=== PATIENT | male | born 1960 | race Caucasian/White ===

== ENCOUNTER → 2018-01-03 12:19 | Outpatient (REF) | payer MEDICARE, MEDICAID, SELFPAY ==
[2018-01-03 21:54] LABS: Anion Gap 8.2 mmol/L (3-11); BUN 24 mg/dL (7-18); CO2 28.8 mmol/L (21.0-32.0); CREATININE 1.12 mg/dL (0.70-1.30); Calcium 9.1 mg/dL (8.5-10.1); Chloride 102 mmol/L (98-107); Glucose 128 mg/dL (70-100); Magnesium 2.1 mg/dL (1.8-2.4); Potassium 3.4 mmol/L (3.5-5.1); Sodium 139 mmol/L (136-145)
[2018-01-04 10:22] LABS: Vitamin B12 619 pg/mL (193-986)
[2018-01-04 10:39] LABS: FREE T4 1.02 ng/dL (0.76-1.46)
== END ==
LOC: NCHCN 12:19
PROVIDERS: PCP Family Medicine; Visit Provider Family Medicine
DX: E11.9 Type 2 diabetes mellitus without complications (principal); I50.9 Heart failure, unspecified; I34.0 Nonrheumatic mitral (valve) insufficiency
CPT/HCPCS: 80048; 82607; 83735; 84439; 84443

== ENCOUNTER → 2018-01-07 13:00 | Outpatient (CLI) | payer MEDICARE, MEDICAID, SELFPAY | PROVIDERS: PCP Family Medicine; Visit Provider Internal Medicine Interventional Cardiology | DX: I25.10 Atherosclerotic heart disease of native coronary artery without angina pectoris (principal); I42.9 Cardiomyopathy, unspecified; Z95.810 Presence of automatic (implantable) cardiac defibrillator; I51.89 Other ill-defined heart diseases; I27.0 Primary pulmonary hypertension; G47.30 Sleep apnea, unspecified; I34.0 Nonrheumatic mitral (valve) insufficiency; F11.90 Opioid use, unspecified, uncomplicated | CPT/HCPCS: 99213 ==

== ENCOUNTER → 2018-01-07 14:01 | Outpatient (CLI) | payer MEDICARE, MEDICAID, SELFPAY | PROVIDERS: PCP Family Medicine; Visit Provider Internal Medicine Interventional Cardiology | DX: R94.31 Abnormal electrocardiogram [ECG] [EKG] (principal) | CPT/HCPCS: 93005; 93010; 99213 ==

== ENCOUNTER 2018-01-08 15:18 | Emergency (ER) | payer OTHER, SELFPAY ==
[2018-01-08 15:25] VITALS: BP 126/80; PULSE 83; RESP 16; TEMP 36.6; O2SAT 96
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
[2018-01-08] MEDS: Ketorolac 30 MG/ML VIAL IM (16:42)
[2018-01-08] MEDS: Lidocaine 5% Patch 2 PATCH TP (17:00)
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
== END 2018-01-08 17:40 | disposition home or self-care (01) ==
PROVIDERS: Emergency Provider Emergency Medicine; PCP Family Medicine
DX: S16.1XXA Strain of muscle, fascia and tendon at neck level, initial encounter (principal); V43.62XA Car passenger injured in collision with other type car in traffic accident, initial encounter; R51 Headache; Z04.3 Encounter for examination and observation following other accident
CPT/HCPCS: 96372; 99285; 70450; 72125; 99284; J1885

== ENCOUNTER → 2018-02-08 00:45 | Outpatient (CLI) | payer MEDICARE, SELFPAY ==
--- NOTE | 2018-02-08 13:57 | MERGE_ITS ---
*[facility]* *[facility]* [address] [place] [address] Date of study: 02/08/2018 Transthoracic Echocardiography M-mode, complete 2D, complete spectral Doppler, and color Doppler *STUDY CONCLUSIONS* Summary: 1. Left ventricle: The cavity size was dilated. Wall thickness was normal. Systolic function was severely reduced. The estimated ejection fraction was 25-30%. Severe diffuse hypokinesis with regional variations. Akinesis of the anteroseptal, anterior, and apical myocardium. 2. Right ventricle: The cavity size was normal. Systolic function was low normal. 3. Left atrium: The atrium was moderately dilated. 4. Mitral valve: There was moderate regurgitation. 5. Inferior vena cava: The vessel was normal in size. The respirophasic diameter changes were in the normal range (greater than or equal to 50%), consistent with normal central venous pressure. *PATIENT PRESENTATION* Height: 188cm ((74in) ) S/D Pressure: 109 / 69 Weight: 104.3kg ((229.5lb) ) BSA: 2.35m^2 Test start time: 01:45 PM. Test stop time: 02:45 PM. ORDERING Tyrone Owens MD REFERRING Tyrone Owens MD PERFORMING Unknown PERFORMING [facility] RESET [facility] [place] *PROCEDURE DATA* Procedure information: This study was interpreted by [facility]. Pertinent images and digital data are archived for permanent storage and are available for subsequent review. Comparison was made to the study of 09/05/2017. Study status: Routine. Transthoracic echocardiography. M-mode, complete 2D, complete spectral Doppler, and color Doppler. A Transthoracic Echocardiogram was performed. Scanning was performed from the parasternal, apical, subcostal, and suprasternal notch acoustic windows. Images were obtained using an [employer] 2000 cardiac ultrasound machine. Image quality was adequate. Study completion: The patient tolerated the procedure well. There were no complications. History: PMH: CAD, Cardiomyopathy. *CARDIAC ANATOMY* Left ventricle: The cavity size was dilated. Wall thickness was normal. Systolic function was severely reduced. The estimated ejection fraction was 25-30%. Severe diffuse hypokinesis with regional variations. Regional wall motion abnormalities: Akinesis of the anteroseptal, anterior, and apical myocardium. Aortic valve: Trileaflet; mildly thickened leaflets. Mobility was not restricted. Doppler: Transvalvular velocity was within the normal range. There was no stenosis. There was no significant regurgitation. VTI ratio of LVOT to aortic valve: 1.13. Valve area (VTI): 4.1cm^2. Indexed valve area (VTI): 1.7cm^2/m^2. Peak velocity ratio of LVOT to aortic valve: 1.92. Valve area (Vmax): 7cm^2. Indexed valve area (Vmax): 3cm^2/m^2. Mean velocity ratio of LVOT to aortic valve: 0.75. Valve area (Vmean): 2.7cm^2. Indexed valve area (Vmean): 1.2cm^2/m^2. Mean gradient (S): 3.4mm Hg. Peak gradient (S): 1.1mm Hg. Aorta: Aortic root: The aortic root was normal in size. Ascending aorta: The ascending aorta was normal in size. Mitral valve: Mildly thickened leaflets. Mobility was not restricted. Doppler: Transvalvular velocity was within the normal range. There was no evidence for stenosis. There was moderate regurgitation. Valve area by pressure half-time: 5.5cm^2. Indexed valve area by pressure half-time: 2.3cm^2/m^2. Peak gradient (D): 2.6mm Hg. Left atrium: The atrium was moderately dilated. Right ventricle: The cavity size was normal. Systolic function was low normal. Pulmonic valve: Poorly visualized. Doppler: Transvalvular velocity was within the normal range. There was no evidence for stenosis. There was no significant regurgitation. Tricuspid valve: Structurally normal valve. Doppler: Transvalvular velocity was within the normal range. There was no evidence for stenosis. There was mild regurgitation. Pulmonary artery: Poorly visualized. Systolic pressure could not be accurately estimated. Right atrium: The atrium was normal in size. Pericardium: There was no pericardial effusion. Systemic veins: Inferior vena cava: The vessel was normal in size. The respirophasic diameter changes were in the normal range (greater than or equal to 50%), consistent with normal central venous pressure. Measurements Left ventricle Value 09/05/2017 Reference LV ID, ED, PLAX (H) 6.8 cm 8.0 3.5 - 6.0 LV ID, ES, PLAX (H) 5.8 cm 6.7 2.1 - 4.0 LV PW thickness, ED, PLAX 1.0 cm 0.6 LV end-diastolic volume, 157 ml 245 1-p A2C LV ejection fraction, 1-p 34 % 35 A2C LV end-diastolic volume, 198 ml 207 1-p A4C LV e', medial 0.072 m/sec 0.042 LV E/e', medial 11 23 Ventricular septum Value 09/05/2017 Reference IVS thickness, ED, PLAX 1.0 cm 0.6 LVOT Value 09/05/2017 Reference LVOT ID, A-P 2.2 cm 2.2 LVOT area 3.6 cm^2 3.7 LVOT peak velocity, S 1.02 m/sec 1.05 LVOT mean velocity, S 0.68 m/sec 0.79 LVOT VTI, S 22.0 cm 22.2 LVOT peak gradient, S 4.1 mm Hg 4.4 LVOT mean gradient, S 2.2 mm Hg 2.7 Stroke volume (SV), LVOT 80 ml 81 DP Stroke index (SV/bsa), 34 ml/m^2 35 LVOT DP Aortic valve Value 09/05/2017 Reference Aortic valve peak 0.5 m/sec 1.3 velocity, S Aortic valve mean 0.91 m/sec 0.92 velocity, S Aortic valve VTI, S 19.5 cm 29.1 Aortic mean gradient, S 3.4 mm Hg 3.7 Aortic peak gradient, S 1.1 mm Hg VTI ratio, LVOT/AV 1.13 0.76 Aortic valve area, VTI 4.1 cm^2 2.8 Velocity ratio, peak, 1.92 0.84 LVOT/AV Aortic valve area, peak 7 cm^2 3.1 velocity Velocity ratio, mean, 0.75 0.86 LVOT/AV Aortic valve area, mean 2.7 cm^2 3.2 velocity Aortic valve area/bsa, 1.2 cm^2/m^2 1.4 mean velocity Aorta Value 09/05/2017 Reference Aortic root ID, ED 3.4 cm 3.4 Ascending aorta ID, A-P, S 3.5 cm 3.5 Left atrium Value 09/05/2017 Reference LA ID, A-P, ES 4.6 cm 4.8 LA ID/bsa, A-P 1.9 cm/m^2 2.1 <=2.2 LA area, ES, A4C (H) 25 cm^2 28.5 8.8 - 23.4 LA area, ES, A2C 27 cm^2 24 LA volume/bsa, S 43 ml/m^2 LA volume, ES, 2-p 92 ml 87 LA volume/bsa, ES, 2-p 39 ml/m^2 37 LA/aortic root ratio 1.34 1.42 Mitral valve Value 09/05/2017 Reference Mitral E-wave peak 0.81 m/sec 0.97 velocity Mitral A-wave peak 0.48 m/sec 0.64 velocity Mitral deceleration time (L) 138 ms 129 150 - 230 Mitral pressure half-time 40 ms 38 Mitral peak gradient, D 2.6 mm Hg 3.8 Mitral E/A ratio, peak 1.7 1.53 Mitral valve area, PHT, DP 5.5 cm^2 5.9 Tricuspid valve Value 09/05/2017 Reference Tricuspid regurg peak 2.5 m/sec 3.2 velocity Tricuspid peak RV-RA 25.1 mm Hg 40 gradient Right atrium Value 09/05/2017 Reference RA area, ES, A4C 16.6 cm^2 22.5 8.3 - 19.5 Legend: (L) and (H) rosemary values outside specified reference range. I have personally reviewed the images and have reviewed and edited the reported findings. Electronically signed by Irvin Martinez 02/08/2018 15:05
== END ==
PROVIDERS: PCP Family Medicine; Visit Provider Internal Medicine Interventional Cardiology
DX: I25.10 Atherosclerotic heart disease of native coronary artery without angina pectoris (principal); I42.9 Cardiomyopathy, unspecified; I50.1 Left ventricular failure, unspecified; I05.1 Rheumatic mitral insufficiency
CPT/HCPCS: 93306

== ENCOUNTER 2018-06-10 12:58 | Emergency (ER) | payer MEDICARE, MEDICAID, SELFPAY ==
[2018-06-10] VITALS (55 sets, daily range): BP systolic 93–134; BP diastolic 17–85; PULSE 49–82; RESP 8–22; TEMP 36.3–36.7; O2SAT 91–198
--- NOTE | 2018-06-10 13:10 | W.ED.GENAD ---
Discharge Plan Disposition Patient Disposition: AGAINST MEDICAL ADVICE Condition: Serious Discharge Details Chief Complaint: Palpitatns Clinical Impression: Implantable cardioverter-defibrillator (ICD) discharge Reason For Visit: ICD firing more than usual Primary Care Provider: Farida Hall V ED Provider: Margareth Contreras Home Meds and New Rx's Prescriptions: No Action clonazepam 1 MG tablet,disintegrating 0.5 tab PO BID RF: 0 methadone [Dolophine] 10 MG tablet 60 mg PO TID RF: 0 aspirin [Aspir-81] 81 MG tablet,delayed release (DR/EC) 81 mg PO DAILY AM RF: 0 nitroglycerin [Nitrostat] 0.4 MG tablet, sublingual 0.4 mg Sublingual DIRECTED PRNRF: 0 oxycodone 20 MG tablet 1 - 2 tab PO Q4H PRN PRNRF: 0 dronabinol 5 MG capsule 5 mg PO BID PRNRF: 0 Narcan 4 MG spray,non-aerosol 4 mg Intranasal PRN PRNRF: 0 Sildenafil Citrate [Sildenafil] 20 MG Tablet 20 mg PO TID RF: 0 gabapentin 300 MG capsule 300 mg PO TID RF: 0 gabapentin 600 MG tablet 1,200 mg PO TID RF: 0 metoprolol succinate 50 MG tablet extended release 24 hr 50 mg PO DAILY RF: 0 Incruse Ellipta 7 CAP/INH blister with device 62.5 mcg Inhalation DAILY PRN PRNRF: 0 torsemide [Demadex] 20 MG tablet 20 mg PO DAILY Qty: 30 RF: 0 atorvastatin 40 MG tablet 40 mg PO HS Qty: 5 RF: 0 lisinopril 5 MG tablet 5 mg PO DAILY Qty: 5 RF: 0 prasugrel [Effient] 10 MG tablet 10 mg PO DAILY Qty: 5 RF: 0 Discharge Instructions Additional Instructions: You are leaving against medical advise. You may return any time for further care. You are at risk for permanent disability or secondary to this issue. Referrals: Farida Hall MD [Primary Care Provider] - Discharge Data Discharge Date/Time-TO BE ENTERED AT DEPARTURE: 06/10/18 18:30 Medical Decision Making <Denia Cummins MD - Last Filed: 06/12/18 11:57> Kareem Zuluaga is a 57-year-old man with history of coronary artery disease with MIs in the past, cardiac arrest in the past, status post [employer] ICD placed 06/21 presenting to the emergency department with several episodes of ICD firing preceded by lightheadedness. On exam patient is well and nontoxic appearing. His benign cardiopulmonary exam. Concern for arrhythmia causing device firing versus device malfunction, metabolic/light derangement, ACS. Exam/history not consistent with sepsis, PE, acute aortic pathology. Plan for EKG, chest x-ray, screening labs, telemetry. Cardiology consult to [facility]. Received call back from [facility], patient has used home device to self report ICD firing, report sent back to [facility] shows episodes of V. tach. They request transfer to [facility]. They also request patient be started on amiodarone bolus of 150 mg, followed by 1 mg/min of amiodarone over [address] Etienne. Pt adamantly refusing transfer to [facility], reports that he had a terrible patient experience when he was admitted in the past. Attempted to transfer to [facility], discussed with Dr. Spencer of cardiology. Dr. Spencer accepted Pt, but no beds available at [facility] until tomorrow or the next day. Relayed information to patient, who continues to refuse transfer to [facility] and states that he would rather then go to [facility]. Attempting to form a reasonable secondary plan for patient, as given his current situation I am concerned that he is at very high risk for sudden , which I have relayed to patient and which she has verbalized understanding of. 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 Discussed patient with Dr. Owens, as patient is reporting that he will leave the hospital AGAINST MEDICAL ADVICE rather than be transferred to [facility]. Dr. Owens recommends no outpatient p.o. amnio, as further amiodarone in setting of methadone use in unmonitored setting could cause deadly arrhythmia. Will attempt to transfer patient to [facility] until he can be definitively transferred to [facility]. Patient accepted for transfer to [facility] by Dr. Larios. Patient now states to me that he refused to be transferred to any facility tonight, and wishes to go home for the night. He states that he will return either here or to [facility] tomorrow at some point, but states that he has things to do. I have had multiple, lengthy discussions with this patient regarding the risk that he could or be permanently disabled should he choose to leave the emergency department AGAINST MEDICAL ADVICE tonight. Patient verbalizes understanding of this risk multiple times, and continues to state that he wishes to leave. He understands that he will not be able to be discharged on antidysrhythmic medication given the risk. He understands that methadone may increase his risk of dysrhythmia in the setting of receiving amiodarone tonight. Patient to [facility] with amiodarone infusion completion pending, repeat EKG shows QTC 476 after approximately 1 hour of amiodarone infusion. Plan for repeat EKG every hour, with plan to stop infusion if QTC exceeds 520. Patient understands that he may change his mind and be transferred to [facility] at any time. Medical Records Medical records reviewed: Yes I reviewed the patient's medical records. Imaging Data Radiologic Study: Attestation: I personally reviewed and interpreted this imaging study as follows: Radiologist's impression: CHEST X-RAY, PA AND LATERAL: Comparison is 05/17/[address] scan comparison is 05/04/17. The heart size is within normal limits, as is the pulmonary vasculature. There is a battery pack seen along the left chest wall. Calcification in the left mid lung appears stable. There is also stable blunting of the right costophrenic angle. No new infiltrates, effusions or pneumothoraces are identified. Degenerative changes are seen in the spine. Stable compression deformities are seen in the mid thoracic spine. IMPRESSION: Overall, no significant change in appearance of the chest. No acute abnormality. Lab Data Lab results reviewed: Yes I reviewed the patient's lab results. Laboratory Tests Range/Units 06/10/18 06/10/18 14:03 14:03 WBC (4.4-10.8) k/cumm 5.17 RBC (4.50-6.00) m/cumm 4.30 L Hgb (13.5-17.5) g/dL 12.9 L Hct (40.0-50.0) % 39.5 L MCV (80-95) fL 91.9 MCH (27.0-33.0) pg 30.0 MCHC (32.0-36.0) g/dL 32.7 RDW (11.8-14.1) % 13.3 Plt Count (130-400) x1000/uL 251 MPV (8.0-11.0) fL 9.7 Immature Gran % 0.2 Neutrophils % 54.2 Lymphocytes % 28.6 Monocytes % 11.0 Eosinophils % 5.2 Basophils % 0.8 Absolute Neutrophils (1.2-6.7) k/cumm 2.80 Absolute Lymphocytes (1.2-3.4) k/cumm 1.48 Absolute Monocytes (0.11-0.7) k/cumm 0.57 Absolute Eosinophils (0.0-0.7) k/cumm 0.27 Absolute Basophils (0.0-0.2) k/cumm 0.04 Sodium (136-145) mmol/L 141 Potassium (3.5-5.1) mmol/L 3.7 Chloride (98-107) mmol/L 102 Carbon Dioxide (21.0-32.0) mmol/L 32.5 H Anion Gap (3-11) mmol/L 6.5 BUN (7-18) mg/dL 12 Creatinine (0.70-1.30) mg/dL 1.00 Estimated GFR/1.73 m2 (mL/min/1.73m2) >= 60.00 Glucose (70-100) mg/dL 90 Calcium (8.5-10.1) mg/dL 8.7 Magnesium (1.8-2.4) mg/dL 1.9 Total Bilirubin (0.2-1.0) mg/dL 0.4 AST (15-37) U/L 26 ALT (12-78) U/L 21 Alkaline Phosphatase (46-116) U/L 93 Troponin I (0.00-0.06) ng/mL 0.03 Total Protein (6.4-8.2) g/dL 7.5 Albumin (3.4-5.0) g/dL 3.1 L ECG Data Attestation: I personally reviewed and interpreted this ECG (s) as follows: Interpretation: EKG shows normal sinus rhythm at 65 with normal axis, negative anterolateral T waves similar to prior 09/19, not seen 01/19. No STEMI. Nondiagnostic EKG EKG #2 shows normal sinus rhythm at 66 with normal axis, QTC 476, negative anterolateral T waves as on prior <JOSE M Vasquez - Last Filed: 06/11/18 00:27> Care was transitioned to myself by Dr. Cummins. currently receiving IV Amiodarone. He is scheduled for Q1hour EKG to continue monitoring of his QTc. Shortly after care was transitioned to myself, patient requesting to leave without finishing his drip. He is well aware of the risks associated with leaving AMA, I reiterated these at length. Advised his is at risk for permanent disability or with leaving AMA without further evaluation. He is aware that plan was for patient to go to [facility] with further plan to go to [facility] for further care. He reports that he has things to take care of. He reports that he will not use Methadone tonight. Is aware of this medication and the concern with taking this with the Amiodarone. Patient has an appointment with primary care tomorrow. He plans to seek further care tomorrow. He is able to return with worsening symptoms. Again, patient is aware that he is at high risk leaving AMA with his recurrent ICD firing which was reported to be Vtach. HPI <Denia Cummins MD - Last Filed: 06/12/18 11:57> General Mode of arrival: ambulatory. Date/Time Provider Initiated Documentation: 06/10/18 13:10. Limitations to Documentation: no limitations. Information obtained by: patient, family, RN notes reviewed and old records reviewed. HPI Narrative: Kareem Zuluaga is a 57 y/o man with history of coronary artery disease, high cholesterol, cardiac arrest in the past, status post [employer] ICD presenting to the emergency department with ICD firing. Patient had ICD placed last June. He reports that in the past 6 weeks he has had 6 or 7 episodes of ICD firing, with 2 episodes in the last 48 hours. All of these episodes have occurred while patient was at rest, and most recent episode was at 4 AM this morning and woke patient from sleep. He reports that prior to these episodes he does have a sensation of lightheadedness. Currently he is asymptomatic. He has been having no pain, shortness of breath, nausea/vomiting/diarrhea, cough, fevers, numbness/weakness/tingling. Currently feels in his usual state of health. No recent travel. Has been eating and drinking normally. Related Data Home Medications Medication Instructions Recorded Confirmed aspirin [Aspir-81] 81 mg PO DAILY AM 10/16/12 06/10/18 methadone [Dolophine] 60 mg PO TID 10/16/12 06/10/18 nitroglycerin [Nitrostat] 0.4 mg SUBLINGUAL DIRECTED PRN 10/16/12 06/10/18 clonazepam 0.5 tab PO BID tab-cap 04/10/16 06/10/18 dronabinol 5 mg PO BID PRN 06/02/16 06/10/18 oxycodone 1 - 2 tab PO Q4H PRN PRN 06/02/16 06/10/18 atorvastatin 40 mg PO HS #5 tab-cap 05/19/17 06/10/18 lisinopril 5 mg PO DAILY #5 tab-cap 05/19/17 06/10/18 prasugrel [Effient] 10 mg PO DAILY #5 tablet 05/19/17 06/10/18 torsemide [Demadex] 20 mg PO DAILY #30 tab 05/19/17 06/10/18 Narcan 4 mg INTRANASAL PRN PRN 07/01/17 06/10/18 Sildenafil Citrate [Sildenafil] 20 mg PO TID 07/01/17 01/08/18 gabapentin 300 mg PO TID 07/01/17 06/10/18 Incruse Ellipta 62.5 mcg INHALATION DAILY PRN PRN 01/08/18 06/10/18 gabapentin 1,200 mg PO TID 01/08/18 06/10/18 metoprolol succinate 50 mg PO DAILY 01/08/18 06/10/18 Previous Rx's Medication Instructions Recorded atorvastatin 40 mg PO HS #5 tab-cap 05/19/17 lisinopril 5 mg PO DAILY #5 tab-cap 05/19/17 prasugrel [Effient] 10 mg PO DAILY #5 tablet 05/19/17 torsemide [Demadex] 20 mg PO DAILY #30 tab 05/19/17 Allergies Allergy/AdvReac Type Severity Reaction Status Date / Time fluoxetine HCl [From Prozac] Allergy Intermediate FELT AWFUL Unverified 06/10/18 13:39 duloxetine Allergy Mild DOESN'T Unverified 06/10/18 13:39 FEEL WELL ticagrelor [From Brilinta] AdvReac Severe Unverified 06/10/18 13:39 Review of Systems <Denia Cummins MD - Last Filed: 06/12/18 11:57> Review of Systems Constitutional: denies fevers Eyes: denies eye pain ENT: denies facial pain, dental pain, sore throat Cardiovascular: denies chest pain, edema Respiratory: denies SOB, cough GI: denies abdominal pain, vomiting, diarrhea : denies flank pain MSK: denies back pain, neck pain, arthralgias, myalgias Skin: denies rash Neuro: denies headaches, weakness, reports lightheadedness PFSH <Denia Cummins MD - Last Filed: 06/12/18 11:57> Social History Smoking/Tobacco Use Status: Current-Occasional Exam <Denia Cummins MD - Last Filed: 06/12/18 11:57> Narrative Exam Narrative: Constitutional: well and [id number], pleasant, conversing normally HENT: head atraumatic, normocephalic normal inspection, mucous membranes moist Eyes: conjunctiva normal, sclera normal, pupils 3mm b/l Neck: no stridor, normal ROM, trachea midline Chest: normal inspection Resp: normal work of breathing, LCTAB Cardio: normal rate, normal rhythm GI: abdomen soft, non-tender, non-distended Back: normal inspection, no rash Skin: warm, dry, normal color, no rash Neuro: alert, not altered, grossly non-focal, normal tone Ext: no edema, no posterior calf tenderness Psych: normal mood, normal affect, normal behavior Sign Out <Denia Cummins MD - Last Filed: 06/12/18 11:57> Sign Out Data: Sign Out Comment: Patient signed out to Marg[facility] Contreras with amiodarone infusion pending. Patient to have EKGs every hour during infusion, with plan to stop infusion should QTC increased to 520 or beyond. I have had extensive conversation with the patient regarding his disposition and his risk of if he chooses to leave AGAINST MEDICAL ADVICE. He continues to wish to leave AGAINST MEDICAL ADVICE. He currently has a bed open at [facility] for transfer tonight with ultimate plan for transfer to [facility] when a bed opens up there. Patient is aware of this, and has continued to refuse despite understanding the risks of /permanent disability. At this time given my multiple lengthy discussions with the patient regarding his disposition tonight, I anticipate that patient will leave AGAINST MEDICAL ADVICE, however he understands that he may change his mind any time and may choose to be transferred to [facility]. Last updated by Denia Cummins MD at 06/10/18 17:25
--- NOTE | 2018-06-10 13:49 | DI.RAD_ITS ---
SYMPTOMS/DIAGNOSIS: IMPLANTABLE CARDIOVERTER-DEFIBRILLATOR FIRING FREQUENTLY, MORE THAN USUAL CHEST X-RAY, PA AND LATERAL: Comparison is 05/17/[address] scan comparison is 05/04/17. The heart size is within normal limits, as is the pulmonary vasculature. There is a battery pack seen along the left chest wall. Calcification in the left mid lung appears stable. There is also stable blunting of the right costophrenic angle. No new infiltrates, effusions or pneumothoraces are identified. Degenerative changes are seen in the spine. Stable compression deformities are seen in the mid thoracic spine. IMPRESSION: Overall, no significant change in appearance of the chest. No acute abnormality.
[2018-06-10 14:18] LABS: Abs Immature Grans 0.01 k/cumm (0.0-0.09); Absolute Basophil Count 0.04 k/cumm (0.0-0.2); Absolute Eosinophil Count 0.27 k/cumm (0.0-0.7); Absolute Lymphocyte Count 1.48 k/cumm (1.2-3.4); Absolute Monocyte Count 0.57 k/cumm (0.11-0.7); Basophils % 0.8; Eosinophils % 5.2; HCT 39.5 % (40.0-50.0); HGB 12.9 g/dL (13.5-17.5); Immature Grans % 0.2; Lymphocytes % 28.6; Mean Corp. HGB Concentration 32.7 g/dL (32.0-36.0); Mean Corpuscular Volume 91.9 fL (80-95); Mean Platelet Volume 9.7 fL (8.0-11.0); Neutrophils % 54.2; Platelet Count 251 x1000/uL (130-400); RBC Distribution Width 13.3 % (11.8-14.1); White Blood Cell Count 5.17 k/cumm (4.4-10.8)
[2018-06-10 14:25] LABS: ALT 21 U/L (12-78); AST 26 U/L (15-37); Albumin 3.1 g/dL (3.4-5.0); Alkaline Phosphatase 93 U/L (46-116); Anion Gap 6.5 mmol/L (3-11); BUN 12 mg/dL (7-18); Bilirubin, Total 0.4 mg/dL (0.2-1.0); CO2 32.5 mmol/L (21.0-32.0); Calcium 8.7 mg/dL (8.5-10.1); Chloride 102 mmol/L (98-107); Glucose 90 mg/dL (70-100); Magnesium 1.9 mg/dL (1.8-2.4); Potassium 3.7 mmol/L (3.5-5.1); Sodium 141 mmol/L (136-145); Total Protein 7.5 g/dL (6.4-8.2); Troponin I 0.03 ng/mL (0.00-0.06)
[2018-06-10] MEDS: Amiodarone 150 MG/3 ML VIAL IVP (15:33)
== END 2018-06-10 18:30 | disposition left against medical advice (07) ==
PROVIDERS: Student in an Organized Health Care Education/Training Program; Emergency Provider Physician Assistant; PCP Family Medicine
DX: R00.2 Palpitations (principal); Z95.810 Presence of automatic (implantable) cardiac defibrillator; I25.3 Aneurysm of heart; I25.10 Atherosclerotic heart disease of native coronary artery without angina pectoris; F11.20 Opioid dependence, uncomplicated; Z53.29 Procedure and treatment not carried out because of patient's decision for other reasons
CPT/HCPCS: 36415; 80053; 93005; 96365; 96366; 96375; 99285; 71046; 83735; 84484; 85025; 93010; 99284; J3490

== ENCOUNTER → 2018-08-06 10:54 | Outpatient (BNVA) | payer MEDICARE, MEDICAID, SELFPAY | PROVIDERS: PCP Family Medicine; Referring Provider Family Medicine; Visit Provider Orthopaedic Surgery | DX: M65.331 Trigger finger, right middle finger (principal) | CPT/HCPCS: 99213; 99214 ==

== ENCOUNTER 2018-08-07 13:06 | Day surgery (SDC) | payer MEDICARE, MEDICAID, SELFPAY ==
[2018-08-07 13:28] VITALS: BP 107/72; PULSE 87; RESP 18; TEMP 35.1; O2SAT 97
[2018-08-07] MEDS: Lidocaine 2% Pres-Free 5 ML VIAL (15:07)
--- NOTE | 2018-08-07 15:31 | W.PM.DSUDISC ---
Discharge Plan Disposition Patient Disposition: HOME Condition: Good Discharge Details Reason For Visit: trigger finger, RMF Attending Provider: Manan Pettit Primary Care Provider: Farida Hall V Home Meds and New Rx's Prescriptions: New ibuprofen 800 mg tablet 800 mg PO QID PRN (Reason: pain) Qty: 20 RF: 0 Continued clonazepam 1 MG tablet,disintegrating 0.5 tab PO BID RF: 0 gabapentin 600 mg tablet 1,200 mg PO BID RF: 0 spironolactone 25 mg tablet 12.5 mg PO DAILY RF: 0 methadone [Dolophine] 10 mg tablet 10 mg PO DIRECTED RF: 0 tadalafil [Cialis] 10 mg tablet 5 mg PO DAILY PRNRF: 0 metoprolol succinate [Toprol XL] 100 mg tablet extended release 24 hr 100 mg PO DAILY RF: 0 aspirin [Aspir-81] 81 MG tablet,delayed release (DR/EC) 81 mg PO DAILY AM RF: 0 nitroglycerin [Nitrostat] 0.4 MG tablet, sublingual 0.4 mg Sublingual DIRECTED PRNRF: 0 oxycodone 20 MG tablet 1 - 2 tab PO Q4H PRN PRNRF: 0 dronabinol 5 MG capsule 5 mg PO BID PRNRF: 0 Narcan 4 MG spray,non-aerosol 4 mg Intranasal PRN PRNRF: 0 Sildenafil Citrate [Sildenafil] 20 MG Tablet 20 mg PO TID RF: 0 metoprolol succinate 50 MG tablet extended release 24 hr 50 mg PO DAILY RF: 0 Incruse Ellipta 7 CAP/INH blister with device 62.5 mcg Inhalation DAILY PRN PRNRF: 0 torsemide [Demadex] 20 MG tablet 20 mg PO DAILY Qty: 30 RF: 0 atorvastatin 40 MG tablet 40 mg PO HS Qty: 5 RF: 0 lisinopril 5 MG tablet 5 mg PO DAILY Qty: 5 RF: 0 prasugrel [Effient] 10 MG tablet 10 mg PO DAILY Qty: 5 RF: 0 Discharge Instructions Additional Instructions: Bend and straighten fingers R hand 10 times/hour when awake to prevent swelling and stiffness. Remove dressings, shower or bathe and get incision wet after 48 hours. Leave incision uncovered when it is dry and sealed. Follow up in 's office in 10-14 days. Referrals: Manan Pettit MD [ [facility] STAFF PHYSICIAN] - (f/u in 10-14 days.) Activity:: Activity as Tolerated Remove Dressings/Wound Care:: 48 hours Shower/Bathe:: 48 hours Diet:: As Tolerated Discharge Orders Discharge Orders: Discharge Order (Routine); Ordered 08/07/18 Ordered By: Manan Pettit DS: Diagnosis Discharge Diagnosis (1) Trigger finger, right middle finger: Status: Acute
--- NOTE | 2018-08-08 18:25 | ROE_ITS ---
DATE OF PROCEDURE: August 07, 2018 PREOPERATIVE DIAGNOSIS: Trigger right middle finger. POSTOPERATIVE DIAGNOSIS: Trigger right middle finger. PROCEDURE: Tendon sheath incision for trigger right middle finger release. SURGEON: Manan Pettit M.D. ANESTHESIA: Local infiltration of 1% xylocaine solution and 0.5% Marcaine with epinephrine solution. INDICATIONS: This is a 58-year-old white male with painful locking of his right middle finger of sev eral weeks' duration. This happens with great frequency. It is so painful that he is reluctant to s traighten his middle finger and is starting to develop a flexion contracture of the PIP joint. Loup er finger release was recommended to alleviate his pain, reverse the flexion contracture, and allow b zoe use of his right hand. The risks and complications of the procedure were explained to the johnie ent in detail preoperatively. PROCEDURE: The patient was taken to the Operating Room on 08/07/18. He was placed supine on the opera ting table. The right hand was prepped and draped free in the usual sterile fashion. I infiltrated the skin over the flexor sheath of the right middle finger with 1% xylocaine solution. I then made a n incision parallel to the distal palmar flexion crease and about 5 mm distal to it, centered over th e flexor sheath of the middle finger. The incision was about 2.5 cm in length. The incision was mad e through the skin and subcu. Blunt-tipped Littler scissors were then used to mobilize the soft tiss ues away from the flexor sheath. The flexor sheath, specifically the proximal mishel, was quite thic kened and scarred. I incised the proximal mishel of the flexor sheath in the midline under direct vi eric. When the mishel was fully released, I had the patient flex and extend his right middle finger. He was now able to flex his finger fully without triggering and was able to extend his PIP joint fu lly. The wound was irrigated with saline solution. The wound margins were infiltrated with 0.5% Marcaine with epinephrine solution and the skin edges were approximated with interrupted #4-0 nylon sutures. Sterile dressings were applied and a light pressure dressing was applied to the right palm. The johnie ent tolerated the procedure well and was discharged to the Day Surgery Unit in good condition. The patient was discharged home from the Day Surgery Unit with instructions to move the fingers of hi s right hand 10 times an hour while awake to prevent stiffness and swelling. He may remove his dress ings, shower and get his incision wet after 48 hours. He can leave the incision uncovered when it is dry and sealed. He may use his right hand as much as discomfort allows. He is given a prescription of ibuprofen 800 mg p.o. q.6h. p.r.n. for pain. He will follow up in Dr. Pettit's office in 10 to 1 4 days.
== END 2018-08-07 15:53 | disposition home or self-care (01) ==
PROVIDERS: PCP Family Medicine; Visit Provider Orthopaedic Surgery
PROC: (CPT 26055; principal; 2018-08-07 15:15)
DX: M65.331 Trigger finger, right middle finger (principal)
CPT/HCPCS: 26055

== ENCOUNTER 2018-08-24 14:05 | Emergency (ER) | payer MEDICARE, MEDICAID, SELFPAY ==
[2018-08-24] VITALS (39 sets, daily range): BP systolic 88–156; BP diastolic 50–124; PULSE 48–98; RESP 10–21; TEMP 36.5; O2SAT 92–100
--- NOTE | 2018-08-24 14:22 | DI.RAD_ITS ---
SYMPTOM/DIAGNOSIS: DEFIB SHOCKS PORTABLE AP CHEST: Comparison is made with 06/10/18. The lungs are not well inflated. There is stable minimal blunting of the right costophrenic angle. A lead is again noted superimposed over the spine. IMPRESSION: No acute abnormality.
--- NOTE | 2018-08-24 14:26 | W.ED.GENAD ---
Discharge Plan Disposition Patient Disposition: WIL MEJÍA ([facility]) Condition: Serious Discharge Details Chief Complaint: Chest Pain Clinical Impression: Recurrent ventricular tachycardia, Defibrillator discharge Primary Care Provider: Farida Hall V ED Provider: Korey Rosado Home Meds and New Rx's Prescriptions: No Action clonazepam 1 MG tablet,disintegrating 0.5 tab PO BID RF: 0 gabapentin 600 mg tablet 1,200 mg PO BID RF: 0 methadone [Dolophine] 10 mg tablet 10 mg PO DIRECTED RF: 0 metoprolol succinate [Toprol XL] 100 mg tablet extended release 24 hr 100 mg PO DAILY RF: 0 aspirin [Aspir-81] 81 MG tablet,delayed release (DR/EC) 81 mg PO DAILY AM RF: 0 nitroglycerin [Nitrostat] 0.4 MG tablet, sublingual 0.4 mg Sublingual DIRECTED PRNRF: 0 oxycodone 20 MG tablet 1 - 2 tab PO Q4H PRN PRNRF: 0 dronabinol 5 MG capsule 5 mg PO BID PRNRF: 0 Narcan 4 MG spray,non-aerosol 4 mg Intranasal PRN PRNRF: 0 Sildenafil Citrate [Sildenafil] 20 MG Tablet 20 mg PO TID RF: 0 metoprolol succinate 50 MG tablet extended release 24 hr 50 mg PO DAILY RF: 0 torsemide [Demadex] 20 MG tablet 20 mg PO DAILY Qty: 30 RF: 0 atorvastatin 40 MG tablet 40 mg PO HS Qty: 5 RF: 0 lisinopril 5 MG tablet 5 mg PO DAILY Qty: 5 RF: 0 prasugrel [Effient] 10 MG tablet 10 mg PO DAILY Qty: 5 RF: 0 ibuprofen 800 mg tablet 800 mg PO QID PRN (Reason: pain) Qty: 20 RF: 0 Discharge Data Discharge Date/Time-TO BE ENTERED AT DEPARTURE: 08/24/18 18:04 Medical Decision Making Pertinent [employer] defibrillator information: Phone number for contact: Device ID: [id number] Implanted date 07/09/17 This is a pleasant 58-year-old male with a past medical history of previous IV drug use, cardiac dysrhythmias with a defibrillator/[employer] defibrillator, who had a recent stenting ablation in June of this year, was on 20 mg of metoprolol twice daily, as well as Effient for his stent, and sees Dr. Owens of cardiology. He presents today for 4 episodes of shocks over the last 12 hours. He feels palpitations prior to this and then subsequent shock. His last shock he had a brief episode of unresponsiveness for 5 seconds, and then came to without difficulty. He came immediately to the ER for further evaluation. Currently physical exam is benign. Patient denies any new medications, significant medication changes, IV or illicit drug use, change in his methadone use, or other problems. He denies any symptoms of fever, chills, antibiotics or other complaints. At this time the patient's most recent interrogation was from 08/20/18 which did show V. tach which was shocked, however he does not have any interrogation since then for the last 4 days. We have contacted the [facility] for interrogation of the defibrillator, will perform laboratory workup. Of note the patient's last visit it was made explicitly clear that he does not want to go to department secondary to multiple prior very poor experiences. He is very willing to go to the [facility] or [facility]. We will get amiodarone and lidocaine drawn up in preparation if he does have an episode of V. tach or V. fib again. 5:10 PM The patient's interrogation report has returned and it appears that the patient's episodes were recurrent ventricular tachycardia. Confirming her initial suspicions. We did contact the [facility], and I spoke with Dr. agustin. I discussed the patient's EKG findings, laboratory workup, and current clinical disposition. At this time he recommends amiodarone bolus and infusion, followed by emergent transfer to [facility] for further management. Medication will be started, and the patient will be transferred by a [employer] and publishing systems analyst. I have extensively reviewed the treatment plan with the patient. I have addressed all patient concerns at this time. I have also discussed the plan with the admitting physician and they agree with the current assessment and plan and have agreed to assume responsibility for the patient. All parties demonstrate verbal understanding and agreement with our assessment and plan at this time. FINDINGS: Cardiac pacing or defibrillator device unchanged in position. Left midlung field calcifications unchanged. Mild interstitial lung disease. No focal consolidation. IMPRESSION: No definite evidence of acute cardiopulmonary disease or significant change from the prior exam. Dictated and Authenticated by: Juan Andino MD. EKG 14: 12 Rate 80, PA 173, QTC 468, QRS 107, sinus rhythm, less than 1 mm of elevation in V1 and V2, no ST depressions, no significant Q waves, no evidence of STEMI. Previous EKG from 06/10/[address] findings in V1 and V2. No other significant changes. EKG 17: 50 Rate 64, PA 184, QTc 475, QRS 114, sinus rhythm, no significant ST elevations or depressions compared to prior EKG. No other acute changes. HPI General Date/Time Provider Initiated Documentation: 08/24/18 14:06. HPI Narrative: This is a 58-year-old male with a past medical history of coronary artery disease, mild congestive heart failure, [employer] cardiac defibrillator secondary to history of VT, Effient use for his stent, metoprolol 20 mg twice daily, who got an ablation and stent this past June of this year. Patient states for evaluation of multiple shocks in the last 12 hours. He states that since his initial ablation and stent he had had no significant problems over the last 12 hours he has had 3-4 shocks, which seem to always be ceased preceded by palpitations. He did have a slightly prolonged episode of roughly 3-4 seconds of unresponsiveness during the most recent shock prior to arrival. Currently the patient denies any chest pain, but obviously the shocks are extremely painful. He denies any other numbness tingling weakness headache vision change or other complaints. Patient does have a chronic wound on his right lower martinez which she is getting managed by [facility], as well as a trigger point postop surgical site on his right hand, which has led to it being locked since the surgery, and is having follow-up scheduled with the orthopedic surgeon. Regards to this he is not on any antibiotics, he denies any significant redness, purulent drainage or pain. He is very clear that he does not want any focus on this for his chronic wound infection at this time. Of note his [employer] cardiac defibrillator also since automated reports every Sunday, and reviewing the automatic interrogation from 08/20/18 there is demonstration of a shock episode on 08/17 which showed evidence of polymorphic ventricular arrhythmia for 2 seconds followed by a single shock which was successful. Related Data Home Medications Medication Instructions Recorded Confirmed aspirin [Aspir-81] 81 mg PO DAILY AM 10/16/12 08/24/18 nitroglycerin [Nitrostat] 0.4 mg SUBLINGUAL DIRECTED PRN 10/16/12 08/24/18 clonazepam 0.5 tab PO BID tab-cap 04/10/16 08/24/18 dronabinol 5 mg PO BID PRN 06/02/16 08/24/18 oxycodone 1 - 2 tab PO Q4H PRN PRN 06/02/16 08/24/18 atorvastatin 40 mg PO HS #5 tab-cap 05/19/17 08/24/18 lisinopril 5 mg PO DAILY #5 tab-cap 05/19/17 08/24/18 prasugrel [Effient] 10 mg PO DAILY #5 tablet 05/19/17 08/24/18 torsemide [Demadex] 20 mg PO DAILY #30 tab 05/19/17 08/24/18 Narcan 4 mg INTRANASAL PRN PRN 07/01/17 08/24/18 Sildenafil Citrate [Sildenafil] 20 mg PO TID 07/01/17 08/24/18 metoprolol succinate 50 mg PO DAILY 01/08/18 06/10/18 gabapentin 600 mg tablet 1,200 mg PO BID tab 07/10/18 08/24/18 methadone 10 mg tablet 10 mg PO DIRECTED tab 07/10/18 08/07/18 metoprolol succinate ER 100 mg 100 mg PO DAILY 07/10/18 08/07/18 tablet,extended release 24 hr ibuprofen 800 mg PO QID PRN #20 tab 08/07/18 08/24/18 Previous Rx's Medication Instructions Recorded atorvastatin 40 mg PO HS #5 tab-cap 05/19/17 lisinopril 5 mg PO DAILY #5 tab-cap 05/19/17 prasugrel [Effient] 10 mg PO DAILY #5 tablet 05/19/17 torsemide [Demadex] 20 mg PO DAILY #30 tab 05/19/17 ibuprofen 800 mg PO QID PRN #20 tab 08/07/18 Allergies Allergy/AdvReac Type Severity Reaction Status Date / Time ticagrelor [From Brilinta] AdvReac Severe Unverified 08/06/18 11:01 fluoxetine HCl [From Prozac] AdvReac Intermediate FELT AWFUL Unverified 08/07/18 13:13 duloxetine AdvReac Mild DOESN'T Unverified 08/07/18 13:13 FEEL WELL General Stated Complaint: Chest Pain YANI: 2 Review of Systems Review of Systems All systems reviewed & are unremarkable except as noted in HPI and below PFSH Social History Smoking/Tobacco Use Status: Current-Occasional Alcohol Intake: never Drug use: Current Sobriety Substance use type: does not use Do you feel safe at home: Yes Do you feel safe in your relationship?: Yes Exam Narrative Exam Narrative: 1.Const: Well-nourished, Well-developed, appearing stated age 2.Eyes: PERRL, no conjunctival injection, and symmetrical lids. 3.ENT: Atraumatic external nose and ears. Moist MM. Neck: Symmetric, trachea midline, No thyromegaly. 4.CVS: +S1/S2, No murmurs or gallops. Peripheral pulses 2+ and equal in all extremities. Brisk capillary refill in all extremities. Defibrillator is present in the left lateral chest wall 5.RESP: Unlabored respiratory effort. Clear to auscultation bilaterally. No wheezes rales or rhonchi 6.GI: Soft, Nontender/Nondistended, No hepatosplenomegaly. No guarding or rebound. 7.MSK: Normocephalic/Atraumatic, Extremities w/o deformity or ttp No cyanosis or clubbing, Normal movement of all extremities. There is a chronic wound noted on the patient's right anterior lower martinez. No evidence of cellulitis or infection. The postop surgical incision site on the patient's right hand also demonstrates evidence of mild redness however there is no signs of purulent discharge, warmth, no fusiform swelling of his finger, no clinical evidence of flexor or extensor tenosynovitis at this time. No evidence of significant infection. 8.Skin: Warm, Dry. No rashes or lesions. 9.Neuro: cpc coder II-XII grossly intact. Sensation grossly intact, no focal neurologic deficits. 10.Psych: (AAO) x3. Appropriate mood and affect Course Vital Signs Pulse 81 08/24/18 14:03 Respiratory Rate 17 08/24/18 14:03 Blood Pressure 124/80 08/24/18 14:03 Pulse Oximetry 97 08/24/18 14:03 Temperature 36.5 C 08/24/18 14:10 Temperature Source Temporal Artery Scan 08/24/18 14:10 Pulse 72 08/24/18 14:15 Pulse 77 08/24/18 14:15 Respiratory Rate 15 08/24/18 14:15 Blood Pressure 121/69 08/24/18 14:15 Blood Pressure Mean 80 08/24/18 14:15 Pulse Oximetry 95 08/24/18 14:15 Oxygen Delivery Method Room Air 08/24/18 14:10 Oxygen Flow Rate 0 08/24/18 14:10 Pain Level 7 08/24/18 14:10
--- NOTE | 2018-08-24 14:31 | ED.GENADUL_ITS ---
Discharge Plan Disposition Patient Disposition: WIL MEJÍA ([facility]) Condition: Serious Discharge Details Chief Complaint: Chest Pain Clinical Impression: Recurrent ventricular tachycardia, Defibrillator discharge Primary Care Provider: Farida Hall V ED Provider: Korey Rosado Home Meds and New Rx's Prescriptions: No Action clonazepam 1 MG tablet,disintegrating 0.5 tab PO BID RF: 0 gabapentin 600 mg tablet 1,200 mg PO BID RF: 0 methadone [Dolophine] 10 mg tablet 10 mg PO DIRECTED RF: 0 metoprolol succinate [Toprol XL] 100 mg tablet extended release 24 hr 100 mg PO DAILY RF: 0 aspirin [Aspir-81] 81 MG tablet,delayed release (DR/EC) 81 mg PO DAILY AM RF: 0 nitroglycerin [Nitrostat] 0.4 MG tablet, sublingual 0.4 mg Sublingual DIRECTED PRNRF: 0 oxycodone 20 MG tablet 1 - 2 tab PO Q4H PRN PRNRF: 0 dronabinol 5 MG capsule 5 mg PO BID PRNRF: 0 Narcan 4 MG spray,non-aerosol 4 mg Intranasal PRN PRNRF: 0 Sildenafil Citrate [Sildenafil] 20 MG Tablet 20 mg PO TID RF: 0 metoprolol succinate 50 MG tablet extended release 24 hr 50 mg PO DAILY RF: 0 torsemide [Demadex] 20 MG tablet 20 mg PO DAILY Qty: 30 RF: 0 atorvastatin 40 MG tablet 40 mg PO HS Qty: 5 RF: 0 lisinopril 5 MG tablet 5 mg PO DAILY Qty: 5 RF: 0 prasugrel [Effient] 10 MG tablet 10 mg PO DAILY Qty: 5 RF: 0 ibuprofen 800 mg tablet 800 mg PO QID PRN (Reason: pain) Qty: 20 RF: 0 Discharge Data Discharge Date/Time-TO BE ENTERED AT DEPARTURE: 08/24/18 18:04 Medical Decision Making Pertinent [employer] defibrillator information: Phone number for contact: Device ID: [id number] Implanted date 07/09/17 This is a pleasant 58-year-old male with a past medical history of previous IV drug use, cardiac dysrhythmias with a defibrillator/[employer] defibrillator, who had a recent stenting ablation in June of this year, was on 20 mg of metoprolol twice daily, as well as Effient for his stent, and sees Dr. Owens of cardiology. He presents today for 4 episodes of shocks over the last 12 hours. He feels palpitations prior to this and then subsequent shock. His last shock he had a brief episode of unresponsiveness for 5 seconds, and then came to without difficulty. He came immediately to the ER for further evaluation. Currently physical exam is benign. Patient denies any new medications, significant medication changes, IV or illicit drug use, change in his methadone use, or other problems. He denies any symptoms of fever, chills, antibiotics or other complaints. At this time the patient's most recent interrogation was from 08/20/18 which did show V. tach which was shocked, however he does not have any interrogation since then for the last 4 days. We have contacted the [facility] for interrogation of the defibrillator, will perform laboratory workup. Of note the patient's last visit it was made explicitly clear that he does not want to go to department secondary to multiple prior very poor experiences. He is very willing to go to the [facility] or [facility]. We will get amiodarone and lidocaine drawn up in preparation if he does have an episode of V. tach or V. fib again. 5:10 PM The patient's interrogation report has returned and it appears that the patient's episodes were recurrent ventricular tachycardia. Confirming her initial suspicions. We did contact the [facility], and I spoke with Dr. agustin. I discussed the patient's EKG findings, laboratory workup, and current clinical disposition. At this time he recommends amiodarone bolus and infusion, followed by emergent transfer to [facility] for further management. Medication will be started, and the patient will be transferred by a [employer] and seating captain. I have extensively reviewed the treatment plan with the patient. I have addressed all patient concerns at this time. I have also discussed the plan with the admitting physician and they agree with the current assessment and plan and have agreed to assume responsibility for the patient. All parties demonstrate verbal understanding and agreement with our assessment and plan at this time. FINDINGS: Cardiac pacing or defibrillator device unchanged in position. Left midlung field calcifications unchanged. Mild interstitial lung disease. No focal consolidation. IMPRESSION: No definite evidence of acute cardiopulmonary disease or significant change from the prior exam. Dictated and Authenticated by: Juan Andino MD. EKG 14: 12 Rate 80, IN 173, QTC 468, QRS 107, sinus rhythm, less than 1 mm of elevation in V1 and V2, no ST depressions, no significant Q waves, no evidence of STEMI. Previous EKG from 06/10/[address] findings in V1 and V2. No other significant changes. EKG 17: 50 Rate 64, IN 184, QTc 475, QRS 114, sinus rhythm, no significant ST elevations or depressions compared to prior EKG. No other acute changes. HPI General Date/Time Provider Initiated Documentation: 08/24/18 14:06 . HPI Narrative: This is a 58-year-old male with a past medical history of coronary artery disease, mild congestive heart failure, [employer] cardiac defibrillator secondary to history of VT, Effient use for his stent, metoprolol 20 mg twice daily, who got an ablation and stent this past June of this year. Patient states for evaluation of multiple shocks in the last 12 hours. He states that since his initial ablation and stent he had had no significant problems over the last 12 hours he has had 3-4 shocks, which seem to always be ceased preceded by palpitations. He did have a slightly prolonged episode of roughly 3-4 seconds of unresponsiveness during the most recent shock prior to arrival. Currently the patient denies any chest pain, but obviously the shocks are extremely painful. He denies any other numbness tingling weakness headache vision change or other complaints. Patient does have a chronic wound on his right lower martinez which she is getting managed by [facility], as well as a trigger point postop surgical site on his right hand, which has led to it being locked since the surgery, and is having follow-up scheduled with the orthopedic surgeon. Regards to this he is not on any antibiotics, he denies any significant redness, purulent drainage or pain. He is very clear that he does not want any focus on this for his chronic wound infection at this time. Of note his [employer] cardiac defibrillator also since automated reports every Sunday, and reviewing the automatic interrogation from 08/20/18 there is demonstration of a shock episode on 08/17 which showed evidence of polymorphic ventricular arrhythmia for 2 seconds followed by a single shock which was successful. Related Data Home Medications Medication Instructions Recorded Confirmed aspirin [Aspir-81] 81 mg PO DAILY AM 10/16/12 08/24/18 nitroglycerin [Nitrostat] 0.4 mg SUBLINGUAL DIRECTED PRN 10/16/12 08/24/18 clonazepam 0.5 tab PO BID tab-cap 04/10/16 08/24/18 dronabinol 5 mg PO BID PRN 06/02/16 08/24/18 oxycodone 1 - 2 tab PO Q4H PRN PRN 06/02/16 08/24/18 atorvastatin 40 mg PO HS #5 tab-cap 05/19/17 08/24/18 lisinopril 5 mg PO DAILY #5 tab-cap 05/19/17 08/24/18 prasugrel [Effient] 10 mg PO DAILY #5 tablet 05/19/17 08/24/18 torsemide [Demadex] 20 mg PO DAILY #30 tab 05/19/17 08/24/18 Narcan 4 mg INTRANASAL PRN PRN 07/01/17 08/24/18 Sildenafil Citrate [Sildenafil] 20 mg PO TID 07/01/17 08/24/18 metoprolol succinate 50 mg PO DAILY 01/08/18 06/10/18 gabapentin 600 mg tablet 1,200 mg PO BID tab 07/10/18 08/24/18 methadone 10 mg tablet 10 mg PO DIRECTED tab 07/10/18 08/07/18 metoprolol succinate ER 100 mg 100 mg PO DAILY 07/10/18 08/07/18 tablet,extended release 24 hr ibuprofen 800 mg PO QID PRN #20 tab 08/07/18 08/24/18 Previous Rx's Medication Instructions Recorded atorvastatin 40 mg PO HS #5 tab-cap 05/19/17 lisinopril 5 mg PO DAILY #5 tab-cap 05/19/17 prasugrel [Effient] 10 mg PO DAILY #5 tablet 05/19/17 torsemide [Demadex] 20 mg PO DAILY #30 tab 05/19/17 ibuprofen 800 mg PO QID PRN #20 tab 08/07/18 Allergies Allergy/AdvReac Type Severity Reaction Status Date / Time ticagrelor [From Brilinta] AdvReac Severe Unverified 08/06/18 11:01 fluoxetine HCl [From Prozac] AdvReac Intermediate FELT AWFUL Unverified 08/07/18 13:13 duloxetine AdvReac Mild DOESN'T Unverified 08/07/18 13:13 FEEL WELL General Stated Complaint: Chest Pain YANI: 2 Review of Systems Review of Systems All systems reviewed & are unremarkable except as noted in HPI and below PFSH Social History Smoking/Tobacco Use Status: Current-Occasional Alcohol Intake: never Drug use: Current Sobriety Substance use type: does not use Do you feel safe at home: Yes Do you feel safe in your relationship?: Yes Exam Narrative Exam Narrative: 1.Const: Well-nourished, Well-developed, appearing stated age 2.Eyes: PERRL, no conjunctival injection, and symmetrical lids. 3.ENT: Atraumatic external nose and ears. Moist MM. Neck: Symmetric, trachea midline, No thyromegaly. 4.CVS: +S1/S2, No murmurs or gallops. Peripheral pulses 2+ and equal in all extremities. Brisk capillary refill in all extremities. Defibrillator is present in the left lateral chest wall 5.RESP: Unlabored respiratory effort. Clear to auscultation bilaterally. No wheezes rales or rhonchi 6.GI: Soft, Nontender/Nondistended, No hepatosplenomegaly. No guarding or rebound. 7.MSK: Normocephalic/Atraumatic, Extremities w/o deformity or ttp No cyanosis or clubbing, Normal movement of all extremities. There is a chronic wound noted on the patient's right anterior lower martinez. No evidence of cellulitis or infection. The postop surgical incision site on the patient's right hand also demonstrates evidence of mild redness however there is no signs of purulent discharge, warmth, no fusiform swelling of his finger, no clinical evidence of flexor or extensor tenosynovitis at this time. No evidence of significant infection. 8.Skin: Warm, Dry. No rashes or lesions. 9.Neuro: brim rounder II-XII grossly intact. Sensation grossly intact, no focal neurologic deficits. 10.Psych: (AAO) x3. Appropriate mood and affect Course Vital Signs Pulse 81 08/24/18 14:03 Respiratory Rate 17 08/24/18 14:03 Blood Pressure 124/80 08/24/18 14:03 Pulse Oximetry 97 08/24/18 14:03 Temperature 36.5 C 08/24/18 14:10 Temperature Source Temporal Artery Scan 08/24/18 14:10 Pulse 72 08/24/18 14:15 Pulse 77 08/24/18 14:15 Respiratory Rate 15 08/24/18 14:15 Blood Pressure 121/69 08/24/18 14:15 Blood Pressure Mean 80 08/24/18 14:15 Pulse Oximetry 95 08/24/18 14:15 Oxygen Delivery Method Room Air 08/24/18 14:10 Oxygen Flow Rate 0 08/24/18 14:10 Pain Level 7 08/24/18 14:10
--- NOTE | 2018-08-24 14:38 | NUR.NOTE ---
Nursing Note: [employer] #[id number] Implanted 07-09-2017 Lucy Soler.
[2018-08-24 15:08] LABS: Abs Immature Grans 0.01 k/cumm (0.0-0.09); Absolute Basophil Count 0.04 k/cumm (0.0-0.2); Absolute Eosinophil Count 0.21 k/cumm (0.0-0.7); Absolute Lymphocyte Count 1.26 k/cumm (1.2-3.4); Absolute Monocyte Count 0.55 k/cumm (0.11-0.7); Absolute Neutrophil Count 3.13 k/cumm (1.2-6.7); Basophils % 0.8; HCT 40.6 % (40.0-50.0); HGB 13.1 g/dL (13.5-17.5); Immature Grans % 0.2; Lymphocytes % 24.2; Mean Corp. HGB Concentration 32.3 g/dL (32.0-36.0); Mean Corpuscular Hemoglobin 29.2 pg (27.0-33.0); Mean Corpuscular Volume 90.6 fL (80-95); Mean Platelet Volume 9.9 fL (8.0-11.0); Monocytes % 10.6; Neutrophils % 60.2; Platelet Count 275 x1000/uL (130-400); RBC 4.48 m/cumm (4.50-6.00); RBC Distribution Width 13.9 % (11.8-14.1)
[2018-08-24 15:21] LABS: PTT Activated 19.3 sec (21.0-31.4); Prothrombin Time 10.4 sec (9.3-11.0)
--- NOTE | 2018-08-24 15:44 | DI.VRAD_ITS ---
EXAM: XR Chest, 1 View EXAM DATE/TIME: 08/24/2018 2:24 PM CLINICAL HISTORY: 58 years old, male; Signs and symptoms; Other: Defib shocks TECHNIQUE: Imaging protocol: XR of the chest, 1 view. COMPARISON: CR XR CHEST 2V PA LATERAL 06/10/2018 2:59 PM FINDINGS: Cardiac pacing or defibrillator device unchanged in position. Left midlung field calcifications unchanged. Mild interstitial lung disease. No focal consolidation. IMPRESSION: No definite evidence of acute cardiopulmonary disease or significant change from the prior exam. Dictated and Authenticated by: Juan Andino MD. Ordering:JEYSON Nair MD
[2018-08-24] MEDS: clonazePAM 0.5 MG TAB PO (15:45)
[2018-08-24 16:04] LABS: ALT 28 U/L (12-78); AST 29 U/L (15-37); Albumin 3.4 g/dL (3.4-5.0); Alkaline Phosphatase 108 U/L (46-116); Anion Gap 2.4 mmol/L (3-11); BUN 18 mg/dL (7-18); Bilirubin, Total 0.6 mg/dL (0.2-1.0); CO2 34.6 mmol/L (21.0-32.0); CREATININE 1.01 mg/dL (0.70-1.30); Calcium 8.7 mg/dL (8.5-10.1); Chloride 103 mmol/L (98-107); Glucose 102 mg/dL (70-100); NT-proBNP 1470 pg/mL; PHOSPHORUS 2.7 mg/dL (2.6-4.7); Potassium 3.4 mmol/L (3.5-5.1); Sodium 140 mmol/L (136-145); TSH (W/Ref FT4) 3.77 uIU/mL (0.358-3.74); Total Protein 7.9 g/dL (6.4-8.2)
[2018-08-24 16:05] LABS: Troponin I < 0.02 ng/mL (0.00-0.06)
[2018-08-24 16:24] LABS: FREE T4 0.86 ng/dL (0.76-1.46)
[2018-08-24] MEDS: Potassium Chloride 20 MEQ TABCR 40 MEQ PO (16:24)
[2018-08-24] MEDS: Amiodarone 150 MG/3 ML VIAL IVP (17:28)
--- NOTE | 2018-08-24 17:30 | NUR.NOTE ---
Nursing Note: tech came in to interpret defib results. Amiodarone boulus and infusing given. no episodes of defibillation while patient has been in ER this far. plan for repeat EKG and transfer to [facility]
--- NOTE | 2018-08-24 18:13 | NUR.NOTE ---
Nursing Note: Pt to be transferred to [facility] Asad Hardy RN report to Heidi NEGRON. Pt stable at time of transfer, amioderone drip running. no acute distress.
== END 2018-08-24 18:04 | disposition short-term general hospital (02) ==
PROVIDERS: Emergency Provider Student in an Organized Health Care Education/Training Program; PCP Family Medicine
DX: I47.2 Ventricular tachycardia (principal); I25.10 Atherosclerotic heart disease of native coronary artery without angina pectoris; I50.9 Heart failure, unspecified; Z95.810 Presence of automatic (implantable) cardiac defibrillator; F17.210 Nicotine dependence, cigarettes, uncomplicated
CPT/HCPCS: 36415; 80053; 93005; 96365; 96376; 99285; 71045; 83735; 83880; 84100; 84439; 84443; 84484; 85025; 85610; 85730; 93010; J0282

== ENCOUNTER → 2018-09-11 11:05 | Outpatient (BNVA) | payer MEDICARE, MEDICAID, SELFPAY | PROVIDERS: PCP Family Medicine; Referring Provider Family Medicine; Visit Provider Orthopaedic Surgery | DX: Z47.89 Encounter for other orthopedic aftercare (principal); M65.331 Trigger finger, right middle finger; Z95.810 Presence of automatic (implantable) cardiac defibrillator ==

== ENCOUNTER → 2018-10-22 12:32 | Outpatient (BNVA) | payer MEDICARE, MEDICAID, SELFPAY | PROVIDERS: PCP Family Medicine; Visit Provider Nurse Practitioner Adult Health | DX: F07.81 Postconcussional syndrome (principal); G62.9 Polyneuropathy, unspecified; R46.0 Very low level of personal hygiene; X58.XXXS Exposure to other specified factors, sequela | CPT/HCPCS: 99204; 99215 ==

== ENCOUNTER 2018-11-11 08:40 | Outpatient (CLI) | payer MEDICARE, MEDICAID, SELFPAY | END 2018-11-11 09:00 | PROVIDERS: PCP Family Medicine; Visit Provider Internal Medicine Interventional Cardiology | DX: I25.10 Atherosclerotic heart disease of native coronary artery without angina pectoris (principal); I47.2 Ventricular tachycardia; Z95.810 Presence of automatic (implantable) cardiac defibrillator; I42.9 Cardiomyopathy, unspecified; I34.0 Nonrheumatic mitral (valve) insufficiency; I27.20 Pulmonary hypertension, unspecified; I11.0 Hypertensive heart disease with heart failure; I50.9 Heart failure, unspecified; J44.9 Chronic obstructive pulmonary disease, unspecified; E11.9 Type 2 diabetes mellitus without complications | CPT/HCPCS: 99214; 93005; 93010 ==

== ENCOUNTER 2019-01-30 21:07 | Outpatient (REF) | payer MEDICARE, MEDICAID, SELFPAY ==
[2019-01-30 21:36] LABS: HCT 37.7 % (40.0-50.0); HGB 11.6 g/dL (13.5-17.5); Mean Corp. HGB Concentration 30.8 g/dL (32.0-36.0); Mean Corpuscular Hemoglobin 24.8 pg (27.0-33.0); Mean Corpuscular Volume 80.7 fL (80-95); Mean Platelet Volume 10.7 fL (8.0-11.0); Platelet Count 417 x1000/uL (130-400); RBC 4.67 m/cumm (4.50-6.00); RBC Distribution Width 16.7 % (11.8-14.1); White Blood Cell Count 6.24 k/cumm (4.4-10.8)
[2019-01-30 21:57] LABS: ALT 26 U/L (16-63); AST 34 U/L (15-37); Albumin 3.3 g/dL (3.4-5.0); Alkaline Phosphatase 115 U/L (46-116); Anion Gap 7.6 mmol/L (3-11); BUN 14 mg/dL (7-18); Bilirubin, Total 0.4 mg/dL (0.2-1.0); CO2 32.4 mmol/L (21.0-32.0); CREATININE 1.25 mg/dL (0.70-1.30); Calcium 8.8 mg/dL (8.5-10.1); Chloride 101 mmol/L (98-107); Estimated GFR 59.53 (mL/min/1.73m2); Glucose 127 mg/dL (70-100); Potassium 4.1 mmol/L (3.5-5.1); Sodium 141 mmol/L (136-145); TSH (W/Ref FT4) 6.12 uIU/mL (0.36-3.74); Total Protein 8.1 g/dL (6.4-8.2)
[2019-01-30 22:02] LABS: Hemoglobin A1C 6.1 % (4.5-6.2)
[2019-01-30 22:36] LABS: FREE T4 1.13 ng/dL (0.76-1.46)
== END 2019-01-30 21:27 ==
LOC: NCHCN 21:07
PROVIDERS: PCP Family Medicine; Visit Provider Family Medicine
DX: D64.9 Anemia, unspecified (principal); I50.9 Heart failure, unspecified; M54.89 Other dorsalgia; Z79.01 Long term (current) use of anticoagulants; R73.09 Other abnormal glucose; Z79.899 Other long term (current) drug therapy
CPT/HCPCS: 80053; 85027; 83036; 84439; 84443

== ENCOUNTER 2019-02-18 09:09 | Inpatient (IN) | payer MEDICARE, MEDICAID, SELFPAY ==
[2019-02-18] VITALS (43 sets, daily range): BP systolic 98–142; BP diastolic 54–101; PULSE 61–102; RESP 8–26; TEMP 36.2–37.1; O2SAT 89–100
--- NOTE | 2019-02-18 09:28 | W.ED.GENAD ---
Discharge Plan Disposition Patient Disposition: HOME Condition: Stable Discharge Details Chief Complaint: SOB Clinical Impression: Congestive heart failure (CHF) Primary Care Provider: Farida Hall V ED Provider: Manan Payton Home Meds and New Rx's Prescriptions: No Action mexiletine 200 mg capsule 200 mg PO Q8H RF: 0 clonazepam 1 MG tablet,disintegrating 0.5 tab PO BID RF: 0 gabapentin 600 mg tablet 1,200 mg PO BID RF: 0 methadone [Dolophine] 10 mg tablet 10 mg PO DIRECTED RF: 0 metoprolol succinate [Toprol XL] 100 mg tablet extended release 24 hr 25 mg PO DAILY RF: 0 aspirin [Aspir-81] 81 MG tablet,delayed release (DR/EC) 81 mg PO DAILY AM RF: 0 nitroglycerin [Nitrostat] 0.4 MG tablet, sublingual 0.4 mg Sublingual DIRECTED PRNRF: 0 oxycodone 20 MG tablet 1 - 2 tab PO Q4H PRN PRNRF: 0 dronabinol 5 MG capsule 5 mg PO BID PRNRF: 0 Narcan 4 MG spray,non-aerosol 4 mg Intranasal PRN PRNRF: 0 Sildenafil Citrate [Sildenafil] 20 MG tablet 20 mg PO TID PRNRF: 0 torsemide [Demadex] 20 MG tablet 20 mg PO DAILY Qty: 30 RF: 0 atorvastatin 40 MG tablet 40 mg PO HS Qty: 5 RF: 0 lisinopril 5 MG tablet 5 mg PO DAILY Qty: 5 RF: 0 prasugrel [Effient] 10 MG tablet 10 mg PO DAILY Qty: 5 RF: 0 ibuprofen 800 mg tablet 800 mg PO QID PRN (Reason: pain) Qty: 20 RF: 0 Medical Decision Making 58-year-old male known to me from previous cardiac arrest. He has a complicated past mental history including ischemic cardiomyopathy, diabetes, COPD. He notes 7 to 10 days of progressive worsening shortness of breath that brought on primarily with exertion and by lying flat. States he missed at least 2 doses of diuretic. He has a 5 kg weight gain versus that obtained in cardiology clinic November. He arrives afebrile, conversant and interactive, pulse in the 90s, blood pressure 130s over 80s, 94% sat on room air at rest. Concern for fluid overload/acute on chronic CHF, must exclude underlying new ischemic event, pneumonia. IV placed, labs obtained, patient referred for chest x-ray and EKG. Chest x-ray with bilateral pulmonary interstitial edema. His BNP has risen from 1400 to >10,000. RR and effort improved with supllemental oxygen. Case discussed with Dr. Collazo physical education department chair for the patients pyroglazer Dr. Owens. Given the patient's 10 pound weight gain, relatively complicated cardiac history, and increasing symptoms over days time he will benefit from inpatient admission for IV diuresis, with tentative plan per cardiology to increase torsemide from 20 to 30 mg daily. Medical Records Medical records reviewed: Yes I reviewed the patient's medical records. Lab Data Lab results reviewed: Yes I reviewed the patient's lab results. Labs: Laboratory Results - last 24 hr 02/18/19 02/18/19 02/18/19 09:30 09:30 09:30 WBC 9.59 RBC 4.14 L Hgb 10.1 L Hct 33.7 L MCV 81.4 MCH 24.4 L MCHC 30.0 L RDW 17.0 H Plt Count 342 MPV 10.5 Immature Gran % 0.3 Neutrophils % 81.6 Lymphocytes % 7.5 Monocytes % 10.1 Eosinophils % 0.3 Basophils % 0.2 Absolute Neutrophils 7.82 H Absolute Lymphocytes 0.72 L Absolute Monocytes 0.97 H Absolute Eosinophils 0.03 Absolute Basophils 0.02 PT 12.0 H INR 1.2 H Sodium 138 Potassium 3.9 Chloride 102 Carbon Dioxide 27.0 Anion Gap 9.0 BUN 14 Creatinine 1.11 Estimated GFR/1.73 m2 >= 60.00 Glucose 167 H Calcium 8.3 L Magnesium 1.9 Total Bilirubin 1.3 H AST 28 ALT 23 Alkaline Phosphatase 108 Troponin I 0.05 NT-Pro-B Natriuret Pep 24769 H Total Protein 8.2 Albumin 3.0 L Urine Color Urine Clarity Urine pH Ur Specific [place] Urine Protein Urine Ketones Urine Blood Urine Nitrite Urine Bilirubin Urine Urobilinogen Ur Leukocyte Esterase Urine Glucose 02/18/19 09:39 WBC RBC Hgb Hct MCV MCH MCHC RDW Plt Count MPV Immature Gran % Neutrophils % Lymphocytes % Monocytes % Eosinophils % Basophils % Absolute Neutrophils Absolute Lymphocytes Absolute Monocytes Absolute Eosinophils Absolute Basophils PT INR Sodium Potassium Chloride Carbon Dioxide Anion Gap BUN Creatinine Estimated GFR/1.73 m2 Glucose Calcium Magnesium Total Bilirubin AST ALT Alkaline Phosphatase Troponin I NT-Pro-B Natriuret Pep Total Protein Albumin Urine Color Yellow Urine Clarity Clear Urine pH 6.0 Ur Specific [place] 1.010 Urine Protein Negative Urine Ketones Negative Urine Blood Negative Urine Nitrite Negative Urine Bilirubin Negative Urine Urobilinogen 0.2 Ur Leukocyte Esterase Negative Urine Glucose Negative ECG Data Attestation: I personally reviewed and interpreted this ECG (s) as follows: Prior ECG tracings: available for review Interpretation: Sinus rhythm with intraventricular conduction delay, nonspecific inferolateral T wave changes that are not slightly changed from November 11, 2018. EKG #2 obtained at 1221 reveals normal sinus rhythm with a rate of 64, intraventricular conduction delay and nonspecific ST segment flattening. HPI General Mode of arrival: ambulatory. Date/Time Provider Initiated Documentation: 02/18/19 09:12. Limitations to Documentation: no limitations. Information obtained by: patient. History of Present Illness 58 year old M presents to the emergency department with the chief complaint of 58-year-old male presents from home with family with worsening SOB, described as moderate, Quality is described as dull, and is localized to the chest. Patient reports no radiation. Patient started experiencing this day(s) and it has been constant. Rest improves symptom(s), Other factors that worsen symptoms (lying flat, exertion) . Patient notes shortness of breath; denies cough, fever/chills and syncope. Patient did receive the following treatments prior to arrival, other (Missed 2 doses of diuretic) Related Data Home Medications Medication Instructions Recorded Confirmed aspirin [Aspir-81] 81 mg PO DAILY AM 10/16/12 02/18/19 nitroglycerin [Nitrostat] 0.4 mg SUBLINGUAL DIRECTED PRN 10/16/12 02/18/19 clonazepam 0.5 tab PO BID tab-cap 04/10/16 02/18/19 dronabinol 5 mg PO BID PRN 06/02/16 02/18/19 oxycodone 1 - 2 tab PO Q4H PRN PRN 06/02/16 02/18/19 atorvastatin 40 mg PO HS #5 tab-cap 05/19/17 02/18/19 lisinopril 5 mg PO DAILY #5 tab-cap 05/19/17 02/18/19 prasugrel [Effient] 10 mg PO DAILY #5 tab 05/19/17 02/18/19 torsemide [Demadex] 20 mg PO DAILY #30 tab 05/19/17 02/18/19 Narcan 4 mg INTRANASAL PRN PRN 07/01/17 02/18/19 Sildenafil Citrate [Sildenafil] 20 mg PO TID PRN 07/01/17 02/18/19 gabapentin 600 mg tablet 1,200 mg PO BID tab 07/10/18 02/18/19 methadone 10 mg tablet 10 mg PO DIRECTED tab 07/10/18 02/18/19 metoprolol succinate 100 mg 25 mg PO DAILY 07/10/18 02/18/19 tablet,extended release 24 hr ibuprofen 800 mg PO QID PRN #20 tab 08/07/18 02/18/19 mexiletine 200 mg capsule 200 mg PO Q8H 09/11/18 02/18/19 Previous Rx's Medication Instructions Recorded atorvastatin 40 mg PO HS #5 tab-cap 05/19/17 lisinopril 5 mg PO DAILY #5 tab-cap 05/19/17 prasugrel [Effient] 10 mg PO DAILY #5 tab 05/19/17 torsemide [Demadex] 20 mg PO DAILY #30 tab 05/19/17 ibuprofen 800 mg PO QID PRN #20 tab 08/07/18 Allergies Allergy/AdvReac Type Severity Reaction Status Date / Time ticagrelor [From Brilinta] AdvReac Severe Unverified 10/22/18 12:45 fluoxetine HCl [From Prozac] AdvReac Intermediate FELT AWFUL Unverified 10/22/18 12:45 duloxetine AdvReac Mild DOESN'T Unverified 10/22/18 12:45 FEEL WELL General Stated Complaint: SOB YANI: 2 Review of Systems Review of Systems Narrative: Missed 2 doses of diuretic. States he is otherwise been compliant with medications. 6 systems reviewed and otherwise negative [facility] Medical History Cardiac defibrillator in place (Acute) Cardiomyopathy (Chronic) Chronic anticoagulation (Chronic) Chronic back pain (Chronic) Chronic neck pain (Chronic) Chronic ulcer of right leg (Chronic) Cleft palate and cleft lip (Chronic) Congestive heart failure (Chronic) COPD (chronic obstructive pulmonary disease) (Chronic) Diabetes (Chronic) History of osteomyelitis (Inactive) Hx of myocardial infarction (Inactive) Hx pulmonary embolism (Inactive) Insomnia (Chronic) Mitral regurgitation (Chronic) Peripheral neuropathy (Chronic) PTSD (post-traumatic stress disorder) (Chronic) Sleep apnea (Chronic) Social History Smoking/Tobacco Use Status: Current-Occasional Tobacco Type: e-cigarettes Tobacco: How many years used: 20 Alcohol Intake: never Drug use: Current Sobriety Substance use type: does not use Do you feel safe at home: Yes Do you feel safe in your relationship?: Yes Exam Narrative Exam Narrative: GEN: awake, alert, oriented 3. Pleasant, well groomed, interactive. HEAD: Normocephalic, atraumatic ENT: Mucous membranes moist, oropharynx unremarkable, External ear exam unremarkable EYES: PERRL, EOMI NECK: Full ROM, no MUSTAPHA, no menigismus CHEST/RESP: Nontender, clear to auscultation bilateral, diminished at the bases CARDIOVASCULAR: Distant, RRR, no murmur, rub lo. 2+ Rad pulse bilateral ABDOMEN: Soft, nontender, no mass. +Bowel sounds EXT: Full ROM, right pretibial ulceration without surrounding erythema, trace pretibial edema bilaterally. 1+ DP is palpable bilaterally Neuro: Grossly normal neurologic exam, conversant, interactive. Psych: Speech fluent, thoughts congruent, affect normal Course Vital Signs Vital signs: Vital Signs Temperature 36.5 C 02/18/19 09:15 Pulse 92 H 02/18/19 09:15 Respiratory Rate 25 H 02/18/19 09:15 Blood Pressure 142/101 H 02/18/19 09:15 Pulse Oximetry 95 02/18/19 09:15 Temperature 36.5 C 02/18/19 09:15 Temperature Source Skin 02/18/19 09:15 Pulse 92 H 02/18/19 09:15 Respiratory Rate 25 H 02/18/19 09:15 Respiratory Effort Non-Labored 02/18/19 09:19 Blood Pressure 142/101 H 02/18/19 09:15 Blood Pressure Position Supine 02/18/19 09:15 Pulse Oximetry 95 02/18/19 09:15 Oxygen Delivery Method Room Air 02/18/19 09:15 Oxygen Flow Rate 0 02/18/19 09:15
[2019-02-18 09:41] LABS: Abs Immature Grans 0.03 k/cumm (0.0-0.09); Absolute Basophil Count 0.02 k/cumm (0.0-0.2); Absolute Eosinophil Count 0.03 k/cumm (0.0-0.7); Absolute Lymphocyte Count 0.72 k/cumm (1.2-3.4); Absolute Monocyte Count 0.97 k/cumm (0.11-0.7); Absolute Neutrophil Count 7.82 k/cumm (1.2-6.7); Basophils % 0.2; Eosinophils % 0.3; HCT 33.7 % (40.0-50.0); HGB 10.1 g/dL (13.5-17.5); Immature Grans % 0.3; Lymphocytes % 7.5; Mean Corpuscular Hemoglobin 24.4 pg (27.0-33.0); Mean Corpuscular Volume 81.4 fL (80-95); Mean Platelet Volume 10.5 fL (8.0-11.0); Monocytes % 10.1; Neutrophils % 81.6; Platelet Count 342 x1000/uL (130-400); RBC 4.14 m/cumm (4.50-6.00); White Blood Cell Count 9.59 k/cumm (4.4-10.8)
[2019-02-18 09:50] LABS: INR 1.2 (0.9-1.1)
[2019-02-18 09:52] LABS: Bilirubin Negative (Negative); Blood Negative (Negative); Clarity Clear (Clear); Glucose Negative (Negative); Ketones Negative (Negative); Leukocyte Esterase Negative (Negative); Nitrite Negative (Negative); Urobilinogen 0.2 EU/dL (Up TO 0.2)
--- NOTE | 2019-02-18 10:05 | DI.RAD_ITS ---
EXAM: XR CHEST 2V PA LATERAL CLINICAL HISTORY: Short of breath, history of ischemic cardiomyopathy. TECHNIQUE: 2D digital imaging was performed. COMPARISON: Comparison is made with 06/10/18. FINDINGS: There is interval development of areas of increased density in both lungs. There is a small right ple ural effusion. Heart is not enlarged. There is stable calcified granuloma in the left lung. IMPRESSION: The findings are consistent with congestive failure. The possibility of a superimposed pneumonitis co uld not be excluded.
[2019-02-18 10:06] LABS: ALT 23 U/L (16-63); AST 28 U/L (15-37); Alkaline Phosphatase 108 U/L (46-116); BUN 14 mg/dL (7-18); Bilirubin, Total 1.3 mg/dL (0.2-1.0); CREATININE 1.11 mg/dL (0.70-1.30); Calcium 8.3 mg/dL (8.5-10.1); Chloride 102 mmol/L (98-107); Glucose 167 mg/dL (70-100); Magnesium 1.9 mg/dL (1.8-2.4); NT-proBNP 10654 pg/mL; Potassium 3.9 mmol/L (3.5-5.1); Sodium 138 mmol/L (136-145); Total Protein 8.2 g/dL (6.4-8.2); Troponin I 0.05 ng/mL (0.00-0.06)
[2019-02-18] MEDS: Furosemide 100 MG/10 ML VIAL 80 MG IVP (11:17)
[2019-02-18] MEDS: Aspirin 325 MG TAB PO (11:17)
--- NOTE | 2019-02-18 12:15 | MERGE_ITS ---
*[facility]* *[facility]* [address] [place] [address] Date of study: 02/18/2019 Transthoracic Echocardiography M-mode, complete 2D, complete spectral Doppler, and color Doppler *STUDY CONCLUSIONS* Summary: 1. Left ventricle: The cavity size was severely dilated. Wall thickness was normal. Systolic function was severely reduced. The estimated ejection fraction was 25-30%. Diffuse hypokinesis with regional variations. Akinesis of the apical myocardium and adjacent apical winston. Dyskinesis of the septal myocardium. Cannot exclude apical thrombus. 2. Mitral valve: There was moderate to severe regurgitation. 3. Right ventricle: The cavity size was dilated. Wall thickness was normal. Systolic function was normal. 4. Pulmonary arteries: Pulmonary systolic pressure was increased, in the range of 45mm Hg to 55mm Hg. *PATIENT PRESENTATION* Height: 188cm (74in ) S/D Pressure: 111 / 54 Weight: 105.7kg (232.5lb ) BSA: 2.37m^2 Test start time: 12:30 PM. Test stop time: 01:25 PM. PERFORMING Unknown CONSULTING Timbo Murphy ORDERING Timbo Murphy REFERRING Timbo Murphy PERFORMING [facility] FREELANCE DIRECTOR RT Olivia Chavis)(RITCHIE)RIYA *PROCEDURE DATA* Procedure information: The patient was identified by two identifiers. This study was interpreted by [facility]. Pertinent images and digital data are archived for permanent storage and are available for subsequent review. Comparison was made to the study of 02/08/2018. Study status: Routine. Transthoracic echocardiography. M-mode, complete 2D, complete spectral Doppler, and color Doppler. A Transthoracic Echocardiogram was performed. Scanning was performed from the parasternal, apical, subcostal, and suprasternal notch acoustic windows. Images were obtained using an [id number] cardiac ultrasound machine. Image quality was adequate. Study completion: The patient tolerated the procedure well. There were no complications. History: PMH: CHF. *CARDIAC ANATOMY* Left ventricle: The cavity size was severely dilated. Wall thickness was normal. Systolic function was severely reduced. The estimated ejection fraction was 25-30%. Diffuse hypokinesis with regional variations. Cannot exclude apical thrombus. Regional wall motion abnormalities: Akinesis of the apical myocardium and adjacent apical winston. Dyskinesis of the septal myocardium. Aortic valve: Trileaflet; normal thickness leaflets. Mobility was not restricted. Doppler: Transvalvular velocity was within the normal range. There was no stenosis. There was no significant regurgitation. VTI ratio of LVOT to aortic valve: 0.81. Valve area (VTI): 3.1cm^2. Indexed valve area (VTI): 1.3cm^2/m^2. Peak velocity ratio of LVOT to aortic valve: 0.89. Valve area (Vmax): 3.4cm^2. Indexed valve area (Vmax): 1.4cm^2/m^2. Mean velocity ratio of LVOT to aortic valve: 0.82. Valve area (Vmean): 3.1cm^2. Indexed valve area (Vmean): 1.3cm^2/m^2. Mean gradient (S): 2.6mm Hg. Peak gradient (S): 4.2mm Hg. Aorta: Aortic root: The aortic root was normal in size. Ascending aorta: The ascending aorta was normal in size. Mitral valve: Mildly thickened leaflets. Mobility was not restricted. Doppler: Transvalvular velocity was within the normal range. There was no evidence for stenosis. There was moderate to severe regurgitation. Valve area by pressure half-time: 5.7cm^2. Indexed valve area by pressure half-time: 2.4cm^2/m^2. Peak gradient (D): 2.4mm Hg. Left atrium: The atrium was normal in size. Right ventricle: The cavity size was dilated. Wall thickness was normal. Systolic function was normal. Pulmonic valve: Structurally normal valve. Doppler: Transvalvular velocity was within the normal range. There was no evidence for stenosis. There was no significant regurgitation. Tricuspid valve: Structurally normal valve. Doppler: Transvalvular velocity was within the normal range. There was no evidence for stenosis. There was trivial regurgitation. Pulmonary artery: Pulmonary systolic pressure was increased, in the range of 45mm Hg to 55mm Hg. Right atrium: The atrium was normal in size. Pericardium: There was no pericardial effusion. Systemic veins: Inferior vena cava: Well visualized. The vessel was patent and normal in size. The respirophasic diameter changes were in the normal range (greater than or equal to 50%). Measurements Left ventricle Value 02/08/2018 Reference LV ID, ED, PLAX (H) 7.5 cm 6.8 3.5 - 6.0 LV ID, ES, PLAX (H) 6.4 cm 5.8 2.1 - 4.0 LV PW thickness, ED, PLAX 0.9 cm 1.0 LV end-diastolic volume, 226 ml 157 1-p A2C LV ejection fraction, 1-p 24 % 34 A2C LV end-diastolic volume, 256 ml 198 1-p A4C LV ejection fraction, 1-p 35 % A4C LV e', lateral 0.134 m/sec LV E/e', lateral 6 LV e', medial 0.045 m/sec 0.072 LV E/e', medial 17 11 LV e', average 0.09 m/sec LV E/e', average 9 Ventricular septum Value 02/08/2018 Reference IVS thickness, ED, PLAX 0.8 cm 1.0 LVOT Value 02/08/2018 Reference LVOT ID, A-P 2.2 cm 2.2 LVOT area 3.8 cm^2 3.6 LVOT peak velocity, S 0.92 m/sec 1.02 LVOT mean velocity, S 0.64 m/sec 0.68 LVOT VTI, S 16.1 cm 22.0 LVOT peak gradient, S 3.4 mm Hg 4.1 LVOT mean gradient, S 1.8 mm Hg 2.2 Stroke volume (SV), LVOT 61 ml 80 DP Stroke index (SV/bsa), 26 ml/m^2 34 LVOT DP Aortic valve Value 02/08/2018 Reference Aortic valve peak 1 m/sec 0.5 velocity, S Aortic valve mean 0.8 m/sec 0.9 velocity, S Aortic valve VTI, S 20.0 cm 19.5 Aortic mean gradient, S 2.6 mm Hg 3.4 Aortic peak gradient, S 4.2 mm Hg 1.1 VTI ratio, LVOT/AV 0.81 1.13 Aortic valve area, VTI 3.1 cm^2 4.1 Velocity ratio, peak, 0.89 1.92 LVOT/AV Aortic valve area, peak 3.4 cm^2 7 velocity Velocity ratio, mean, 0.82 0.75 LVOT/AV Aortic valve area, mean 3.1 cm^2 2.7 velocity Aortic valve area/bsa, 1.3 cm^2/m^2 1.2 mean velocity Aorta Value 02/08/2018 Reference Aortic root ID, ED 3.2 cm 3.4 Ascending aorta ID, A-P, S 3.1 cm 3.5 Left atrium Value 02/08/2018 Reference LA ID, A-P, ES 5.7 cm 4.6 LA ID/bsa, A-P (H) 2.4 cm/m^2 1.9 <=2.2 LA volume/bsa, ES, 1-p A4C 67 ml/m^2 LA volume, ES, 2-p 121 ml 92 LA volume/bsa, ES, 2-p 51 ml/m^2 39 LA/aortic root ratio 1.79 1.34 Mitral valve Value 02/08/2018 Reference Mitral E-wave peak 0.77 m/sec 0.81 velocity Mitral A-wave peak 0.64 m/sec 0.48 velocity Mitral deceleration time (L) 132 ms 138 150 - 230 Mitral pressure half-time 38 ms 40 Mitral peak gradient, D 2.4 mm Hg 2.6 Mitral E/A ratio, peak 1.2 1.7 Mitral valve area, PHT, DP 5.7 cm^2 5.5 Mitral peak LV-LA 101.4 mm Hg gradient, S Mitral maximal regurg 5.04 m/sec velocity, PISA Mitral regurg VTI, PISA 155.9 cm Tricuspid valve Value 02/08/2018 Reference Tricuspid regurg peak 3.4 m/sec 2.5 velocity Tricuspid peak RV-RA 47.5 mm Hg 25.1 gradient Right atrium Value 02/08/2018 Reference RA area, ES, A4C (H) 22.4 cm^2 16.6 8.3 - 19.5 Legend: (L) and (H) rosemary values outside specified reference range. I have personally reviewed the images and have reviewed and edited the reported findings. Electronically signed by Frederic Collazo 02/18/2019 14:08
[2019-02-18 12:44] LABS: Troponin I < 0.05 ng/mL (0.00-0.06)
[2019-02-18] MEDS: Enoxaparin 40 MG/0.4 ML SYR SC (14:21)
[2019-02-18] MEDS: Methadone 10 MG TAB PO (14:21)
[2019-02-18 16:01] LABS: Troponin I < 0.05 ng/mL (0.00-0.06)
--- NOTE | 2019-02-18 16:31 | NUR.NOTE ---
02/18/19 1329 Nursing Note: Pt admitted to room 229 via stretcher. Pt alert and oriented x 3. lascta. no SOB noted/ reported. Pt states has resolving diffuse chest pressure which he has had x approx 3 days, no new acute chest pain. No cough noted. positive bs x 4. dressing in place rle cdi, pt states had applied at [facility] which he has been going to for about 3 years. Pt signed release of information to obtain wound orders. Pt has scaring over his forearms. AICD implanted on l lateral/ posterior rib cage. positive pp ble. urine clear yellow
--- NOTE | 2019-02-18 16:46 | NUR.NOTE ---
Nursing Note: 02/18/19 4351 Spooke with Farida Navarrete at [facility] and requested wound orders. She agreed to fax thenm over for lle.
[2019-02-18] MEDS: Normal Saline Flush 10 ML SYR IVP ×2 (16:56→18:50)
[2019-02-18] MEDS: Furosemide 40 MG/4 ML VIAL 60 MG IVP (16:56)
--- NOTE | 2019-02-18 16:56 | W.PM.HP.N ---
Date of service: 02/18/19 Time of Service: 16:57 Assessment and Plan Assessment and plan (1) Acute CHF: Status: Acute Assessment and plan: Acute exacerbation of underlying chronic CHF, likely on the basis of medication non-compliance, which the patient has a history of. - Has already responded well to diuretic therapy. Continue IV Lasix this evening. - Monitor daily weight, strict I/O's, and maintain on a low sodium diet. - Consider increase in home Torsemide dose to 30mg at discharge, per ED Discussion with cardiology attending. - Continue DAVID-I, BB, ASA, and statin therapy. Also on Effient, and anti-arrhythmic therapy with Mexiletine. Please note that current ECHO with noted 2-3+ MR, which is not a new finding. Also with note of inability to exclude an apical thrombus by ECHO - please note that at time of patient's initial cardiac event, anticoagulation was considered secondary to a dense apical wall motion abnormality and potential for an apical clot, but he was deemed a poor candidate due to compliance issues. 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 (2) CAD (coronary artery disease): Status: Chronic Assessment and plan: - Troponin appears negative. Maintain on telemetry, and rule out with serial cardiac biomarkers. (3) COPD (chronic obstructive pulmonary disease): Status: Chronic Assessment and plan: Appears Quiescent. Duonebs prn. (4) Diabetes mellitus: Status: Chronic Assessment and plan: Appears diet controlled. HgA1C 6.1% 01/30/2019. Monitor. (5) DVT prophylaxis: Status: Acute Assessment and plan: SC Enoxaparin. Ensure GI Prophylaxis as well. History of Present Illness History of Present Illness Chief Complaint: Dyspnea Narrative: 58 year old man with a prior history of ICMP, being admitted from [facility] Emergency Department on 02/18 with a diagnosis of acute CHF Exacerbation. Mr. Zuluaga has a past Medical History significant for CAD with NSTEMI in 2011, s/p complicated stenting of an LAD lesion with reinfarction several days later likely due to an in-stent thrombosis. He developed a subsequent ICMP with an EF of 30%, further complicated by a pulseless VTach arrest in June of 2017, s/p AICD and maintained chronically on antiarrhythmic therapy. His other history includes moderate to severe COPD, PHTN, Diastolic CHF, MR, Chronic back and neck pain on opiate therapy, history of IVDA on Methadone, chronic LE ulcer with a prior history of Osteo, diet controlled DM, and PTSD. He also has prior hospitalizations for CHF exacerbations in the setting of medication non-compliance. The patient presented to the ED with reported dyspnea ongoing for approximately 10 days, acutely worsened over the last 2 days. He admits to missing a few of his diuretic doses. He denied any CP, palpitations, and reports no shocks during this time. Work-up was remarkable for a significantly elevated BNP, and CXR findings of CHF - although with official results pending at time of admission. ECHO shows an EF 25-30% with diffuse hypokinesis with regional wma's. Also with noted 2-3+ MR, and PHTN with PAPs in the 50's. He was referred for admission for further evaluation and treatment. Review of Systems Review of Systems ROS Unobtainable: All systems reviewed & are unremarkable except as noted in HPI and below PFSH Medical History Cardiac defibrillator in place (Acute) Cardiomyopathy (Chronic) Chronic anticoagulation (Chronic) Chronic back pain (Chronic) Chronic neck pain (Chronic) Chronic ulcer of right leg (Chronic) Cleft palate and cleft lip (Chronic) Congestive heart failure (Chronic) COPD (chronic obstructive pulmonary disease) (Chronic) Diabetes (Chronic) History of osteomyelitis (Inactive) Hx of myocardial infarction (Inactive) Hx pulmonary embolism (Inactive) Insomnia (Chronic) Mitral regurgitation (Chronic) Peripheral neuropathy (Chronic) PTSD (post-traumatic stress disorder) (Chronic) Sleep apnea (Chronic) Social History (Updated 02/18/19 @ 17:30 by Timbo Murphy MD) Smoking/Tobacco Use Status: Current-Occasional Tobacco Type: e-cigarettes Tobacco: How many years used: 20 Alcohol Intake: never Drug use: Current Sobriety Substance use type: does not use Do you feel safe at home: Yes Do you feel safe in your relationship?: Yes Additional Social history: Not and no children. 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 No current Tobacco or EtOH. Prior history of illicit drugs, IVDA with Heroin. Meds Home Medications and Allergies Home Medications Medication Instructions Recorded Confirmed Type aspirin [Aspir-81] 81 mg PO DAILY AM 10/16/12 02/18/19 History nitroglycerin [Nitrostat] 0.4 mg SUBLINGUAL DIRECTED PRN 10/16/12 02/18/19 History clonazepam 0.5 tab PO BID tab-cap 04/10/16 02/18/19 History dronabinol 5 mg PO BID PRN 06/02/16 02/18/19 History oxycodone 1 - 2 tab PO Q4H PRN PRN 06/02/16 02/18/19 History atorvastatin 40 mg PO HS #5 tab-cap 05/19/17 02/18/19 Rx lisinopril 5 mg PO DAILY #5 tab-cap 05/19/17 02/18/19 Rx prasugrel [Effient] 10 mg PO DAILY #5 tab 05/19/17 02/18/19 Rx torsemide [Demadex] 20 mg PO DAILY #30 tab 05/19/17 02/18/19 Rx Narcan 4 mg INTRANASAL PRN PRN 07/01/17 02/18/19 History Sildenafil Citrate [Sildenafil] 20 mg PO TID PRN 07/01/17 02/18/19 History gabapentin 600 mg tablet 1,200 mg PO BID tab 07/10/18 02/18/19 History methadone 10 mg tablet 10 mg PO DIRECTED tab 07/10/18 02/18/19 History metoprolol succinate 100 mg 25 mg PO DAILY 07/10/18 02/18/19 History tablet,extended release 24 hr ibuprofen 800 mg PO QID PRN #20 tab 08/07/18 02/18/19 Rx mexiletine 200 mg capsule 200 mg PO Q8H 09/11/18 02/18/19 History Allergies Allergy/AdvReac Type Severity Reaction Status Date / Time ticagrelor [From Brilinta] AdvReac Severe Unverified 10/22/18 12:45 fluoxetine HCl [From Prozac] AdvReac Intermediate FELT AWFUL Unverified 10/22/18 12:45 duloxetine AdvReac Mild DOESN'T Unverified 10/22/18 12:45 FEEL WELL Exam Narrative Exam Narrative: General: Patient appears comfortable, AAOX3, NAD Neck: Supple Skin: Left lateral chest wall AICD pocket noted. CV: Regular, nontachycardic, S1S2, No rubs, murmurs, or gallops. Pulmonary: Minimal bibasilar crackles, no crackles, wheezing, or rhonchi Abdomen: + Bowel Sounds, soft, nontender, nondistended, obese in contour Vascular: No lower extremity edema Neurologic: CN II-XII grossly intact. No focal deficits. Psych: Normal mood and affect. Results Labs Result diagrams: 02/18/19 09:30 02/18/19 09:30 Labs: Laboratory Results - last 24 hr 02/18/19 02/18/19 02/18/19 09:30 09:30 09:30 WBC 9.59 RBC 4.14 L Hgb 10.1 L Hct 33.7 L MCV 81.4 MCH 24.4 L MCHC 30.0 L RDW 17.0 H Plt Count 342 MPV 10.5 Immature Gran % 0.3 Neutrophils % 81.6 Lymphocytes % 7.5 Monocytes % 10.1 Eosinophils % 0.3 Basophils % 0.2 Absolute Neutrophils 7.82 H Absolute Lymphocytes 0.72 L Absolute Monocytes 0.97 H Absolute Eosinophils 0.03 Absolute Basophils 0.02 PT 12.0 H INR 1.2 H Sodium 138 Potassium 3.9 Chloride 102 Carbon Dioxide 27.0 Anion Gap 9.0 BUN 14 Creatinine 1.11 Estimated GFR/1.73 m2 >= 60.00 Glucose 167 H Calcium 8.3 L Magnesium 1.9 Total Bilirubin 1.3 H AST 28 ALT 23 Alkaline Phosphatase 108 Troponin I 0.05 NT-Pro-B Natriuret Pep 85271 H Total Protein 8.2 Albumin 3.0 L Urine Color Urine Clarity Urine pH Ur Specific [place] Urine Protein Urine Ketones Urine Blood Urine Nitrite Urine Bilirubin Urine Urobilinogen Ur Leukocyte Esterase Urine Glucose 02/18/19 02/18/19 02/18/19 09:39 12:26 15:20 WBC RBC Hgb Hct MCV MCH MCHC RDW Plt Count MPV Immature Gran % Neutrophils % Lymphocytes % Monocytes % Eosinophils % Basophils % Absolute Neutrophils Absolute Lymphocytes Absolute Monocytes Absolute Eosinophils Absolute Basophils PT INR Sodium Potassium Chloride Carbon Dioxide Anion Gap BUN Creatinine Estimated GFR/1.73 m2 Glucose Calcium Magnesium Total Bilirubin AST ALT Alkaline Phosphatase Troponin I < 0.05 < 0.05 NT-Pro-B Natriuret Pep Total Protein Albumin Urine Color Yellow Urine Clarity Clear Urine pH 6.0 Ur Specific [place] 1.010 Urine Protein Negative Urine Ketones Negative Urine Blood Negative Urine Nitrite Negative Urine Bilirubin Negative Urine Urobilinogen 0.2 Ur Leukocyte Esterase Negative Urine Glucose Negative Last Vital Signs Temp 37.1 C 02/18/19 15:10 Pulse 64 02/18/19 15:10 Resp 18 02/18/19 15:10 BP 111/67 02/18/19 15:10 Pulse Ox 94 L 02/18/19 15:10
[2019-02-18] MEDS: Pantoprazole 40 MG VIAL IVP (18:50)
[2019-02-18] MEDS: Gabapentin 600 MG TAB 1200 MG PO (19:35)
[2019-02-18] MEDS: clonazePAM 0.5 MG TAB PO (19:36)
[2019-02-18] MEDS: Atorvastatin 40 MG TAB PO (19:36)
--- NOTE | 2019-02-18 19:59 | NUR.NOTE ---
Nursing Note: [facility] wound clinic was contacted reference the wound on patients rle. This was classified by the provider there as a stasis ulcer. Reviewed provider orders, they are to cleanse the wound with NS and pat dry. Apply promagen to the wound, cover this with optiloc , then secure the dressing with coban. I approached the patient and received the permission to look at the wound. As the old dressing was removed, the dressing had a moderate amount of trevino exudate on it. This was noted to be two wounds a smaller wound superior to the larger wound by an area of intact rosalie wound skin. the smaller wound measures 1.4x 2.2x0.1, the base of the wound was palepink color with a small amount of trevino exudate in the base. The larger wound measures 6.6 x3.4x0.1, with a light pink base and an area of epibole noted between 1-4 o'clock. rosalie wound skin is of normal color. Previous dressing order was performed with the area cleansed with NS, promagen was applied to the base of the wound. Then this was covered with an optilc dressing and secured with coban, patient did not experience pain with this dressing change. he was left hit his call coleman in reach when we were done
[2019-02-18 20:10] LABS: Troponin I < 0.05 ng/mL (0.00-0.06)
[2019-02-18] MEDS: Methadone 10 MG TAB 20 MG PO (22:00)
[2019-02-19] VITALS (9 sets, daily range): BP systolic 100–117; BP diastolic 57–70; PULSE 58–83; RESP 18–19; TEMP 36.4–36.8; O2SAT 96–98
[2019-02-19 07:27] LABS: Abs Immature Grans 0.01 k/cumm (0.0-0.09); Absolute Basophil Count 0.03 k/cumm (0.0-0.2); Absolute Eosinophil Count 0.25 k/cumm (0.0-0.7); Absolute Lymphocyte Count 1.49 k/cumm (1.2-3.4); Absolute Monocyte Count 0.95 k/cumm (0.11-0.7); Absolute Neutrophil Count 4.13 k/cumm (1.2-6.7); Basophils % 0.4; Eosinophils % 3.6; HGB 10.3 g/dL (13.5-17.5); Immature Grans % 0.1; Lymphocytes % 21.7; Mean Corp. HGB Concentration 30.3 g/dL (32.0-36.0); Mean Corpuscular Hemoglobin 24.2 pg (27.0-33.0); Mean Platelet Volume 10.5 fL (8.0-11.0); Monocytes % 13.8; Neutrophils % 60.4; Platelet Count 334 x1000/uL (130-400); RBC 4.25 m/cumm (4.50-6.00); RBC Distribution Width 16.8 % (11.8-14.1); White Blood Cell Count 6.86 k/cumm (4.4-10.8)
[2019-02-19 07:41] LABS: Anion Gap 8.9 mmol/L (3-11); BUN 17 mg/dL (7-18); CO2 31.1 mmol/L (21.0-32.0); CREATININE 1.16 mg/dL (0.70-1.30); Calcium 8.1 mg/dL (8.5-10.1); Chloride 102 mmol/L (98-107); Glucose 78 mg/dL (70-100); NT-proBNP 3999 pg/mL; Potassium 3.1 mmol/L (3.5-5.1); Sodium 142 mmol/L (136-145)
[2019-02-19 07:43] LABS: Troponin I < 0.05 ng/mL (0.00-0.06)
[2019-02-19] MEDS: Furosemide 40 MG/4 ML VIAL 60 MG IVP ×2 (08:29→16:17)
[2019-02-19] MEDS: Normal Saline Flush 10 ML SYR IVP ×3 (08:30→17:52)
[2019-02-19] MEDS: oxyCODONE 10 MG TAB PO (08:30)
[2019-02-19] MEDS: Lisinopril 5 MG TAB PO (08:30)
[2019-02-19] MEDS: Methadone 10 MG TAB 30 MG PO (08:31)
[2019-02-19] MEDS: clonazePAM 0.5 MG TAB PO ×2 (08:31→20:29)
[2019-02-19] MEDS: Gabapentin 600 MG TAB 1200 MG PO ×2 (08:31→20:29)
[2019-02-19] MEDS: Metoprolol CR 25 MG TABCR PO (08:31)
[2019-02-19] MEDS: Aspirin E.C. 81 MG TABEC PO (08:32)
[2019-02-19] MEDS: Potassium Chloride 20 MEQ TABCR 40 MEQ PO ×2 (12:55→17:51)
[2019-02-19] MEDS: Enoxaparin 40 MG/0.4 ML SYR SC (13:09)
[2019-02-19] MEDS: Methadone 10 MG TAB PO (13:10)
--- NOTE | 2019-02-19 13:57 | CHAPLAIN ---
Kareem was resting in bed when I visited. He quickly engaged in a conversation telling me about arriving at the hospital with respiratory issues and his concern that they would lead to cardiac issues. Kareem said he has had cardiac emergencies before and was once for 11 minutes. He added that he tends to try to handle things on my own but know believes he has learned the warning signs that should motivate him to come to the hospital earlier, before he has more difficulty with respiratory and cardiac issues. Kareem considers himself spiritual but not religions and talked about his relationship with God. He doesn't feel the need to belong to a britni community, and seemed very certain and confident in his believes. 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
--- NOTE | 2019-02-19 14:00 | PDOC.CMIN ---
Care Management Initial Assess REASON FOR HOSPITALIZATION:: CHF Exacerbation PAST MEDICAL HISTORY/PAST SURGICAL HISTORY:: cardiac defibrillator, cardiomyopathy, chronic anticoagulation, chronic back pain, neck pain, ulcer of right leg, cleft palate and cleft lip, CHF, COPD, diabetes, osteomyelitis, hx of MA, hx of PE, Insomnia, mitral regurgitation, peripheral neuropathy, PTSD, Sleep apnea PREVIOUS FUNCTIONAL STATUS/SOCIAL/FAMILY SUPPORTS:: Kareem resides in [place] with his significant other, Mayra and their dog. 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 He is independent in the community at this time. CURRENT FUNCTIONAL STATUS:: Kareem was lying on his bed on his phone when CM met with him. He shared no needs at this time and held up his phone, reporting he was paying his taxes at the moment. CM will continue to follow. ADVANCE DIRECTIVES:: None on file at [facility], document offered to patient. Has patient been provided with information about the portal?: Yes Did the patient sign up for the portal?: No CODE STATUS:: Full Code INSURANCE COVERAGE / FINANCIAL ISSUES:: Medicare. Medicaid CURRENT HOME/COMMUNITY SERVICES/EQUIPMENT:: Kareem reports no current services or equipment at this time. PRIMARY CARE PHYSICIAN:: Farida Hall M.D. POTENTIAL DISCHARGE NEEDS:: Follow up appointment with PCP. PATIENT/FAMILY EDUCATION NEEDS:: Review discharge instructions, discuss Ask Me Three. ANTICIPATED BARRIERS TO DISCHARGE:: None identified. TRANSPORTATION:: Kareem will transport via private vehicle or RCT. PLAN:: Kareem will return home when ready per MD. He will follow up with his PCP and plan of care and may have an outpatient follow up plan as well. Kareem will transport home via private vehicle with his significant other or RCT.
[2019-02-19 16:09] LABS: Troponin I < 0.05 ng/mL (0.00-0.06)
[2019-02-19] MEDS: Pantoprazole 40 MG VIAL IVP (17:52)
--- NOTE | 2019-02-19 18:23 | PGE_ITS ---
Date of Service Date of service: 02/19/19 Time of Service: 18:23 Assessment and Plan Assessment and plan (1) Acute CHF: Status: Acute Assessment and plan: Acute exacerbation of underlying chronic CHF, likely on the basis of medication non-compliance, as well as being unaware of fluid and sodium restrictions. - Has already responded well to diuretic therapy. Continue IV Lasix this evening and change to home regimen in the morning. - Monitor daily weight, strict I/O's, and maintain on a low sodium diet. CHF education. - Will resume home torsemide dosing at discharge, and advise fluid restriction and decrease in sodium intake. - Continue DAVID-I, BB, ASA, and statin therapy. Also on Effient, and anti- arrhythmic therapy with Mexiletine. Please note that current ECHO with noted 2-3+ MR, which is not a new finding. Also with note of inability to exclude an apical thrombus by ECHO - at time of patient's initial cardiac event, anticoagulation was considered secondary to a dense apical wall motion abnormality and potential for an apical clot, but he was deemed a poor candidate due to compliance issues. Reached counter intelligence today with recommendations for a Contrast ECHO vs. KARTHIKEYAN in the future, and to hold off on any active anticoagulation at this time. (2) CAD (coronary artery disease): Status: Chronic Assessment and plan: - Troponin appears negative. Maintain on telemetry, and rule out with serial cardiac biomarkers. (3) COPD (chronic obstructive pulmonary disease): Status: Chronic Assessment and plan: Appears Quiescent. Duonebs prn. (4) Diabetes mellitus: Status: Chronic Assessment and plan: Appears diet controlled. HgA1C 6.1% 01/30/2019. Monitor. (5) DVT prophylaxis: Status: Acute Assessment and plan: SC Enoxaparin. Ensure GI Prophylaxis as well. Subjective Subjective Interval history since last seen: 58 year old man with a prior history of ICMP, being admitted from [facility] Emergency Department on 02/18 with a diagnosis of acute CHF Exacerbation. Mr. Zuluaga has a past Medical History significant for CAD with NSTEMI in 2011, s/p complicated stenting of an LAD lesion with reinfarction several days later likely due to an in-stent thrombosis. He developed a subsequent ICMP with an EF of 30%, further complicated by a pulseless VTach arrest in June of 2017, s/p AICD and maintained chronically on antiarrhythmic therapy. His other history includes moderate to severe COPD, PHTN, Diastolic CHF, MR, Chronic back and neck pain on opiate therapy, history of IVDA on Methadone, chronic LE ulcer with a prior history of Osteo, diet controlled DM, and PTSD. He also has prior hospitalizations for CHF exacerbations in the setting of medication non- compliance. The patient presented to the ED with reported dyspnea ongoing for approximately 10 days, acutely worsened over the last 2 days. He admits to missing a few of his diuretic doses. He denied any CP, palpitations, and reports no shocks during this time. Work-up was remarkable for a significantly elevated BNP, and CXR findings of CHF - although with official results pending at time of admission. ECHO shows an EF 25-30% with diffuse hypokinesis with regional wma's. Also with noted 2-3+ MR, and PHTN with PAPs in the 50's. He was referred for admission for further evaluation and treatment. This morning Mr. Zuluaga feels vastly improved, and has no complaints. He has diuresed approximately 3.4 L since admission. No overnight events reported. Remains afebrile. Exam Narrative Exam Narrative: General: Patient appears comfortable, AAOX3, NAD Neck: Supple Skin: Left lateral chest wall AICD pocket noted. CV: Regular, nontachycardic, S1S2, No rubs, murmurs, or gallops. Pulmonary: Minimal bibasilar crackles appear resolved, no wheezing or rhonchi Abdomen: + Bowel Sounds, soft, nontender, nondistended, obese in contour Vascular: No lower extremity edema Psych: Normal mood and affect. Objective Objective Clinical Data: Abnormal lab results 02/19/19 02/19/19 Range/Units 07:03 07:03 RBC 4.25 L (4.50-6.00) m/cumm Hgb 10.3 L (13.5-17.5) g/dL Hct 34.0 L (40.0-50.0) % MCH 24.2 L (27.0-33.0) pg MCHC 30.3 L (32.0-36.0) g/dL RDW 16.8 H (11.8-14.1) % Absolute Monocytes 0.95 H (0.11-0.7) k/cumm Potassium 3.1 L (3.5-5.1) mmol/L Calcium 8.1 L (8.5-10.1) mg/dL NT-Pro-B Natriuret Pep 3999 H ( - 299) pg/mL Vital Signs Temperature 36.4 C L 02/19/19 11:15 Temperature Source Tympanic 02/19/19 11:15 Pulse 68 02/19/19 17:32 Pulse Rhythm Regular 02/19/19 17:34 Pulse 66 02/18/19 12:10 Respiratory Rate 18 02/19/19 13:07 Respiratory Effort 02/19/19 17:34 Respiratory Depth Normal 02/19/19 17:34 Respiratory Pattern Normal 02/19/19 17:34 Blood Pressure 100/70 02/19/19 17:32 Blood Pressure Mean 78 02/18/19 12:00 Blood Pressure Position Supine 02/18/19 09:15 Pulse Oximetry 96 02/19/19 13:07 Oxygen Delivery Method Room Air 02/19/19 17:32 Oxygen Flow Rate 0 02/19/19 17:32 Pain Level 7 02/19/19 17:32 Comment 02/18/19 15:10 Intake & Output 02/18/19 02/19/19 02/19/19 23:59 11:59 23:59 Intake Total 720 / 720 880 / 1480 600 / 1480 Output Total 1880 / 2480 1620 / 3220 1600 / 3220 Balance -1160 / -1760 -740 / -1740 -1000 / -1740 Weight 115 kg 113.5 kg Intake: Oral 720 / 720 880 / 1480 600 / 1480 Output: Urine 1880 / 2480 1620 / 3220 1600 / 3220 Other: Urine Color Straw Yellow Yellow Urine Appearance Clear Clear Clear Urine Odor Normal Normal Normal Voiding Methods Urinal Urinal Urinal Laboratory Results WBC 6.86 k/cumm (4.4-10.8) 02/19/19 07:03 RBC 4.25 m/cumm (4.50-6.00) L 02/19/19 07:03 Hgb 10.3 g/dL (13.5-17.5) L 02/19/19 07:03 Hct 34.0 % (40.0-50.0) L 02/19/19 07:03 MCV 80.0 fL (80-95) 02/19/19 07:03 MCH 24.2 pg (27.0-33.0) L 02/19/19 07:03 MCHC 30.3 g/dL (32.0-36.0) L 02/19/19 07:03 RDW 16.8 % (11.8-14.1) H 02/19/19 07:03 Plt Count 334 x1000/uL (130-400) 02/19/19 07:03 MPV 10.5 fL (8.0-11.0) 02/19/19 07:03 Immature Gran % 0.1 02/19/19 07:03 Neutrophils % 60.4 02/19/19 07:03 Lymphocytes % 21.7 02/19/19 07:03 Monocytes % 13.8 02/19/19 07:03 Eosinophils % 3.6 02/19/19 07:03 Basophils % 0.4 02/19/19 07:03 Absolute Neutrophils 4.13 k/cumm (1.2-6.7) 02/19/19 07:03 Absolute Lymphocytes 1.49 k/cumm (1.2-3.4) 02/19/19 07:03 Absolute Monocytes 0.95 k/cumm (0.11-0.7) H 02/19/19 07:03 Absolute Eosinophils 0.25 k/cumm (0.0-0.7) 02/19/19 07:03 Absolute Basophils 0.03 k/cumm (0.0-0.2) 02/19/19 07:03 PT 12.0 sec (9.3-11.0) H 02/18/19 09:30 INR 1.2 (0.9-1.1) H 02/18/19 09:30 Sodium 142 mmol/L (136-145) 02/19/19 07:03 Potassium 3.1 mmol/L (3.5-5.1) L 02/19/19 07:03 Chloride 102 mmol/L (98-107) 02/19/19 07:03 Carbon Dioxide 31.1 mmol/L (21.0-32.0) 02/19/19 07:03 Anion Gap 8.9 mmol/L (3-11) 02/19/19 07:03 BUN 17 mg/dL (7-18) 02/19/19 07:03 Creatinine 1.16 mg/dL (0.70-1.30) 02/19/19 07:03 Estimated GFR/1.73 m2 >= 60.00 (mL/min/1.73m2) 02/19/19 07:03 Glucose 78 mg/dL (70-100) D 02/19/19 07:03 Calcium 8.1 mg/dL (8.5-10.1) L 02/19/19 07:03 Magnesium 2.0 mg/dL (1.8-2.4) 02/19/19 07:03 Total Bilirubin 1.3 mg/dL (0.2-1.0) H 02/18/19 09:30 AST 28 U/L (15-37) 02/18/19 09:30 ALT 23 U/L (16-63) 02/18/19 09:30 Alkaline Phosphatase 108 U/L (46-116) 02/18/19 09:30 Troponin I < 0.05 ng/mL (0.00-0.06) 02/19/19 13:42 NT-Pro-B Natriuret Pep 3999 pg/mL (-299) H 02/19/19 07:03 Total Protein 8.2 g/dL (6.4-8.2) 02/18/19 09:30 Albumin 3.0 g/dL (3.4-5.0) L 02/18/19 09:30 Urine Color Yellow (Yellow) 02/18/19 09:39 Urine Clarity Clear (Clear) 02/18/19 09:39 Urine pH 6.0 (5-8) 02/18/19 09:39 Ur Specific [place] 1.010 (1.005-1.025) 02/18/19 09:39 Urine Protein Negative mg/dL (Negative) 02/18/19 09:39 Urine Ketones Negative mg/dL (Negative) 02/18/19 09:39 Urine Blood Negative (Negative) 02/18/19 09:39 Urine Nitrite Negative (Negative) 02/18/19 09:39 Urine Bilirubin Negative (Negative) 02/18/19 09:39 Urine Urobilinogen 0.2 EU/dL (Up TO 0.2) 02/18/19 09:39 Ur Leukocyte Esterase Negative (Negative) 02/18/19 09:39 Urine Glucose Negative mg/dL (Negative) 02/18/19 09:39
[2019-02-19] MEDS: Atorvastatin 40 MG TAB PO (20:29)
[2019-02-19 20:49] LABS: Troponin I < 0.05 ng/mL (0.00-0.06)
[2019-02-19] MEDS: Methadone 10 MG TAB 20 MG PO (21:46)
--- NOTE | 2019-02-19 23:19 | NUR.NOTE ---
Nursing Note: 3P to 3A shift: Beginning of the shift, pt. reported of not feeling well, shaky and restless while on bed. He stated that it started since 1:30 pm. B/P checked was 84/47 then manually checked was 100/70. FS taken was 89 during dinner time.Closely monitored, friend at bedside and suddenly questioning pantoprazole scheduled, arguing with policy writer that it should be given on abdomen. Explained and records checked by major gifts manager that made pt aware that it was lovenox given at 1400 hrs. in abdomen then asked more about meds actions and indications provided, calmed down after. Pt been voiding in large amount after lasix administered. Coban wraps on right leg is inplaced and clean and dry. Had crackers at bedtime and no further voiced complaints.
[2019-02-20 03:45] VITALS: BP 99/63; PULSE 64; RESP 16; TEMP 36.8; O2SAT 95
[2019-02-20 07:26] VITALS: PULSE 69
[2019-02-20 07:35] VITALS: BP 110/71; PULSE 65; RESP 18; TEMP 36.4; O2SAT 96
[2019-02-20 07:38] LABS: Abs Immature Grans 0.02 k/cumm (0.0-0.09); Absolute Basophil Count 0.04 k/cumm (0.0-0.2); Absolute Eosinophil Count 0.27 k/cumm (0.0-0.7); Absolute Lymphocyte Count 1.43 k/cumm (1.2-3.4); Absolute Monocyte Count 0.86 k/cumm (0.11-0.7); Absolute Neutrophil Count 3.86 k/cumm (1.2-6.7); Basophils % 0.6; Eosinophils % 4.2; HCT 34.7 % (40.0-50.0); HGB 10.6 g/dL (13.5-17.5); Immature Grans % 0.3; Lymphocytes % 22.1; Mean Corp. HGB Concentration 30.5 g/dL (32.0-36.0); Mean Corpuscular Hemoglobin 24.4 pg (27.0-33.0); Mean Corpuscular Volume 79.8 fL (80-95); Mean Platelet Volume 10.3 fL (8.0-11.0); Monocytes % 13.3; Neutrophils % 59.5; Platelet Count 365 x1000/uL (130-400); RBC 4.35 m/cumm (4.50-6.00); RBC Distribution Width 16.7 % (11.8-14.1); White Blood Cell Count 6.48 k/cumm (4.4-10.8)
[2019-02-20 08:04] LABS: Anion Gap 6.9 mmol/L (3-11); BUN 20 mg/dL (7-18); CO2 31.1 mmol/L (21.0-32.0); CREATININE 1.12 mg/dL (0.70-1.30); Calcium 8.2 mg/dL (8.5-10.1); Chloride 102 mmol/L (98-107); Glucose 135 mg/dL (70-100); Magnesium 1.9 mg/dL (1.8-2.4); NT-proBNP 960 pg/mL; Potassium 3.8 mmol/L (3.5-5.1); Sodium 140 mmol/L (136-145)
[2019-02-20 08:05] LABS: Troponin I < 0.05 ng/mL (0.00-0.06)
--- NOTE | 2019-02-20 08:15 | PHARADMIT ---
Admission Pharmacy Clinical Review CHF EXACERBATION Code Status Full Code Current Weight Wgt-112.6 kg Renally Cleared and Narrow Therapeutic Index Meds CrCl~ 84 mL/min Meds-OK QTc Value / Action Taken QTc-434 NA BP Control, Fever BP- 110/71 Tmax-36.6C Electrolytes reviewed Na-140 K+3.8 Mag-1.9 DVT Prophylaxis Lovenox Opiate Usage / Scheduled Bowel Regimen Ordered Yes Yes Plt/SCr for Heparin / Enoxaparin Plts- 365 SCr-1.12 INR for Warfarin INR-1.2 H/H stable, WBC/Bands H&H-10.6/34.7 WBC- 6.48 Antibiotic appropriateness none Cultures and Sensitivities none Surgical ABX d/c within 24 hr NA DM control / Insulin Dosing BG-135 Heart Failure (Check EF%) (DAVID's, B-Block, Diuretics) Toprol-XK, Lisinopril, NTG, Torsemide, IV to PO Switch No Home Meds Reviewed Yes Home Meds Not Ordered Viagara, Comments
[2019-02-20] MEDS: Methadone 10 MG TAB 30 MG PO (08:16)
[2019-02-20] MEDS: Lisinopril 5 MG TAB PO (08:16)
[2019-02-20] MEDS: Torsemide 20 MG TAB PO (08:17)
[2019-02-20] MEDS: Metoprolol CR 25 MG TABCR PO (08:17)
[2019-02-20] MEDS: Aspirin E.C. 81 MG TABEC PO (08:17)
[2019-02-20] MEDS: clonazePAM 0.5 MG TAB PO (08:17)
[2019-02-20] MEDS: Gabapentin 600 MG TAB 1200 MG PO (08:59)
[2019-02-20] MEDS: Magnesium Oxide 400 MG TAB PO (10:38)
[2019-02-20] MEDS: Potassium Chloride 20 MEQ TABCR PO (10:39)
--- NOTE | 2019-02-20 11:08 | W.PM.DS.N ---
Date of service: 02/20/19 Time of Service: 11:08 DS: Diagnosis Discharge Diagnosis (1) Acute CHF: Status: Acute (2) CAD (coronary artery disease): Status: Chronic (3) COPD (chronic obstructive pulmonary disease): Status: Chronic (4) Diabetes mellitus: Status: Chronic Discharge Plan Disposition Patient Disposition: HOME Condition: Stable Discharge Details Chief Complaint: SOB Clinical Impression: Congestive heart failure (CHF) Reason For Visit: CHF EXACERBATION Admit Date/Time: 02/18/19 11:30 Admit Provider: Timbo Murphy Attending Provider: Timbo Murphy Primary Care Provider: Farida Hall V ED Provider: Manan Payton Hospital Course Hospital Course: Chief Complaint: Dyspnea HPI: 58 year old man with a prior history of ICMP, admitted from [facility] Emergency Department on 02/18 with a diagnosis of acute CHF Exacerbation. Mr. Zuluaga has a past Medical History significant for CAD with NSTEMI in 2011, s/p complicated stenting of an LAD lesion with reinfarction several days later likely due to an in-stent thrombosis. He developed a subsequent ICMP with an EF of 30%, further complicated by a pulseless VTach arrest in June of 2017, s/p AICD and maintained chronically on antiarrhythmic therapy. His other history includes moderate to severe COPD, PHTN, MR, Chronic back and neck pain on opiate therapy, history of IVDA on Methadone, chronic LE ulcer with a prior history of Osteo, diet controlled DM, and PTSD. He also has prior hospitalizations for CHF exacerbations in the setting of medication non-compliance. The patient presented to the ED with reported dyspnea ongoing for approximately 10 days, acutely worsened over the prior 2 days. He admits to missing a few of his diuretic doses. Upon specific questioning he also reports being unaware of fluid and sodium restriction, stating that he generally drinks copiously throughout the day, and is not always cognizant of his salt intake. He denied any CP, palpitations, and reported no shocks during this time. Work-up was remarkable for a significantly elevated BNP, and CXR findings of CHF. ECHO showed an EF 25-30% with diffuse hypokinesis with regional wma's. Also with noted 2-3+ MR, and PHTN with PAPs in the 50's. He was referred for admission for further evaluation and treatment. This morning Mr. Zuluaga feels vastly improved, and has no complaints. He has diuresed approximately 3.8 L since admission, with a concurrent 3.4 Kg loss in weight. No overnight events reported. Remains afebrile. Hospital Course: (1) Acute CHF: Acute exacerbation of underlying chronic CHF, likely on the basis of medication non-compliance, as well as being unaware of fluid and sodium restrictions. - Has already responded well to diuretic therapy. BNP has improved from over 10,000 to 960 this morning. - Will resume home torsemide dosing at discharge, and advise fluid restriction and decrease in sodium intake. - Continue DAVID-I, BB, ASA, and statin therapy. Also on Effient, and anti-arrhythmic therapy with Mexiletine. - Advised daily weights and close monitoring of symptoms at home. Please note that current ECHO with noted 2-3+ MR, which is not a new finding. Also with note of inability to exclude an apical thrombus by ECHO - at time of patient's initial cardiac event, anticoagulation was considered secondary to a dense apical wall motion abnormality and potential for an apical clot, but he was deemed a poor candidate due to compliance issues. Reached senior research project manager previously, with recommendations for a Contrast ECHO vs. KARTHIKEYAN in the future, and to hold off on any active anticoagulation at this time. Will attempt to arrange for a Contrast Echo as outpatient. (2) CAD (coronary artery disease): Troponin appears negative, ECG non-ischemic, and telemetry without significantly abnormalities.. (3) COPD (chronic obstructive pulmonary disease): Appears Quiescent. (4) Diabetes mellitus: Appears diet controlled. HgA1C 6.1% 01/30/2019. Monitor. (5) DVT prophylaxis: Was maintained on SC Enoxaparin and PPI for GI prophylaxis. Home Meds and New Rx's Prescriptions: Continued mexiletine 200 mg capsule 200 mg PO Q8H RF: 0 clonazepam 1 MG tablet,disintegrating 0.5 tab PO BID RF: 0 gabapentin 600 mg tablet 1,200 mg PO BID RF: 0 methadone [Dolophine] 10 mg tablet 10 mg PO DIRECTED RF: 0 metoprolol succinate [Toprol XL] 100 mg tablet extended release 24 hr 25 mg PO DAILY RF: 0 aspirin [Aspir-81] 81 MG tablet,delayed release (DR/EC) 81 mg PO DAILY AM RF: 0 nitroglycerin [Nitrostat] 0.4 MG tablet, sublingual 0.4 mg Sublingual DIRECTED PRNRF: 0 oxycodone 20 MG tablet 1 - 2 tab PO Q4H PRN PRNRF: 0 dronabinol 5 MG capsule 5 mg PO BID PRNRF: 0 Narcan 4 MG spray,non-aerosol 4 mg Intranasal PRN PRNRF: 0 Sildenafil Citrate [Sildenafil] 20 MG tablet 20 mg PO TID PRNRF: 0 torsemide [Demadex] 20 MG tablet 20 mg PO DAILY Qty: 30 RF: 0 atorvastatin 40 MG tablet 40 mg PO HS Qty: 5 RF: 0 lisinopril 5 MG tablet 5 mg PO DAILY Qty: 5 RF: 0 prasugrel [Effient] 10 MG tablet 10 mg PO DAILY Qty: 5 RF: 0 ibuprofen 800 mg tablet 800 mg PO QID PRN (Reason: pain) Qty: 20 RF: 0 Discharge Instructions Instructions: Heart Failure (DC), Heart Failure (GEN) Additional Instructions: Please see your Primary Provider within 1 week of discharge. We are attempting to obtain a follow-up for you with your senior research project manager Dr. Owens at [facility]. Activity:: No Strenuous Activity Equipment/Supplies:: No Equipment Needed Diet:: Low sodium, 2L fluid restriction, ADA diet. Discharge Orders Discharge Orders: Discharge Order (Routine); Ordered 02/20/19 Ordered By: Timbo Murphy Other Ambulatory Orders: Basic Metabolic Panel (Routine) Location: None Selected Ordered By: Timbo Murphy echocardiogram (Routine) Timeframe: 2 Weeks Location: None Selected Ordered By: Timbo Murphy DS: Summary Status at Discharge Functional status at discharge: independent ambulation Overall status at discharge: patient is back to baseline Mental Status: mental status grossly normal Speech and Movement: speech and movement normal Mood: congruent mood Affect: normal affect Exam Narrative Exam Narrative: General: Patient appears comfortable, AAOX3, NAD Neck: Supple Skin: Left lateral chest wall AICD pocket noted. CV: Regular, nontachycardic, S1S2, No rubs, murmurs, or gallops. Pulmonary: Minimal bibasilar crackles appear resolved, no wheezing or rhonchi Abdomen: + Bowel Sounds, soft, nontender, nondistended, obese in contour Vascular: No lower extremity edema Psych: Normal mood and affect. Psych Mental Status: mental status grossly normal Speech and Movement: speech and movement normal Mood: congruent mood Affect: normal affect DS: Data Vitals/I&O Vitals and I&O: Vital Signs Temperature 36.4 C L 02/20/19 07:35 Temperature Source Tympanic 02/20/19 07:35 Pulse 65 02/20/19 07:35 Pulse Rhythm Regular 02/20/19 08:10 Pulse 66 02/18/19 12:10 Respiratory Rate 18 02/20/19 07:35 Respiratory Effort Non-Labored 02/20/19 08:10 Respiratory Depth Normal 02/20/19 08:10 Respiratory Pattern Normal 02/20/19 08:10 Blood Pressure 110/71 02/20/19 07:35 Blood Pressure Mean 78 02/18/19 12:00 Blood Pressure Position Supine 02/18/19 09:15 Pulse Oximetry 96 02/20/19 07:35 Oxygen Delivery Method Room Air 02/20/19 07:35 Oxygen Flow Rate 0 02/20/19 07:35 Pain Level 6 02/20/19 08:16 Comment 02/20/19 03:45 Intake & Output 02/19/19 02/19/19 02/20/19 11:59 23:59 11:59 Intake Total 880 / 1480 600 / 1480 360 / 360 Output Total 1620 / 3220 1600 / 3220 700 / 700 Balance -740 / -1740 -1000 / -1740 -340 / -340 Weight 113.5 kg 112.6 kg Intake: Oral 880 / 1480 600 / 1480 360 / 360 Output: Urine 1620 / 3220 1600 / 3220 700 / 700 Other: Urine Color Yellow Yellow Straw Urine Appearance Clear Clear Clear Urine Odor Normal Normal Normal Voiding Methods Urinal Urinal Urinal Data Completed and Pending Completed studies during hospitalization [Text1]: Exam(s) a RAD:XR chest 2V PA & lateral EXAM: XR CHEST 2V PA LATERAL CLINICAL HISTORY: Short of breath, history of ischemic cardiomyopathy. TECHNIQUE: 2D digital imaging was performed. COMPARISON: Comparison is made with 06/10/18. FINDINGS: There is interval development of areas of increased density in both lungs. There is a small right pleural effusion. Heart is not enlarged. There is stable calcified granuloma in the left lung. IMPRESSION: The findings are consistent with congestive failure. The possibility of a superimposed pneumonitis could not be excluded. --------- Exam(s) a US:US echocardiogram Date of study: 02/18/2019 Transthoracic Echocardiography M-mode, complete 2D, complete spectral Doppler, and color Doppler *STUDY CONCLUSIONS* Summary: 1. Left ventricle: The cavity size was severely dilated. Wall thickness was normal. Systolic function was severely reduced. The estimated ejection fraction was 25-30%. Diffuse hypokinesis with regional variations. Akinesis of the apical myocardium and adjacent apical winston. Dyskinesis of the septal myocardium. Cannot exclude apical thrombus. 2. Mitral valve: There was moderate to severe regurgitation. 3. Right ventricle: The cavity size was dilated. Wall thickness was normal. Systolic function was normal. 4. Pulmonary arteries: Pulmonary systolic pressure was increased, in the range of 45mm Hg to 55mm Hg. Labs on day of discharge: Labs from last 24 hours 02/20/19 02/20/19 02/19/19 07:20 07:02 20:20 WBC 6.48 RBC 4.35 L Hgb 10.6 L Hct 34.7 L MCV 79.8 L MCH 24.4 L MCHC 30.5 L RDW 16.7 H Plt Count 365 MPV 10.3 Immature Gran % 0.3 Neutrophils % 59.5 Lymphocytes % 22.1 Monocytes % 13.3 Eosinophils % 4.2 Basophils % 0.6 Absolute Neutrophils 3.86 Absolute Lymphocytes 1.43 Absolute Monocytes 0.86 H Absolute Eosinophils 0.27 Absolute Basophils 0.04 Sodium 140 Potassium 3.8 D Chloride 102 Carbon Dioxide 31.1 Anion Gap 6.9 BUN 20 H Creatinine 1.12 Estimated GFR/1.73 m2 >= 60.00 Glucose 135 H Calcium 8.2 L Magnesium 1.9 Troponin I < 0.05 < 0.05 NT-Pro-B Natriuret Pep 960 H 02/19/19 13:42 WBC RBC Hgb Hct MCV MCH MCHC RDW Plt Count MPV Immature Gran % Neutrophils % Lymphocytes % Monocytes % Eosinophils % Basophils % Absolute Neutrophils Absolute Lymphocytes Absolute Monocytes Absolute Eosinophils Absolute Basophils Sodium Potassium Chloride Carbon Dioxide Anion Gap BUN Creatinine Estimated GFR/1.73 m2 Glucose Calcium Magnesium Troponin I < 0.05 NT-Pro-B Natriuret Pep [facility] Medical History Cardiac defibrillator in place (Acute) Cardiomyopathy (Chronic) Chronic anticoagulation (Chronic) Chronic back pain (Chronic) Chronic neck pain (Chronic) Chronic ulcer of right leg (Chronic) Cleft palate and cleft lip (Chronic) Congestive heart failure (Chronic) COPD (chronic obstructive pulmonary disease) (Chronic) Diabetes (Chronic) History of osteomyelitis (Inactive) Hx of myocardial infarction (Inactive) Hx pulmonary embolism (Inactive) Insomnia (Chronic) Mitral regurgitation (Chronic) Peripheral neuropathy (Chronic) PTSD (post-traumatic stress disorder) (Chronic) Sleep apnea (Chronic) Social History Smoking/Tobacco Use Status: Current-Occasional Tobacco Type: e-cigarettes Tobacco: How many years used: 20 Alcohol Intake: never Drug use: Current Sobriety Substance use type: does not use Do you feel safe at home: Yes Do you feel safe in your relationship?: Yes Additional Social history: Not and no children. 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 No current Tobacco or EtOH. Prior history of illicit drugs, IVDA with Heroin.
[2019-02-20 11:35] VITALS: BP 107/63; PULSE 67; RESP 18; TEMP 36.4; O2SAT 95
--- NOTE | 2019-02-20 12:28 | PDOC.CMDIS ---
LACE Index Scoring Tool - Questions: Length of Stay (in days): 2 Acuity (Admit via E.D.?): Yes Comorbidities: Congestive Heart Failure, Chronic Pulmonary Disease E.D. Visits: 3 - Answers: Total Score: 13 Risk of Readmission: High Risk Care Management Discharge Reason for Hospitalization: CHF Exacerbation Discharge Plan: Kareem will return home when ready per MD. He will follow up with his PCP and plan of care and will resume community based supports for methadone maintenance and wound care. Kareem will transport home via private vehicle with his significant other, Mayra. Patient/Family Education Needs: Review discharge instructions, discuss Ask Me Three. Services Needed at Discharge: Outpatient Therapy (Wound care, methodone)
[2019-02-20] MEDS: Methadone 10 MG TAB PO (13:14)
== END 2019-02-20 14:10 | disposition home or self-care (01) | DRG 292 ==
LOC: ER 12:06 → MS 13:07
PROVIDERS: Admitting Provider Internal Medicine; Emergency Provider Emergency Medicine; PCP Family Medicine; Visit Provider Internal Medicine
DX: I50.33 Acute on chronic diastolic (congestive) heart failure (principal); F11.20 Opioid dependence, uncomplicated; Z91.14 Patient's other noncompliance with medication regimen; Z91.11 Patient's noncompliance with dietary regimen; I25.10 Atherosclerotic heart disease of native coronary artery without angina pectoris; J44.9 Chronic obstructive pulmonary disease, unspecified; E11.42 Type 2 diabetes mellitus with diabetic polyneuropathy; I25.5 Ischemic cardiomyopathy; Z95.5 Presence of coronary angioplasty implant and graft; I27.20 Pulmonary hypertension, unspecified; I34.0 Nonrheumatic mitral (valve) insufficiency; I25.2 Old myocardial infarction; Z95.810 Presence of automatic (implantable) cardiac defibrillator; F17.290 Nicotine dependence, other tobacco product, uncomplicated
CPT/HCPCS: 36415; 80048; 80053; 93005; 93306; 99222; 99232; 99239; 99285; J1650; 71046; 81003; 83735; 83880; 84484; 85025; 85610; 93010; J1940

== ENCOUNTER 2019-03-14 11:04 | Outpatient (CLI) | payer MEDICARE, SELFPAY ==
[2019-03-14 11:44] LABS: Abs Immature Grans 0.01 k/cumm (0.0-0.09); Absolute Basophil Count 0.03 k/cumm (0.0-0.2); Absolute Eosinophil Count 0.22 k/cumm (0.0-0.7); Absolute Lymphocyte Count 1.04 k/cumm (1.2-3.4); Absolute Monocyte Count 1.15 k/cumm (0.11-0.7); Basophils % 0.4; Eosinophils % 2.7; HGB 10.3 g/dL (13.5-17.5); Immature Grans % 0.1; Lymphocytes % 12.6; Mean Corp. HGB Concentration 30.3 g/dL (32.0-36.0); Mean Corpuscular Hemoglobin 23.7 pg (27.0-33.0); Mean Corpuscular Volume 78.3 fL (80-95); Mean Platelet Volume 10.1 fL (8.0-11.0); Monocytes % 13.9; Neutrophils % 70.3; Platelet Count 419 x1000/uL (130-400); RBC 4.34 m/cumm (4.50-6.00); RBC Distribution Width 16.9 % (11.8-14.1); White Blood Cell Count 8.25 k/cumm (4.4-10.8)
[2019-03-14 13:07] LABS: Anion Gap 9.6 mmol/L (3-11); BUN 18 mg/dL (7-18); CO2 30.4 mmol/L (21.0-32.0); CREATININE 1.31 mg/dL (0.70-1.30); Calcium 8.5 mg/dL (8.5-10.1); Chloride 101 mmol/L (98-107); Glucose 129 mg/dL (70-100); Potassium 3.4 mmol/L (3.5-5.1); Sodium 141 mmol/L (136-145)
[2019-03-14 13:24] LABS: NT-proBNP 4427 pg/mL
== END 2019-03-14 11:24 ==
PROVIDERS: PCP Family Medicine; Visit Provider Internal Medicine Interventional Cardiology
DX: R06.02 Shortness of breath (principal)
CPT/HCPCS: 36415; 80048; 83880; 85025

== ENCOUNTER 2019-04-16 15:25 | Emergency (ER) | payer MEDICARE, MEDICAID, SELFPAY ==
[2019-04-16] VITALS (29 sets, daily range): BP systolic 84–150; BP diastolic 18–80; PULSE 59–96; RESP 13–27; O2SAT 93–99
--- NOTE | 2019-04-16 15:50 | ED.GENADUL_ITS ---
Discharge Plan Disposition Patient Disposition: HOME Condition: Stable Discharge Details Chief Complaint: Palpitatns Clinical Impression: Ventricular tachycardia, monomorphic, Defibrillator discharge Primary Care Provider: Farida Hall V ED Provider: Manan Payton Home Meds and New Rx's Prescriptions: Continued mexiletine 200 mg capsule 200 mg PO Q8H RF: 0 clonazepam 1 MG tablet,disintegrating 0.5 tab PO BID RF: 0 gabapentin 600 mg tablet 1,200 mg PO BID RF: 0 methadone [Dolophine] 10 mg tablet 10 mg PO DIRECTED RF: 0 metoprolol succinate [Toprol XL] 100 mg tablet extended release 24 hr 25 mg PO DAILY RF: 0 aspirin [Aspir-81] 81 MG tablet,delayed release (DR/EC) 81 mg PO DAILY AM RF: 0 nitroglycerin [Nitrostat] 0.4 MG tablet, sublingual 0.4 mg Sublingual DIRECTED PRNRF: 0 oxycodone 20 MG tablet 1 - 2 tab PO Q4H PRN PRNRF: 0 dronabinol 5 MG capsule 5 mg PO BID PRNRF: 0 Narcan 4 MG spray,non-aerosol 4 mg Intranasal PRN PRNRF: 0 Sildenafil Citrate [Sildenafil] 20 MG tablet 20 mg PO TID PRNRF: 0 torsemide [Demadex] 20 MG tablet 20 mg PO DAILY Qty: 30 RF: 0 atorvastatin 40 MG tablet 40 mg PO HS Qty: 5 RF: 0 lisinopril 5 MG tablet 5 mg PO DAILY Qty: 5 RF: 0 prasugrel [Effient] 10 MG tablet 10 mg PO DAILY Qty: 5 RF: 0 ibuprofen 800 mg tablet 800 mg PO QID PRN (Reason: pain) Qty: 20 RF: 0 Discharge Instructions Additional Instructions: Continue your regular diet. Your potassium was slightly low but should be supplemented by the banana you are able to eat in the ER. Continue your regular medications. Your defibrillator discharged for monomorphic ventricular tachycardia. I discussed the case with [facility] cardiology who recommend you follow-up with our electrophysiology department. Home to rest this evening. Continue all regular medications. Medical Decision Making 58-year-old male with [employer] implantable cardiac defibrillator. States he felt the device discharge x1 at home. He had no antecedent discomfort. He denies chest pain, shortness of breath, palpitations. States his been taking his medications as prescribed. He follows with Dr. Owens. He has normal blood pressure, normal oxygenation, is resting comfortably on room air and his exam is without acute finding. Patient has a [employer] device. The patient has a home interrogation device which was brought to the ER and the device interrogated and sent to [employer]. Labs reassuring. Mild hypokalemia of 3.2 which the patient supplemented by eating a banana on his own in the ER. Troponin was negative. The patient had monomorphic V. tach that was appropriately shocked one time. The tracings were uploaded and the case discussed with on-call cardiology at [facility]. Patient is stable for discharge to home, he is to take all of his rib routinely prescribed medications. Cardiology feels he may be a candidate for ventricular ablation but may follow-up with him in the clinic. Discussed above with patient. He stable and improved, appropriate for discharge home at this time. Lab Data Lab results reviewed: Yes I reviewed the patient's lab results. Labs: Laboratory Results - last 24 hr 04/16/19 04/16/19 04/16/19 16:15 16:15 17:05 WBC 7.48 RBC 4.36 L Hgb 10.2 L Hct 33.3 L MCV 76.4 L MCH 23.4 L MCHC 30.6 L RDW 16.9 H Plt Count 378 MPV 10.0 Immature Gran % 0.1 Neutrophils % 77.6 Lymphocytes % 11.9 Monocytes % 8.8 Eosinophils % 1.3 Basophils % 0.3 Absolute Neutrophils 5.80 Absolute Lymphocytes 0.89 L Absolute Monocytes 0.66 Absolute Eosinophils 0.10 Absolute Basophils 0.02 Sodium Cancelled 139 Potassium Cancelled 3.2 L Chloride Cancelled 100 Carbon Dioxide Cancelled 33.7 H Anion Gap Cancelled 5.3 BUN Cancelled 16 Creatinine Cancelled 1.26 Estimated GFR/1.73 m2 Cancelled 58.99 Glucose Cancelled 142 H Calcium Cancelled 8.2 L Magnesium Cancelled 1.8 Total Bilirubin Cancelled 0.5 AST Cancelled 27 ALT Cancelled 23 Alkaline Phosphatase Cancelled 100 Troponin I Cancelled < 0.05 NT-Pro-B Natriuret Pep Cancelled 2303 H Total Protein Cancelled 7.7 Albumin Cancelled 3.0 L ECG Data Attestation: I personally reviewed and interpreted this ECG (s) as follows: Interpretation: Normal sinus rhythm, rate of 93, frequent ectopic beats. Nonspecific ST changes, not severely change from comparison. HPI General Mode of arrival: ambulatory . Date/Time Provider Initiated Documentation: 04/16/19 15:27 . Limitations to Documentation: no limitations . Information obtained by: patient . History of Present Illness 58 year old M presents to the emergency department with the chief complaint of Single discharge of implantable defibrillator, feels well., described as similar to prior episodes, and is localized to the chest. and it has been now resolved. No relieving factors improve symptom(s), No exacerbating factors reported . Patient notes denies chest pain, cough, nausea/vomiting, shortness of breath and syncope. Patient did receive the following treatments prior to arrival, none Related Data Home Medications Medication Instructions Recorded Confirmed aspirin [Aspir-81] 81 mg PO DAILY AM 10/16/12 02/18/19 nitroglycerin [Nitrostat] 0.4 mg SUBLINGUAL DIRECTED PRN 10/16/12 02/18/19 clonazepam 0.5 tab PO BID tab-cap 04/10/16 02/18/19 dronabinol 5 mg PO BID PRN 06/02/16 02/18/19 oxycodone 1 - 2 tab PO Q4H PRN PRN 06/02/16 02/18/19 atorvastatin 40 mg PO HS #5 tab-cap 05/19/17 02/18/19 lisinopril 5 mg PO DAILY #5 tab-cap 05/19/17 02/18/19 prasugrel [Effient] 10 mg PO DAILY #5 tab 05/19/17 02/18/19 torsemide [Demadex] 20 mg PO DAILY #30 tab 05/19/17 02/18/19 Narcan 4 mg INTRANASAL PRN PRN 07/01/17 02/18/19 Sildenafil Citrate [Sildenafil] 20 mg PO TID PRN 07/01/17 02/18/19 gabapentin 600 mg tablet 1,200 mg PO BID tab 07/10/18 02/18/19 methadone 10 mg tablet 10 mg PO DIRECTED tab 07/10/18 02/18/19 metoprolol succinate 100 mg 25 mg PO DAILY 07/10/18 02/18/19 tablet,extended release 24 hr ibuprofen 800 mg PO QID PRN #20 tab 08/07/18 02/18/19 mexiletine 200 mg capsule 200 mg PO Q8H 09/11/18 02/18/19 Previous Rx's Medication Instructions Recorded atorvastatin 40 mg PO HS #5 tab-cap 05/19/17 lisinopril 5 mg PO DAILY #5 tab-cap 05/19/17 prasugrel [Effient] 10 mg PO DAILY #5 tab 05/19/17 torsemide [Demadex] 20 mg PO DAILY #30 tab 05/19/17 ibuprofen 800 mg PO QID PRN #20 tab 08/07/18 Allergies Allergy/AdvReac Type Severity Reaction Status Date / Time ticagrelor [From Brilinta] AdvReac Severe Unverified 10/22/18 12:45 fluoxetine HCl [From Prozac] AdvReac Intermediate FELT AWFUL Unverified 10/22/18 12:45 duloxetine AdvReac Mild DOESN'T Unverified 10/22/18 12:45 FEEL WELL General Stated Complaint: Palpitatns YANI: 2 Review of Systems Narrative: States that he is doing well, urinating, recently started spironolactone. Follows with Dr. Owens. [facility] Medical History Cardiac defibrillator in place (Acute) Cardiomyopathy (Chronic) Chronic anticoagulation (Chronic) Chronic back pain (Chronic) Chronic neck pain (Chronic) Chronic ulcer of right leg (Chronic) Cleft palate and cleft lip (Chronic) Congestive heart failure (Chronic) COPD (chronic obstructive pulmonary disease) (Chronic) Diabetes (Chronic) History of osteomyelitis (Inactive) Hx of myocardial infarction (Inactive) Hx pulmonary embolism (Inactive) Insomnia (Chronic) Mitral regurgitation (Chronic) Peripheral neuropathy (Chronic) PTSD (post-traumatic stress disorder) (Chronic) Sleep apnea (Chronic) Social History Smoking/Tobacco Use Status: Current-Occasional Tobacco Type: e-cigarettes Tobacco: How many years used: 20 Alcohol Intake: never Drug use: Current Sobriety Substance use type: does not use Do you feel safe at home: Yes Do you feel safe in your relationship?: Yes Additional Social history: Not and no children. 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 No current Tobacco or EtOH. Prior history of illicit drugs, IVDA with Heroin. Exam Narrative Exam Narrative: GEN: awake, alert, oriented 3. Pleasant, well groomed, interactive. HEAD: Normocephalic, atraumatic ENT: Mucous membranes moist, oropharynx unremarkable, External ear exam unremarkable EYES: PERRL, EOMI NECK: Full ROM, no MUSTAPHA, no menigismus CHEST/RESP: Nontender, clear to auscultation bilateral, no wheeze/rhonchi/rales CARDIOVASCULAR: Regular, distant, blowing systolic ejection murmur. 2+ Rad pulse bilateral ABDOMEN: Soft, nontender, no mass. +Bowel sounds EXT: Full ROM, no edema, no rash. RLE wound dressed, c/d/i Neuro: Grossly normal neurologic exam, conversant, interactive. Psych: Speech fluent, thoughts congruent, affect normal Course Vital Signs Vital signs: Vital Signs Pulse 93 H 04/16/19 15:29 Respiratory Rate 20 04/16/19 15:29 Blood Pressure 110/71 04/16/19 15:29 Pulse 93 H 04/16/19 15:29 Respiratory Rate 20 04/16/19 15:29 Respiratory Effort 04/16/19 15:35 Blood Pressure 110/71 04/16/19 15:29 Oxygen Delivery Method Room Air 04/16/19 15:29 Oxygen Flow Rate 0 04/16/19 15:29 Pain Level 0 04/16/19 15:29
[2019-04-16 16:25] LABS: Abs Immature Grans 0.01 k/cumm (0.0-0.09); Absolute Basophil Count 0.02 k/cumm (0.0-0.2); Absolute Lymphocyte Count 0.89 k/cumm (1.2-3.4); Absolute Monocyte Count 0.66 k/cumm (0.11-0.7); Basophils % 0.3; Eosinophils % 1.3; HCT 33.3 % (40.0-50.0); HGB 10.2 g/dL (13.5-17.5); Immature Grans % 0.1; Lymphocytes % 11.9; Mean Corp. HGB Concentration 30.6 g/dL (32.0-36.0); Mean Corpuscular Hemoglobin 23.4 pg (27.0-33.0); Mean Corpuscular Volume 76.4 fL (80-95); Monocytes % 8.8; Neutrophils % 77.6; Platelet Count 378 x1000/uL (130-400); RBC 4.36 m/cumm (4.50-6.00); RBC Distribution Width 16.9 % (11.8-14.1); White Blood Cell Count 7.48 k/cumm (4.4-10.8)
--- NOTE | 2019-04-16 16:40 | DI.RAD_ITS ---
EXAM: XR CHEST 2V PA LATERAL INDICATION: ICD discharge. COMPARISON: XR CHEST 2V PA LATERAL from 06/10/2018 XR CHEST 2V PA LATERAL from 02/18/2019 TECHNIQUE: 2D digital imaging was performed. FINDINGS: The heart size is within normal limits. An electronic device is seen along the left lateral chest wit h lead projecting anterior to the sternum. Calcified granuloma in the left mid lung field is again n oted. There is mild blunting of the costophrenic angles. This could indicate tiny effusions versus m ild CHF. There are increased densities at the right lung base not changed from the more recent exam. There is mild prominence of the vasculature which could indicate mild CHF. IMPRESSION: Question of mild CHF. There are decreased pulmonary densities when compared with more recent exam of February,.
--- NOTE | 2019-04-16 17:02 | DI.VRAD_ITS ---
PROCEDURE INFORMATION: Exam: XR Chest, 2 Views Exam date and time: 04/16/2019 4:39 PM Clinical history: 58 years old, male; Other: Icd discharge TECHNIQUE: Imaging protocol: XR of the chest Views: 2 views. COMPARISON: CR XR CHEST 2V PA LATERAL 02/18/2019 9:57 AM FINDINGS: Tubes, catheters and devices: There is a left-sided defibrillator with the lead anterior to the sternum. Lungs: There is a 14 mm nodule is fairly dense in the left midlung not changed since 02/18/2019 bone was described as small on the report of 06/10/2018. Do not have these images for comparison There is some haziness and interstitial markings in both lungs especially in the hilar regions are worse on the left. Pleural space: Unremarkable. No pleural effusion. No pneumothorax. Heart/Mediastinum: Unremarkable. No cardiomegaly. Bones/joints: Unremarkable. Other findings: There is blunting of the right cusp and again old with abnormal reticular densities adjacent unchanged since 02/18/2013 but were not present 06/10/2018. IMPRESSION: 1. Findings suggesting mild CHF. 2. 14 mm of nodule left midlung most likely a granuloma but comparison with previous studies from 2017 are suggested Dictated and Authenticated by: Tyrone Morales MD. Ordering:COLUMBA Hinkle MD
[2019-04-16 17:45] LABS: ALT 23 U/L (16-63); AST 27 U/L (15-37); Alkaline Phosphatase 100 U/L (46-116); Anion Gap 5.3 mmol/L (3-11); BUN 16 mg/dL (7-18); Bilirubin, Total 0.5 mg/dL (0.2-1.0); CO2 33.7 mmol/L (21.0-32.0); CREATININE 1.26 mg/dL (0.70-1.30); Calcium 8.2 mg/dL (8.5-10.1); Chloride 100 mmol/L (98-107); Estimated GFR 58.99 (mL/min/1.73m2); Glucose 142 mg/dL (70-100); Magnesium 1.8 mg/dL (1.8-2.4); NT-proBNP 2303 pg/mL; Potassium 3.2 mmol/L (3.5-5.1); Sodium 139 mmol/L (136-145); Total Protein 7.7 g/dL (6.4-8.2); Troponin I < 0.05 ng/mL (0.00-0.06)
== END 2019-04-16 18:55 | disposition home or self-care (01) ==
PROVIDERS: Emergency Provider Emergency Medicine; PCP Family Medicine
DX: I47.2 Ventricular tachycardia (principal); E87.6 Hypokalemia; I50.9 Heart failure, unspecified; I25.10 Atherosclerotic heart disease of native coronary artery without angina pectoris; J44.9 Chronic obstructive pulmonary disease, unspecified; F17.290 Nicotine dependence, other tobacco product, uncomplicated; E11.9 Type 2 diabetes mellitus without complications; Z95.810 Presence of automatic (implantable) cardiac defibrillator
CPT/HCPCS: 36415; 80053; 93005; 99284; 71046; 83735; 83880; 84484; 85025; 93010

== ENCOUNTER 2019-04-24 22:13 | Outpatient (REF) | payer MEDICARE, MEDICAID, SELFPAY ==
[2019-04-30 12:24] LABS: Amphetamine Negative ng/mL (Cutoff: 25); Amphetamines Interpretation Negative.; MDA (Ecstasy Metabolite) Negative ng/mL (Cutoff: 25); MDMA (Ecstasy) Negative ng/mL (Cutoff: 25); Methamphetamine Negative ng/mL (Cutoff: 25); Phentermine Negative ng/mL (Cutoff: 25); Pseudoephedrine/Ephedrine Negative ng/mL (Cutoff: 25)
== END 2019-04-24 22:33 ==
LOC: NCHCN 22:13
PROVIDERS: PCP Family Medicine; Visit Provider Family Medicine
DX: M54.89 Other dorsalgia (principal); G89.29 Other chronic pain; Z51.81 Encounter for therapeutic drug level monitoring
CPT/HCPCS: 80324

== ENCOUNTER 2019-07-01 13:30 | Outpatient (REF) | payer MEDICARE, MEDICAID, SELFPAY ==
[2019-07-01 22:24] LABS: ALT 30 U/L (16-63); AST 44 U/L (15-37); Albumin 3.3 g/dL (3.4-5.0); Alkaline Phosphatase 110 U/L (46-116); BUN 18 mg/dL (7-18); Bilirubin, Total 0.5 mg/dL (0.2-1.0); CREATININE 1.35 mg/dL (0.70-1.30); Calcium 8.8 mg/dL (8.5-10.1); Chloride 101 mmol/L (98-107); Estimated GFR 54.47 (mL/min/1.73m2); Ferritin 32 ng/mL (26-388); Glucose 87 mg/dL (74-106); Potassium 4.6 mmol/L (3.5-5.1); Sodium 139 mmol/L (136-145); Total Protein 7.6 g/dL (6.4-8.2)
== END 2019-07-01 13:50 ==
LOC: NCHCN 13:30
PROVIDERS: PCP Family Medicine; Visit Provider Family Medicine
DX: M25.561 Pain in right knee (principal); D64.9 Anemia, unspecified
CPT/HCPCS: 80053; 82728

== ENCOUNTER 2019-07-03 20:34 | Emergency (ER) | payer MEDICARE, MEDICAID, SELFPAY ==
[2019-07-03 20:41] VITALS: BP 112/96; PULSE 82; RESP 16; TEMP 36.3; O2SAT 99
--- NOTE | 2019-07-03 20:41 | W.ED.GENAD ---
Discharge Plan Disposition Patient Disposition: HOME Condition: Good Discharge Details Chief Complaint: Orthopedic Clinical Impression: Injury of knee, right Primary Care Provider: Farida Hall V ED Provider: Maury Vargas [place] Meds and New Rx's Prescriptions: Continued mexiletine 200 mg capsule 200 mg PO Q8H RF: 0 clonazepam 1 MG tablet,disintegrating 0.5 tab PO BID RF: 0 gabapentin 600 mg tablet 1,200 mg PO BID RF: 0 methadone [Dolophine] 10 mg tablet 60 mg PO DAILY RF: 0 metoprolol succinate [Toprol XL] 100 mg tablet extended release 24 hr 25 mg PO DAILY RF: 0 aspirin [Aspir-81] 81 MG tablet,delayed release (DR/EC) 81 mg PO DAILY AM RF: 0 nitroglycerin [Nitrostat] 0.4 MG tablet, sublingual 0.4 mg Sublingual DIRECTED PRNRF: 0 oxycodone 20 MG tablet 2 tab PO Q4H PRN PRNRF: 0 dronabinol 5 MG capsule 5 mg PO BID PRNRF: 0 Narcan 4 MG spray,non-aerosol 4 mg Intranasal PRN PRNRF: 0 Sildenafil Citrate [Sildenafil] 20 MG tablet 20 mg PO TID PRNRF: 0 torsemide [Demadex] 20 MG tablet 20 mg PO DAILY Qty: 30 RF: 0 atorvastatin 40 MG tablet 40 mg PO HS Qty: 5 RF: 0 lisinopril 5 MG tablet 5 mg PO DAILY Qty: 5 RF: 0 prasugrel [Effient] 10 MG tablet 10 mg PO DAILY Qty: 5 RF: 0 ibuprofen 800 mg tablet 800 mg PO QID PRN (Reason: pain) Qty: 20 RF: 0 spironolactone 25 mg Tablet 12.5 mg PO DAILY RF: 0 Spiriva with HandiHaler 18 mcg Capsule, W/Inhalation Device 1 cap INHALATION DAILY RF: 0 Discharge Instructions Additional Instructions: X-rays do not show evidence of fracture or dislocation. There may still be internal derangement to the knee, specifically meniscal injury. Wear the knee immobilizer to help with support and ambulation. Follow-up with primary care or orthopedics in the next 1 to 2 weeks for reevaluation. Continue your medication as before. For the first few days use ice and keep legs elevated to help with the pain and swelling. Return to ED for inability to ambulate, numbness, weakness. Referrals: Farida Hall MD [Primary Care Provider] - Manan Pettit MD [ [facility] STAFF PHYSICIAN] - Medical Decision Making Patient here for right knee pain. Denies any neurologic symptoms and denies true loss of consciousness with fall. He is not on blood thinners. He does appear to have fair amount of swelling as well as tenderness in the medial aspect of the knee. X-rays ordered. Per my review as well as preliminary radiology read there is no fracture or dislocation noted. Patient will be placed in a hinged knee immobilizer to help with discomfort and ambulation. He typically sees Dr. Pettit for other orthopedic problems so will refer to him for evaluation of potential meniscus injury. Patient on narcotics for chronic pain which he may continue. Medical Records Medical records reviewed: Yes I reviewed the patient's medical records. HPI General Mode of arrival: ambulatory. Date/Time Provider Initiated Documentation: 07/03/19 20:41. Limitations to Documentation: no limitations. Information obtained by: patient. HPI Narrative: Patient presents to ED with chief complaint of right knee pain. Patient reports a fall 2 days ago while in the shower. He struck his head and does not think he had loss of consciousness but is not really sure exactly how he fell. He also injured his right knee in the fall. Difficulty ambulating that day. He was a little better yesterday but today pain is worse and swelling is worse in the knee. He denies any neurologic symptoms, headache, neck pain, vomiting. He is here only because of the knee and the increased pain and swelling. He is able to ambulate but with difficulty. Related Data Home Medications Medication Instructions Recorded Confirmed aspirin [Aspir-81] 81 mg PO DAILY AM 10/16/12 07/03/19 nitroglycerin [Nitrostat] 0.4 mg SUBLINGUAL DIRECTED PRN 10/16/12 07/03/19 clonazepam 0.5 tab PO BID tab-cap 04/10/16 07/03/19 dronabinol 5 mg PO BID PRN 06/02/16 07/03/19 oxycodone 2 tab PO Q4H PRN PRN 06/02/16 07/03/19 atorvastatin 40 mg PO HS #5 tab-cap 05/19/17 07/03/19 lisinopril 5 mg PO DAILY #5 tab-cap 05/19/17 07/03/19 prasugrel [Effient] 10 mg PO DAILY #5 tab 05/19/17 07/03/19 torsemide [Demadex] 20 mg PO DAILY #30 tab 05/19/17 07/03/19 Narcan 4 mg INTRANASAL PRN PRN 07/01/17 07/03/19 Sildenafil Citrate [Sildenafil] 20 mg PO TID PRN 07/01/17 07/03/19 gabapentin 600 mg tablet 1,200 mg PO BID tab 07/10/18 07/03/19 methadone 10 mg tablet 60 mg PO DAILY tab 07/10/18 07/03/19 metoprolol succinate 100 mg 25 mg PO DAILY 07/10/18 07/03/19 tablet,extended release 24 hr ibuprofen 800 mg PO QID PRN #20 tab 08/07/18 07/03/19 mexiletine 200 mg capsule 200 mg PO Q8H 09/11/18 07/03/19 Spiriva with HandiHaler 1 cap INHALATION DAILY 07/03/19 07/03/19 spironolactone 12.5 mg PO DAILY 07/03/19 07/03/19 Previous Rx's Medication Instructions Recorded atorvastatin 40 mg PO HS #5 tab-cap 05/19/17 lisinopril 5 mg PO DAILY #5 tab-cap 05/19/17 prasugrel [Effient] 10 mg PO DAILY #5 tab 05/19/17 torsemide [Demadex] 20 mg PO DAILY #30 tab 05/19/17 ibuprofen 800 mg PO QID PRN #20 tab 08/07/18 Allergies Allergy/AdvReac Type Severity Reaction Status Date / Time ticagrelor [From Brilinta] AdvReac Severe Unverified 10/22/18 12:45 fluoxetine HCl [From Prozac] AdvReac Intermediate FELT AWFUL Unverified 10/22/18 12:45 duloxetine AdvReac Mild DOESN'T Unverified 10/22/18 12:45 FEEL WELL General YANI: 2 Review of Systems Constitutional Constitutional: Denies headache(s) ENT Ears, Nose, Mouth, and Throat: Denies headache(s) Musculoskeletal Musculoskeletal: Reports arthralgias, Reports joint swelling, Reports limited range of motion and Denies numbness Neurologic Neurologic: Denies abnormal speech, Denies confusion, Denies headache(s), Denies focal weakness and Denies numbness Psychiatric Psychiatric: Denies confusion [facility] Medical History (Updated 07/03/19 @ 21:39 by Maury Vargas MD) Cardiac defibrillator in place (Acute) Cardiomyopathy (Chronic) Chronic back pain (Chronic) Chronic neck pain (Chronic) Chronic ulcer of right leg (Chronic) Cleft palate and cleft lip (Chronic) Congestive heart failure (Chronic) COPD (chronic obstructive pulmonary disease) (Chronic) Diabetes (Chronic) History of osteomyelitis (Inactive) Hx of myocardial infarction (Inactive) Hx pulmonary embolism (Inactive) Insomnia (Chronic) Mitral regurgitation (Chronic) Peripheral neuropathy (Chronic) PTSD (post-traumatic stress disorder) (Chronic) Sleep apnea (Chronic) Social History Smoking/Tobacco Use Status: Current-Occasional Tobacco Type: e-cigarettes Tobacco: How many years used: 20 Alcohol Intake: never Drug use: Current Sobriety Substance use type: does not use Do you feel safe at home: Yes Do you feel safe in your relationship?: Yes Additional Social history: Not and no children. 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 No current Tobacco or EtOH. Prior history of illicit drugs, IVDA with Heroin. Exam Const General: cooperative and no acute distress Orientation: alert and oriented x3 HENMT Head: abrasion (forehead) Neck Neck: full ROM Neuro General: alert and oriented x3 Cranial Nerves: CN's II-XI intact bilaterally Motor: strength 5/5 throughout Sensory Exam: no sensory deficits noted Extrem Other: Right knee with swelling and decreased active range of motion. Better passive range of motion but still cannot flex all the way to 90 degrees. Most of his tenderness is along the medial aspect of the tibia plateau area. No patella tenderness. No fibular head tenderness. Able to lift leg off bed in full extension. Neurovascularly intact distally. Wound dressing in place mid tibia region for chronic wound.
--- NOTE | 2019-07-03 21:25 | DI.RAD_ITS ---
EXAM: XR KNEE RT 3V AP,LAT,DANIA CLINICAL HISTORY: trauma/swelling/difficulty walking TECHNIQUE: COMPARISON: RIGHT KNEE 3 VIEWS from 03/26/2014 FINDINGS: Three views were obtained. There appears to be a small to moderate size knee joint effusion. No acu te fracture or dislocation seen. There is narrowing of the cartilaginous joint spaces of the knee, mild periarticular hypertrophic adina nges consistent with degenerative change. IMPRESSION:
--- NOTE | 2019-07-03 21:32 | DI.VRAD_ITS ---
PROCEDURE INFORMATION: Exam: XR Right Knee Exam date and time: 07/03/2019 9:25 PM Age: 58 years old Clinical indication: Swelling or effusion of joint; Knee; Additional info: Trauma/swelling/difficulty walking TECHNIQUE: Imaging protocol: XR Right knee. Views: 3 views. COMPARISON: CR RIGHT KNEE 3 VIEWS 03/26/2014 2:17 PM FINDINGS: Bones/joints: Small suprapatellar joint effusion is present. No acute fracture or dislocation. There is mild for age tricompartmental marginal osteophyte formation. Soft tissues: [id number] diffuse subcutaneous soft tissue edema. IMPRESSION: 1. No acute fracture or dislocation. Mild to moderate diffuse subcutaneous edema. 2. Small suprapatellar joint effusion. 3. Mild tricompartmental degenerative changes. Dictated and Authenticated by: Gokul Fontaine MD. Ordering:KIRAN Mendiola MD
[2019-07-03 21:45] VITALS: BP 112/96; PULSE 82; RESP 16; O2SAT 99
== END 2019-07-03 21:45 | disposition home or self-care (01) ==
PROVIDERS: Emergency Provider Emergency Medicine; PCP Family Medicine
DX: S89.91XA Unspecified injury of right lower leg, initial encounter (principal); W18.2XXA Fall in (into) shower or empty bathtub, initial encounter; J44.9 Chronic obstructive pulmonary disease, unspecified; E11.9 Type 2 diabetes mellitus without complications
CPT/HCPCS: 29505; 73562; 99283; L1810

== ENCOUNTER → 2019-07-15 11:19 | Outpatient (BNVA) | payer MEDICARE, MEDICAID, SELFPAY | PROVIDERS: PCP Family Medicine; Referring Provider Family Medicine; Visit Provider Orthopaedic Surgery | DX: M23.91 Unspecified internal derangement of right knee (principal); W18.2XXA Fall in (into) shower or empty bathtub, initial encounter; J44.9 Chronic obstructive pulmonary disease, unspecified; E11.9 Type 2 diabetes mellitus without complications; F17.200 Nicotine dependence, unspecified, uncomplicated | CPT/HCPCS: 99213 ==

== ENCOUNTER 2019-07-17 20:20 | Outpatient (REF) | payer MEDICARE, MEDICAID, SELFPAY ==
[2019-07-17 21:48] LABS: HCT 29.6 % (40.0-50.0); HGB 8.8 g/dL (13.5-17.5); Mean Corp. HGB Concentration 29.7 g/dL (32.0-36.0); Mean Corpuscular Volume 77.5 fL (80-95); Mean Platelet Volume 9.5 fL (8.0-11.0); Platelet Count 582 x1000/uL (130-400); RBC 3.82 m/cumm (4.50-6.00); RBC Distribution Width 20.2 % (11.8-14.1); White Blood Cell Count 5.98 k/cumm (4.4-10.8)
[2019-07-17 22:08] LABS: Hemoglobin A1C 6.3 % (3.8-5.6)
[2019-07-17 22:34] LABS: ALT 23 U/L (16-63); AST 34 U/L (15-37); Albumin 3.1 g/dL (3.4-5.0); Alkaline Phosphatase 127 U/L (46-116); Anion Gap 7.6 mmol/L (3-11); BUN 17 mg/dL (7-18); Bilirubin, Total 0.3 mg/dL (0.2-1.0); CO2 30.4 mmol/L (21.0-32.0); CREATININE 1.28 mg/dL (0.70-1.30); Calcium 8.9 mg/dL (8.5-10.1); Chloride 101 mmol/L (98-107); Estimated GFR 57.93 (mL/min/1.73m2); Ferritin 16 ng/mL (26-388); Folate 9.6 ng/mL (8.6-20.0); Glucose 116 mg/dL (74-106); Potassium 4.4 mmol/L (3.5-5.1); Sodium 139 mmol/L (136-145); Total Protein 7.6 g/dL (6.4-8.2); Vitamin B12 648 pg/mL (193-986)
== END 2019-07-17 20:40 ==
LOC: NCHCN 20:20
PROVIDERS: PCP Family Medicine; Visit Provider Family Medicine
DX: D64.9 Anemia, unspecified (principal); I25.10 Atherosclerotic heart disease of native coronary artery without angina pectoris; I50.9 Heart failure, unspecified; E11.9 Type 2 diabetes mellitus without complications; Z79.01 Long term (current) use of anticoagulants
CPT/HCPCS: 80053; 85027; 82607; 82728; 82746; 83036

== ENCOUNTER → 2019-08-26 10:50 | Outpatient (BNVA) | payer MEDICARE, MEDICAID, SELFPAY | PROVIDERS: PCP Family Medicine; Visit Provider Orthopaedic Surgery | DX: M23.91 Unspecified internal derangement of right knee (principal) | CPT/HCPCS: 20610; 99213; J1040 ==

== ENCOUNTER 2019-10-09 12:03 | Outpatient (REF) | payer MEDICARE, MEDICAID, SELFPAY ==
[2019-10-09 19:48] LABS: HCT 34.3 % (40.0-50.0); HGB 10.5 g/dL (13.5-17.5)
[2019-10-09 20:14] LABS: ALT 30 U/L (16-63); AST 43 U/L (15-37); Albumin 3.4 g/dL (3.4-5.0); Alkaline Phosphatase 117 U/L (46-116); Anion Gap 8.6 mmol/L (3-11); BUN 18 mg/dL (7-18); Bilirubin, Total 0.3 mg/dL (0.2-1.0); CO2 29.4 mmol/L (21.0-32.0); CREATININE 1.22 mg/dL (0.70-1.30); Calcium 8.4 mg/dL (8.5-10.1); Chloride 100 mmol/L (98-107); Glucose 95 mg/dL (74-106); Magnesium 1.9 mg/dL (1.8-2.4); Potassium 4.2 mmol/L (3.5-5.1); Sodium 138 mmol/L (136-145); Total Protein 7.6 g/dL (6.4-8.2)
[2019-10-13 03:25] LABS: Codeine Negative ng/mL (Cutoff: 25); Dihydrocodeine Negative ng/mL (Cutoff: 25); Hydrocodone Negative ng/mL (Cutoff: 25); Hydromorphone Negative ng/mL (Cutoff: 25); Morphine Negative ng/mL (Cutoff: 25); Naloxone Negative ng/mL (Cutoff: 25); Norhydrocodone Negative ng/mL (Cutoff: 25); Noroxycodone Negative ng/mL (Cutoff: 25); Noroxymorphone Negative ng/mL (Cutoff: 25); Opiates Interpretation Negative.
[2019-10-17 06:56] LABS: EDDP-by GC-MS 1197 ng/mL; Methadone Interpretation Positive.; Methadone-by GC-MS 1603 ng/mL
[2019-10-19 05:12] LABS: 2-OH-Ethyl-Flurazepam Negative ng/mL (Cutoff: 100); 7-NH-Clonazepam 738 ng/mL (Cutoff: 100); 7-NH-Flunitrazepam Negative ng/mL (Cutoff: 50); Alpha OH-Alprazolam Negative ng/mL (Cutoff: 100); Alpha-OH-Triazolam Negative ng/mL (Cutoff: 100); Benzodiazepines Interpretation Positive.; Lorazepam Negative ng/mL (Cutoff: 100); Temazepam Negative ng/mL (Cutoff: 100)
== END 2019-10-09 12:23 ==
LOC: NCHCN 12:03
PROVIDERS: PCP Family Medicine; Visit Provider Family Medicine
DX: D64.9 Anemia, unspecified (principal); I25.5 Ischemic cardiomyopathy; F11.20 Opioid dependence, uncomplicated; Z51.81 Encounter for therapeutic drug level monitoring; Z79.899 Other long term (current) drug therapy
CPT/HCPCS: 80053; 80361; 80346; 80358; 83735; 85014; 85018

== ENCOUNTER 2019-11-12 13:47 | Outpatient (REF) | payer MEDICARE, MEDICAID, SELFPAY | END 2019-11-12 14:07 | LOC: LBN 13:47 | PROVIDERS: PCP Family Medicine; Visit Provider Family Medicine | DX: L97.911 Non-pressure chronic ulcer of unspecified part of right lower leg limited to breakdown of skin (principal) | CPT/HCPCS: 87077; 87070; 87186; 87205 ==

== ENCOUNTER 2019-11-23 20:32 | Emergency (ER) | payer MEDICARE, MEDICAID, SELFPAY ==
[2019-11-23] VITALS (29 sets, daily range): BP systolic 80–144; BP diastolic 59–92; PULSE 67–136; RESP 13–28; TEMP 36.7; O2SAT 91–97
--- NOTE | 2019-11-23 21:00 | DI.CT_ITS ---
EXAM: CT HEAD WO CLINICAL HISTORY: Syncope rule out mass, fracture. TECHNIQUE: Imaging Protocol: Axial computed tomography images with coronal and sagittal reformatted images were created and reviewed COMPARISON: CT HEAD AND CSPINE W/O CONTRAST from 01/08/2018 FINDINGS: Ventricles and Extra axial spaces: Normal in size and morphology for the patient's age. Hemorrhage: None. Cerebral parenchyma: Normal. Midline shift: None. Brainstem/Cerebellum: Normal. Calvarium: Postsurgical changes are seen in the facial bones. Visualized Paranasal sinuses/Mastoids: Clear. Soft Tissues: Unremarkable. IMPRESSION: No acute intracranial process. RADIATION DOSE DELIVERED: 891.13mGy.cm Total DLP DATA REPOSITORY: All CT scans at this facility are submitted to the National Radiology Data Registry (NRDR) Dose Index Registry (DIR) with the [employer] (A[employer]). RADIATION OPTIMIZATION: All CT scans at this facility use at least one of these dose optimization te chniques: automated exposure control; mA and/or kV adjustment per patient size (includes targeted exa ms where dose is matched to clinical indication); or iterative reconstruction.
--- NOTE | 2019-11-23 21:03 | W.ED.GENAD ---
Discharge Plan Disposition Patient Disposition: HOME Condition: Stable Discharge Details Chief Complaint: AMS/LOC Clinical Impression: Closed head injury with brief loss of consciousness Primary Care Provider: Farida Hall V ED Provider: Noelle Melo Home Meds and New Rx's Prescriptions: No Action torsemide 20 mg tablet 20 mg PO DAILY RF: 0 prasugrel 10 mg tablet 10 mg PO DAILY RF: 0 metoprolol succinate [Toprol XL] 100 mg tablet extended release 24 hr 100 mg PO HS RF: 0 albuterol sulfate [ProAir HFA] 90 mcg/actuation HFA aerosol inhaler 2 puff IH Q6H PRNRF: 0 ferrous gluconate 324 mg (38 mg iron) tablet 324 mg PO BID RF: 0 mexiletine 200 mg capsule 200 mg PO BID RF: 0 clonazepam 1 MG tablet,disintegrating 0.5 tab PO BID PRNRF: 0 gabapentin 600 mg tablet 1,200 mg PO BID RF: 0 methadone [Dolophine] 10 mg tablet See Rx Instructions .ROUTE .COMPLEX RF: 0 ibuprofen 800 mg tablet 800 mg PO TID PRN (Reason: pain) Qty: 90 RF: 1 aspirin [Aspir-81] 81 MG tablet,delayed release (DR/EC) 81 mg PO DAILY AM RF: 0 nitroglycerin [Nitrostat] 0.4 MG tablet, sublingual 0.4 mg Sublingual DIRECTED PRNRF: 0 oxycodone 20 MG tablet 2 tab PO Q4H PRN PRNRF: 0 dronabinol 5 MG capsule 5 mg PO BID PRNRF: 0 Narcan 4 MG spray,non-aerosol 4 mg Intranasal PRN PRNRF: 0 Sildenafil Citrate [Sildenafil] 20 MG tablet 20 mg PO TID PRNRF: 0 omeprazole 20 mg capsule,delayed release(DR/EC) 20 mg PO DAILY RF: 0 atorvastatin 40 MG tablet 40 mg PO DAILY RF: 0 lisinopril 5 MG tablet 5 mg PO DAILY Qty: 5 RF: 0 spironolactone 25 mg Tablet 12.5 mg PO DAILY RF: 0 Spiriva with HandiHaler 18 mcg Capsule, W/Inhalation Device 1 cap INHALATION DAILY RF: 0 Discharge Instructions Instructions: Head Injury (ED) Additional Instructions: Your head CT was within normal limits at this time. No internal bleeding, mass or any other cranial abnormalities. Please follow-up closely with your ground water technician if any recurrent syncopal episodes please return to the ED. Return immediately for any worsening confusion, nausea vomiting, altered mental status or any concerns. Follow up with primary care provider in 3-5 days. Return to ED sooner if any worsening or concerns. Increase oral fluids. Referrals: Farida Hall MD [Primary Care Provider] - Medical Decision Making 51-year-old male presents to the ED status post closed head injury followed by syncopal episode. Patient states 1 hour prior to arrival he was working with frontal, slammed the top of his head into a large branch, fell back to the ground states that everything went black unknown length of LOC. He presents alert and oriented x3, no focal neuro deficits noted. He states something just not right. He does have a history cardiac defibrillator, cardiomyopathy, congestive heart failure, diabetes, mitral regurgitation, PTSD and sleep apnea. Initial EKG obtained shows widened QRS in V1 V2 V3. Patient denies any chest pain, shortness of breath, does have pain with left lateral EOM. Does have a small abrasion noted to top of his head and a small hematoma surrounding. No palpable depressed skull fracture. 2049: EKG was reviewed by Korey Rosado DO ER attending, shows sinus rhythm, nonspecific QRS widening noted in V1 V2 V3, there was an old EKG available for review from April 2019. No ST elevation or depression noted no ectopy. 2109: Informed by medical staffing coordinator that blood pressure is 80/49 heart rate is non-tachycardic at a rate of 80. Patient is still mentating okay, normal saline 1 L bolus ordered instructed to change rate to 100 mils an hour due to patient's sense of history of CHF and on multiple diuretics. At this time work-up ordered including CBC, CMP, ethyl alcohol level, troponin and serial troponins ordered, urinalysis, UDS, head CT without contrast and EKG. 2140: Patient reevaluation blood pressure is 107/76, head CT results showed no evidence for acute intracranial injury. COMPARISON: CT HEAD AND CSPINE W/O CONTRAST 01/08/2018 4:19 PM FINDINGS: The ventricles, sulci and basilar cisterns are normal for the patient's stated age. There is no evidence for acute infarct. There is no evidence for mass. There is no hemorrhage. There are no extra-axial fluid collections. There is no midline shift. The skull is intact. The visualized paranasal sinuses are well aerated. The mastoid air cells on the left are well aerated and the middle ear on the left appears normal. IMPRESSION: No evidence for acute intracranial injury. Thank you for allowing us to participate in the care of your patient. Dictated and Authenticated by: Anand Verma MD 2318: Plan is to interrogate pacemaker, second troponin pending at this time, sent for draw at midnight proximately. Patient is alert and oriented hemodynamically stable, alert and oriented, informed patient of head CT results, blood pressure right now is 170, heart rate 71, O2 sat on room air is 94%. 2236: medical staffing coordinator attempting to interrogate pacemaker/defibrillator upon medical record review patient does have a [employer] device, we will call [facility] cardiology to see if they can remotely interrogate device. Patient remains hemodynamically stable, continues to have no chest pain or shortness of breath. 2324: Patient reevaluation, patient wondering why he is still here patient is requesting to have his left ear irrigated out, on initial exam this does appear to have some fluid behind the tympanic membrane, is non-erythemic no foreign body or cerumen impaction noted in the external ear canal. On review of the head CT there is no sinusitis or fluid noted to the sinuses. Second troponin discontinue at this time due to no complaints of chest pain or repeat syncopal episodes. Patient given closed head injury instructions and discussed strict return instructions, verbalized understanding. Patient states he does have a cardiology follow-up appointment in December. Have not received urinalysis or UDS at this time. Patient ambulatory in department, awaiting ride. HPI General Mode of arrival: wheelchair. Date/Time Provider Initiated Documentation: 11/23/19 20:49. Limitations to Documentation: no limitations. Information obtained by: patient. HPI Narrative: 51-year-old male presents to the ED status post closed head injury followed by syncopal episode. Patient states 1 hour prior to arrival he was working with frontal, slammed the top of his head into a large branch, fell back to the ground states that everything went black unknown length of LOC. He presents alert and oriented x3, no focal neuro deficits noted. He states something just not right. He does have a history cardiac defibrillator, cardiomyopathy, congestive heart failure, diabetes, mitral regurgitation, PTSD and sleep apnea. Initial EKG obtained shows widened QRS in V1 V2 V3. Patient denies any chest pain, shortness of breath, does have pain with left lateral EOM. Does have a small abrasion noted to top of his head and a small hematoma surrounding. No palpable depressed skull fracture. Related Data Home Medications Medication Instructions Recorded Confirmed aspirin [Aspir-81] 81 mg PO DAILY AM 10/16/12 11/23/19 nitroglycerin [Nitrostat] 0.4 mg SUBLINGUAL DIRECTED PRN 10/16/12 11/23/19 clonazepam 0.5 tab PO BID PRN tab-cap 04/10/16 11/23/19 dronabinol 5 mg PO BID PRN 06/02/16 11/23/19 oxycodone 2 tab PO Q4H PRN PRN 06/02/16 11/23/19 lisinopril 5 mg PO DAILY #5 tab-cap 05/19/17 11/23/19 Narcan 4 mg INTRANASAL PRN PRN 07/01/17 11/23/19 Sildenafil Citrate [Sildenafil] 20 mg PO TID PRN 07/01/17 11/23/19 gabapentin 600 mg tablet 1,200 mg PO BID tab 07/10/18 11/23/19 methadone 10 mg tablet See Rx Instructions .ROUTE 07/10/18 11/23/19 .COMPLEX tab mexiletine 200 mg capsule 200 mg PO BID 09/11/18 11/23/19 Spiriva with HandiHaler 1 cap INHALATION DAILY 07/03/19 11/23/19 spironolactone 12.5 mg PO DAILY 07/03/19 11/23/19 albuterol sulfate 90 mcg/actuation 2 puff IH Q6H PRN 07/15/19 11/23/19 aerosol inhaler ferrous gluconate 324 mg (38 mg 324 mg PO BID tab 07/15/19 11/23/19 iron) tablet metoprolol succinate 100 mg 100 mg PO HS 07/15/19 11/23/19 tablet,extended release 24 hr prasugrel 10 mg tablet 10 mg PO DAILY 07/15/19 11/23/19 torsemide 20 mg tablet 20 mg PO DAILY 07/15/19 11/23/19 ibuprofen 800 mg tablet 800 mg PO TID PRN #90 tab 04/08/20 06/21/20 atorvastatin 40 mg PO DAILY 11/23/19 11/23/19 omeprazole 20 mg PO DAILY 11/23/19 11/23/19 Previous Rx's Medication Instructions Recorded lisinopril 5 mg PO DAILY #5 tab-cap 05/19/17 ibuprofen 800 mg tablet 800 mg PO TID PRN #90 tab 09/10/19 Allergies Allergy/AdvReac Type Severity Reaction Status Date / Time ticagrelor [From Brilinta] AdvReac Severe Unverified 11/23/19 20:54 fluoxetine HCl [From Prozac] AdvReac Intermediate FELT AWFUL Unverified 11/23/19 20:54 duloxetine AdvReac Mild DOESN'T Unverified 11/23/19 20:54 FEEL WELL General Stated Complaint: AMS/LOC YANI: 3 Review of Systems Narrative: Constitutional: Negative for weight loss, alert and oriented, well groomed, normal body habitus, appears comfortable. HEENT: Denies blurry vision, nasal discharge, sore throat, trouble swallowing. Positive posterior head trauma small abrasion. Chest: Denies chest pain, palpitations, does have a history of CAD, internal cardiac defibrillator. Respiratory: Denies Shortness of breath, cough, hemoptysis. GI: Denies abdominal pain, nausea, vomiting, diarrhea, constipation. : Denies dysuria, hematuria, flank pain, rectal bleeding. Neuro: Denies blurry vision, weakness, or facial numbness. Positive dizziness with standing, positive syncope, positive headache. Hematologic: Denies easy bruising, intolerance to heat or cold, hair loss. All systems reviewed & are unremarkable except as noted in HPI and below PFSH Medical History Cardiac defibrillator in place (Acute) Cardiomyopathy (Chronic) Chronic back pain (Chronic) Chronic neck pain (Chronic) Chronic ulcer of right leg (Chronic) Cleft palate and cleft lip (Chronic) Congestive heart failure (Chronic) COPD (chronic obstructive pulmonary disease) (Chronic) Diabetes (Chronic) History of osteomyelitis (Inactive) Hx of myocardial infarction (Inactive) Hx pulmonary embolism (Inactive) Insomnia (Chronic) Internal derangement of right knee (Acute 07/01/19) Mitral regurgitation (Chronic) Peripheral neuropathy (Chronic) PTSD (post-traumatic stress disorder) (Chronic) Sleep apnea (Chronic) Social History Smoking/Tobacco Use Status: Current-Occasional Tobacco Type: e-cigarettes Tobacco: How many years used: 20 Alcohol Intake: never Drug use: Current Sobriety Substance use type: does not use Do you feel safe at home: Yes Do you feel safe in your relationship?: Yes Additional Social history: Not and no children. 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 No current Tobacco or EtOH. Prior history of illicit drugs, IVDA with Heroin. Exam Narrative Exam Narrative: Constitutional: Alert and oriented x3. Appears stated age. Normal body habitus. Head: Normocephalic, does have small abrasion to the top of his head and small hematoma surrounding. Eyes: Pupils PERRLA, Red reflex noted, EOM's intact. Eyelids symmetrical without lesions, discharge, or swelling. ENT: Bilateral TM's WNL, External ear normal to inspection, no mastoid TTP, swelling, or erythema, Nasal turbinates WNL, no nasal discharge. Normal dentition, Posterior pharynx WNL, no exudate. Chest: RRR, Normal S1, S2, distal pulses intact. Resp: Lungs clear to auscultation bilaterally, no wheezes, rales, or rhonchi. Musculoskeletal: 5/5 strength to all four extremities. Skin: Abrasion noted to top of head. Capillary refill less than 2 sec. Neurologic: Cranial nerves II-XII intact. Alert and oriented x 3. DTR's intact. No facial droop. Hematologic/Lymphatic: No ecchymosis, no lymphadenopathy. Course Vital Signs Vital signs: Vital Signs Temperature 36.7 C 11/23/19 20:41 Pulse 85 11/23/19 20:41 Respiratory Rate 20 11/23/19 20:41 Blood Pressure 98/61 L 11/23/19 20:41 Pulse Oximetry 96 11/23/19 20:41 Temperature 36.7 C 11/23/19 20:41 Temperature Source Skin 11/23/19 20:41 Pulse 85 11/23/19 20:41 Respiratory Rate 20 11/23/19 20:41 Respiratory Effort Non-Labored 11/23/19 20:53 Blood Pressure 98/61 L 11/23/19 20:41 Blood Pressure Position Sitting 11/23/19 20:41 Pulse Oximetry 96 11/23/19 20:41 Oxygen Delivery Method Room Air 11/23/19 20:41 Oxygen Flow Rate 0 11/23/19 20:41 Pain Level 7 11/23/19 20:41
[2019-11-23 21:27] LABS: Abs Immature Grans 0.03 k/cumm (0.0-0.09); Absolute Basophil Count 0.03 k/cumm (0.0-0.2); Absolute Eosinophil Count 0.19 k/cumm (0.0-0.7); Absolute Neutrophil Count 6.25 k/cumm (1.2-6.7); Basophils % 0.4; Eosinophils % 2.3; HCT 41.2 % (40.0-50.0); HGB 12.9 g/dL (13.5-17.5); Immature Grans % 0.4 %; Lymphocytes % 14.3; Mean Corp. HGB Concentration 31.3 g/dL (32.0-36.0); Mean Corpuscular Hemoglobin 25.2 pg (27.0-33.0); Mean Corpuscular Volume 80.5 fL (80-95); Monocytes % 8.3; Neutrophils % 74.3; Platelet Count 341 x1000/uL (130-400); RBC 5.12 m/cumm (4.50-6.00); RBC Distribution Width 22.4 % (11.8-14.1)
--- NOTE | 2019-11-23 21:38 | DI.VRAD_ITS ---
PROCEDURE INFORMATION: Exam: CT Head Without Contrast Exam date and time: 11/23/2019 9:03 PM Age: 59 years old Clinical indication: Injury or trauma; Injury history: Hit top of head on tree, syncope, R/O mass, fracture, ; initial encounter; Blunt trauma (contusions or hematomas); With loss of consciousness; Not specified; Injury date: 11/23/19; Injury details: PT states he feel like he is hearing something or a fullness in left ear and vision seems off TECHNIQUE: Imaging protocol: Computed tomography of the head without contrast. Radiation optimization: All CT scans at this facility use at least one of these dose optimization techniques: automated exposure control; mA and/or kV adjustment per patient size (includes targeted exams where dose is matched to clinical indication); or iterative reconstruction. COMPARISON: CT HEAD AND CSPINE W/O CONTRAST 01/08/2018 4:19 PM FINDINGS: The ventricles, sulci and basilar cisterns are normal for the patient's stated age. There is no evidence for acute infarct. There is no evidence for mass. There is no hemorrhage. There are no extra-axial fluid collections. There is no midline shift. The skull is intact. The visualized paranasal sinuses are well aerated. The mastoid air cells on the left are well aerated and the middle ear on the left appears normal. IMPRESSION: No evidence for acute intracranial injury. Dictated and Authenticated by: Anand Verma MD. Ordering:ANIKET Drake MD
[2019-11-23 21:46] LABS: Anisocytosis 2+; Diff Comment RBC Morph Reviewed
[2019-11-23 21:48] LABS: ALT 33 U/L (16-63); AST 42 U/L (15-37); Albumin 3.8 g/dL (3.4-5.0); Alkaline Phosphatase 127 U/L (46-116); Anion Gap 9.1 mmol/L (3-11); BUN 21 mg/dL (7-18); Bilirubin, Total 0.3 mg/dL (0.2-1.0); CO2 29.9 mmol/L (21.0-32.0); CREATININE 2.22 mg/dL (0.70-1.30); Calcium 9.2 mg/dL (8.5-10.1); Chloride 99 mmol/L (98-107); Estimated GFR 30.58 (mL/min/1.73m2); Glucose 118 mg/dL (74-106); Magnesium 2.1 mg/dL (1.8-2.4); Potassium 4.3 mmol/L (3.5-5.1); Sodium 138 mmol/L (136-145); Total Protein 8.8 g/dL (6.4-8.2)
[2019-11-23 21:57] LABS: Troponin I < 0.05 ng/mL (<0.06)
== END 2019-11-23 23:42 | disposition home or self-care (01) ==
PROVIDERS: Emergency Provider Registered Nurse Emergency; PCP Family Medicine
DX: R41.82 Altered mental status, unspecified (principal); S06.9X1A Unspecified intracranial injury with loss of consciousness of 30 minutes or less, initial encounter; S00.01XA Abrasion of scalp, initial encounter; W22.8XXA Striking against or struck by other objects, initial encounter; I50.9 Heart failure, unspecified; Z95.810 Presence of automatic (implantable) cardiac defibrillator; E11.9 Type 2 diabetes mellitus without complications; J44.9 Chronic obstructive pulmonary disease, unspecified; F17.290 Nicotine dependence, other tobacco product, uncomplicated
CPT/HCPCS: 36415; 80053; 80307; 93005; 99285; 70450; 81003; 83735; 84484; 85025; 93010

== ENCOUNTER 2019-12-04 11:59 | Outpatient (REF) | payer MEDICARE, MEDICAID, SELFPAY ==
[2019-12-04 19:06] LABS: Anion Gap 9.1 mmol/L (3-11); BUN 25 mg/dL (7-18); CO2 28.9 mmol/L (21.0-32.0); CREATININE 1.09 mg/dL (0.70-1.30); Calcium 9.1 mg/dL (8.5-10.1); Chloride 100 mmol/L (98-107); Glucose 140 mg/dL (74-106); Potassium 4.3 mmol/L (3.5-5.1); Sodium 138 mmol/L (136-145)
== END 2019-12-04 12:19 ==
LOC: NCHCN 11:59
PROVIDERS: PCP Family Medicine; Visit Provider Family Medicine
DX: I25.5 Ischemic cardiomyopathy (principal)
CPT/HCPCS: 80048

== ENCOUNTER 2019-12-09 00:48 | Outpatient (CLI) | payer MEDICARE, MEDICAID, SELFPAY ==
--- NOTE | 2019-12-09 | DI.US_ITS ---
APPROVED REPORT EXAM: Comprehensive 2D, Doppler, and color-flow Echocardiogram Patient Location: Out-Patient Traffic Or System Dispatcher: Santa Azevedo RDCS (AE) Indications: Cardiomyopathy Other Information Study Quality: Fair Conclusion The left ventricle is moderately dilated. Estimated ejection fraction is 30%. There is global hypok inesis The left atrium is moderately dilated. The right atrium and right ventricle are normal in size. Right ventricular systolic function is norm al Aortic valve is trileaflet and sclerotic without stenosis or regurgitation Mildly thickened mitral leaflets. There is moderate to severe mitral regurgitation There is mild tricuspid regurgitation. Estimated right ventricular systolic pressure is normal. The tricuspid and pulmonic valves are structurally normal There is no significant pulmonic regurgitation Wall motion Left Ventricle Left ventricle is moderately dilated. Left ventricular systolic function is severely decreased. There is normal left ventricular wall thickness. Global hypokinesis There is no ventricular septal defect visualized. LVEF is 30%. Right Ventricle The right ventricle is normal size. The RVSP is 23.6 mmHg. The right ventricular systolic function is normal. Atria Left atrium is moderately dilated. The right atrium size is normal. The interatrial septum is intact with no evidence for an atrial septal defect. Aortic Valve The Aortic valve is sclerotic. Aortic valve is trileaflet. There is no aortic valvular stenosis. No a ortic regurgitation is present. Mitral Valve Mild mitral annular calcification. No evidence of mitral valve stenosis. Moderate to severe mitral re gurgitation. Tricuspid Valve The tricuspid valve is normal in structure. There is no tricuspid valve stenosis. Mild tricuspid regu rgitation. Pulmonic Valve The pulmonary valve is normal in structure. There is no pulmonic valvular stenosis. There is no pulmo el valvular regurgitation. Great Vessels The aortic root is normal in size. The ascending aorta is normal in size. Aortic arch is normal in ca liber. Due to poor image quality, the IVC could not be assessed. Pericardium There is no pericardial effusion. 2D Dimensions IVSD d PLAX 0.91 cm M: 0.6-1.2 LV Vol A2C d MOD 173.5 mL LVPW d PLAX 0.81 cm M: 0.6 - 1.2 LV Vol A4C d MOD 177.0 mL LVID d PLAX 6.91 cm M: 4.2 - 5.8 LA vol/ BSA A2C s A-L 40.7 mL/m2 LVDs 5.70 cm M: 2.5 - 4.0 LA vol/ BSA A4C s A-L 33.8 mL/m2 Ao Root d 2.96 cm M: 3.1 - 3.7 LA Vol/ BSA Biplane s A-L 38.6 mL/m2 RA Area A4C 17.72 cm2 LA Area A4C s MOD 23.96 cm2 RA Vol/ BSA A4C s A-L 22.0 mL/m2 LA Area A2C s MOD 25.25 cm2 Ao Asc Diam d 3.44 cm M: 2.6 - 3.4 LV EF A4C MOD 29.5 % LV EF Teichholz 34.7 % LV EF A2C MOD 30.0 % LVEF (Bell's) 30.54 % M: 52 - 72 LV EF Biplane MOD 30.5 % LV Volume 131.02 mL M: 62 - 150 SV 55.98 mL LV Volume Index 56.47 mL/m2 M: 34 - 74 SV Index 24.05 mL/m2 LV Vol Biplane MOD 183.3 mL FS 17.05 % M-Mode TAPSE 2.20 cm (M/F) >1.7 LV Diastology MV E' medial 0.068 (>0.07 m/s) E/A Ratio 1.2 LV E/e MED 10.55 (<14) MV E Vmax 0.73 (0.4-1.3 m/s) MV E' lateral 0.109 (>0.1 m/s) MV A Vmax 0.60 (0.4-1.3 m/s) LV E/e LAT 6.65 (<14) MV E/A Ratio 1.19 MV E/E' medial 10.60 MV E/E' lateral 6.68 Aortic Valve LVOT Area 3.57 cm2 AoV Area Vmax 3.34 cm2 LVOT Vmax 1.27 m/s AoV Area/ BSA (Vmax) 1.43 cm2/m2 LVOT Mean Elvis. 0.95 m/s PAYTON Mean Elvis. 3.25 cm2 LVOT Peak Grad 6.5 mmHg PAYTON Mean Elvis. Index 1.40 cm2/m2 LVOT Mean Grad 3.9 mmHg LVOT VTI 0.272 m LVOT Diam s 2.10 cm AoV Vmax 1.36 m/s Velocity Ratio 0.93 AoV Mean Elvis. 1.04 m/s AoV Peak Grad 7.4 mmHg LVOT SV 96.99 mL AoV Mean Grad 4.6 mmHg AoV VTI 0.273 m AoV Area VTI 3.56 cm2 AoV Area/ BSA (VTI) 1.53 cm/m2 Mitral Valve MV DT 232 (160-240 msec) MR Vmax 4.50 m/s MV PHT 67 msec MR VTI 1.642 m MV Area PHT 3.27 cm2 MR Peak Grad 80.9 mmHg MR Mean Grad 51.7 mmHg Pulmonary Valve PV Vmax 0.81 (0.5-1.5 m/s) RVOT Peak Gr. 1.58 mmHg PV Peak Grad 2.6 mmHg RVOT Mean Gr. 0.95 mmHg PV Mean Grad 1.6 mmHg RVOT VTI 0.150 m PV VTI 0.187 m RVOT Vmax 0.63 m/s Tricuspid Valve TR Peak Grad 20.5 mmHg TR Vmax 2.27 m/s RA Pressure 3.00 mmHg RVSP (TR) 23.6 mmHg
== END 2019-12-09 01:08 ==
PROVIDERS: PCP Family Medicine; Visit Provider Internal Medicine Interventional Cardiology
DX: I42.9 Cardiomyopathy, unspecified (principal); I25.10 Atherosclerotic heart disease of native coronary artery without angina pectoris; I34.0 Nonrheumatic mitral (valve) insufficiency
CPT/HCPCS: 93306

== ENCOUNTER 2019-12-12 02:40 | Outpatient (CLI) | payer MEDICARE, MEDICAID, SELFPAY ==
--- NOTE | 2019-12-12 13:02 | DI.RAD_ITS ---
EXAM: XR TIB/FIB RT CLINICAL HISTORY: ULCER CHRONIC LOWER LIMB, L97.949. TECHNIQUE: 2D digital imaging was performed. COMPARISON: CR,XR XR KNEE RT 3V AP,LAT,DANIA from 07/03/2019 FINDINGS: BONES: No acute fracture is present. No bony destructive lesion is seen. Degenerative changes are not ed at the knee and ankle. A screw is seen in the distal tibia. There is an old healed fracture defo rmity.. SOFT TISSUE: No foreign body IMPRESSION: Postsurgical and degenerative changes. No plain film evidence of osteomyelitis. DATA REPOSITORY: RADIATION DOSE DELIVERED:
== END 2019-12-12 03:00 ==
PROVIDERS: PCP Family Medicine; Visit Provider Family Medicine
DX: L97.911 Non-pressure chronic ulcer of unspecified part of right lower leg limited to breakdown of skin (principal); M17.11 Unilateral primary osteoarthritis, right knee; M19.071 Primary osteoarthritis, right ankle and foot
CPT/HCPCS: 73590

== ENCOUNTER 2019-12-24 20:03 | Emergency (ER) | payer MEDICARE, MEDICAID, SELFPAY ==
[2019-12-24 20:07] VITALS: BP 113/65; PULSE 80; RESP 16; TEMP 36.2; O2SAT 95
--- NOTE | 2019-12-24 20:23 | ED.GENADUL_ITS ---
Discharge Plan Disposition Patient Disposition: HOME Condition: Good Discharge Details Chief Complaint: EarProblem Clinical Impression: Otorrhea, Otitis media Primary Care Provider: Farida Hall V ED Provider: Korey Rosado Home Meds and New Rx's Prescriptions: New amoxicillin-pot clavulanate [Augmentin] 875-125 mg tablet 1 tab PO BID Qty: 20 RF: 0 No Action torsemide 20 mg tablet 20 mg PO DAILY RF: 0 prasugrel 10 mg tablet 10 mg PO DAILY RF: 0 metoprolol succinate [Toprol XL] 100 mg tablet extended release 24 hr 100 mg PO HS RF: 0 albuterol sulfate [ProAir HFA] 90 mcg/actuation HFA aerosol inhaler 2 puff IH Q6H PRNRF: 0 ferrous gluconate 324 mg (38 mg iron) tablet 324 mg PO BID RF: 0 mexiletine 200 mg capsule 200 mg PO BID RF: 0 clonazepam 1 MG tablet,disintegrating 0.5 tab PO BID PRNRF: 0 gabapentin 600 mg tablet 1,200 mg PO BID RF: 0 methadone [Dolophine] 10 mg tablet See Rx Instructions .ROUTE .COMPLEX RF: 0 ibuprofen 800 mg tablet 800 mg PO TID PRN (Reason: pain) Qty: 90 RF: 1 aspirin [Aspir-81] 81 MG tablet,delayed release (DR/EC) 81 mg PO DAILY AM RF: 0 nitroglycerin [Nitrostat] 0.4 MG tablet, sublingual 0.4 mg Sublingual DIRECTED PRNRF: 0 oxycodone 20 MG tablet 2 tab PO Q4H PRN PRNRF: 0 dronabinol 5 MG capsule 5 mg PO BID PRNRF: 0 Narcan 4 MG spray,non-aerosol 4 mg Intranasal PRN PRNRF: 0 Sildenafil Citrate [Sildenafil] 20 MG tablet 20 mg PO TID PRNRF: 0 omeprazole 20 mg capsule,delayed release(DR/EC) 20 mg PO DAILY RF: 0 atorvastatin 40 MG tablet 40 mg PO DAILY RF: 0 lisinopril 5 MG tablet 5 mg PO DAILY Qty: 5 RF: 0 spironolactone 25 mg Tablet 12.5 mg PO DAILY RF: 0 Spiriva with HandiHaler 18 mcg Capsule, W/Inhalation Device 1 cap INHALATION DAILY RF: 0 Discharge Instructions Instructions: Ear Infection (ED) Additional Instructions: Please take the antibiotic Augmentin as directed. It has amoxicillin plus an additional agent for added effectiveness. Please take Tylenol 1000 mg every 6 hours as needed for pain. If you notice any worsening of your symptoms, or any new symptoms such as vomiting, diarrhea, fever, chills, shortness of breath, chest pain, numbness, weakness, or fainting , please return immediately to the emergency department for reevaluation. Please follow up with your primary care provider as soon as possible for reassessment and reevaluation. As always, it was a pleasure participating in your medical care today. Referrals: Farida Hall MD [Primary Care Provider] - Medical Decision Making 59-year-old male with a past medical history of a cleft palate, previous surgery, chronic ruptured right tympanic membrane, with chronic recurrent right-sided ear infections presents today for complaint of ear infection. Patient states that he has had mild clear drainage from the right ear for the past few days, however over the last 24 to 48 hours it is become milky in color. Pain is slightly increased. He denies headache fever chills. He denies any other complaints. He denies any other modifying factors at this time. Exam demonstrates mild to moderate otitis media on the right-hand side with effusion, atypical tympanic membrane, suggestive of chronic perforation. Will give Augmentin for treatment. Symptoms inconsistent with mastoiditis or systemic illness. Discussed red flags which to return. I have extensively reviewed the treatment plan and discharge instructions with the patient. I have addressed all patient concerns at this time. The patient was made aware of what symptoms to monitor for that would warrant a return to the emergency department. Discussed the plan with the patient, they demonstrate verbal understanding and agreement with our assessment and plan at this time. HPI General Date/Time Provider Initiated Documentation: 12/24/19 20:16 . HPI Narrative: 59-year-old male with a past medical history of a cleft palate, previous surgery, chronic ruptured right tympanic membrane, with chronic recurrent right-sided ear infections presents today for complaint of ear infection. Patient states that he has had mild clear drainage from the right ear for the past few days, however over the last 24 to 48 hours it is become milky in color. Pain is slightly increased. He denies headache fever chills. He denies any other complaints. He denies any other modifying factors at this time. Related Data Home Medications Medication Instructions Recorded Confirmed aspirin [Aspir-81] 81 mg PO DAILY AM 10/16/12 11/23/19 nitroglycerin [Nitrostat] 0.4 mg SUBLINGUAL DIRECTED PRN 10/16/12 11/23/19 clonazepam 0.5 tab PO BID PRN tab-cap 04/10/16 11/23/19 dronabinol 5 mg PO BID PRN 06/02/16 11/23/19 oxycodone 2 tab PO Q4H PRN PRN 06/02/16 11/23/19 lisinopril 5 mg PO DAILY #5 tab-cap 05/19/17 11/23/19 Narcan 4 mg INTRANASAL PRN PRN 07/01/17 11/23/19 Sildenafil Citrate [Sildenafil] 20 mg PO TID PRN 07/01/17 11/23/19 gabapentin 600 mg tablet 1,200 mg PO BID tab 07/10/18 11/23/19 methadone 10 mg tablet See Rx Instructions .ROUTE 07/10/18 11/23/19 .COMPLEX tab mexiletine 200 mg capsule 200 mg PO BID 09/11/18 11/23/19 Spiriva with HandiHaler 1 cap INHALATION DAILY 07/03/19 11/23/19 spironolactone 12.5 mg PO DAILY 07/03/19 11/23/19 albuterol sulfate 90 mcg/actuation 2 puff IH Q6H PRN 07/15/19 11/23/19 aerosol inhaler ferrous gluconate 324 mg (38 mg 324 mg PO BID tab 07/15/19 11/23/19 iron) tablet metoprolol succinate 100 mg 100 mg PO HS 07/15/19 11/23/19 tablet,extended release 24 hr prasugrel 10 mg tablet 10 mg PO DAILY 07/15/19 11/23/19 torsemide 20 mg tablet 20 mg PO DAILY 07/15/19 11/23/19 ibuprofen 800 mg tablet 800 mg PO TID PRN #90 tab 09/10/19 11/23/19 atorvastatin 40 mg PO DAILY 11/23/19 11/23/19 omeprazole 20 mg PO DAILY 11/23/19 11/23/19 amoxicillin-pot clavulanate 1 tab PO BID #20 tab 12/24/19 [Augmentin] Previous Rx's Medication Instructions Recorded lisinopril 5 mg PO DAILY #5 tab-cap 05/19/17 ibuprofen 800 mg tablet 800 mg PO TID PRN #90 tab 09/10/19 amoxicillin-pot clavulanate 1 tab PO BID #20 tab 12/24/19 [Augmentin] Allergies Allergy/AdvReac Type Severity Reaction Status Date / Time ticagrelor [From Brilinta] AdvReac Severe Unverified 12/24/19 20:09 fluoxetine HCl [From Prozac] AdvReac Intermediate FELT AWFUL Unverified 12/24/19 20:09 duloxetine AdvReac Mild DOESN'T Unverified 12/24/19 20:09 FEEL WELL General Stated Complaint: EarProblem YANI: 5 Review of Systems All systems reviewed & are unremarkable except as noted in HPI and below PFSH Medical History Cardiac defibrillator in place (Acute) Cardiomyopathy (Chronic) Chronic back pain (Chronic) Chronic neck pain (Chronic) Chronic ulcer of right leg (Chronic) Cleft palate and cleft lip (Chronic) Congestive heart failure (Chronic) COPD (chronic obstructive pulmonary disease) (Chronic) Diabetes (Chronic) History of osteomyelitis (Inactive) Hx of myocardial infarction (Inactive) Hx pulmonary embolism (Inactive) Insomnia (Chronic) Internal derangement of right knee (Acute 07/01/19) Mitral regurgitation (Chronic) Peripheral neuropathy (Chronic) PTSD (post-traumatic stress disorder) (Chronic) Sleep apnea (Chronic) Social History Smoking/Tobacco Use Status: Current-Occasional Tobacco Type: e-cigarettes Tobacco: How many years used: 20 Alcohol Intake: never Drug use: Current Sobriety Substance use type: does not use Do you feel safe at home: Yes Do you feel safe in your relationship?: Yes Additional Social history: Not and no children. 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 No current Tobacco or EtOH. Prior history of illicit drugs, IVDA with Heroin. Exam Narrative Exam Narrative: 1.Const: Well-nourished, Well-developed, appearing stated age 2.Eyes: PERRL, no conjunctival injection, and symmetrical lids. 3.ENT: Atraumatic external nose and ears. Moist MM. Neck: Symmetric, trachea midline, No thyromegaly. The patient's left ear canal and tympanic membrane are normal, right tympanic membrane slightly atypical in nature, mild purulent effusion is noted. Mild redness is present. No tenderness over the mastoid, or other areas of the neck or head. No swelling. Patient demonstrates good movement of cervical neck. There is no nuchal rigidity, no nuchal tenderness. Patient is able to flex the neck without any difficulty or significant pain. Negative Kernig's and Brudzinski sign. 4.CVS: +S1/S2, No murmurs or gallops. Peripheral pulses 2+ and equal in all extremities. Brisk capillary refill in all extremities. 5.RESP: Unlabored respiratory effort. Clear to auscultation bilaterally. No wheezes rales or rhonchi 6.GI: Soft, Nontender/Nondistended, No hepatosplenomegaly. No guarding or rebound. 7.MSK: Normocephalic/Atraumatic, Extremities w/o deformity or ttp No cyanosis or clubbing, Normal movement of all extremities 8.Skin: Warm, Dry. No rashes or lesions. 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 Sensation grossly intact, no focal neurologic deficits. 10.Psych: (AAO) x3. Appropriate mood and affect Course Vital Signs Vital signs: Vital Signs Temperature 36.2 C L 12/24/19 20:07 Pulse 80 12/24/19 20:07 Respiratory Rate 16 12/24/19 20:07 Blood Pressure 113/65 12/24/19 20:07 Pulse Oximetry 95 12/24/19 20:07 Temperature 36.2 C L 12/24/19 20:07 Temperature Source Temporal Artery Scan 12/24/19 20:07 Pulse 80 12/24/19 20:07 Respiratory Rate 16 12/24/19 20:07 Blood Pressure 113/65 12/24/19 20:07 Blood Pressure Position Sitting 12/24/19 20:07 Pulse Oximetry 95 12/24/19 20:07 Oxygen Delivery Method Room Air 12/24/19 20:07 Oxygen Flow Rate 0 12/24/19 20:07 Pain Level 8 12/24/19 20:07
[2019-12-24] MEDS: Amox. 875/Clav. 125, 2 TABS/BTL 1 TAB PO (20:28)
== END 2019-12-24 20:33 | disposition home or self-care (01) ==
LOC: ER 20:24
PROVIDERS: Emergency Provider Student in an Organized Health Care Education/Training Program; PCP Family Medicine
DX: H66.001 Acute suppurative otitis media without spontaneous rupture of ear drum, right ear (principal); H92.11 Otorrhea, right ear; J44.9 Chronic obstructive pulmonary disease, unspecified; F17.210 Nicotine dependence, cigarettes, uncomplicated; E11.9 Type 2 diabetes mellitus without complications
CPT/HCPCS: 99283

== ENCOUNTER 2020-01-29 21:19 | Outpatient (REF) | payer MEDICARE, MEDICAID, SELFPAY ==
[2020-01-29 19:45] LABS: Anion Gap 9.4 mmol/L (3-11); BUN 12 mg/dL (7-18); CO2 28.6 mmol/L (21.0-32.0); CREATININE 0.94 mg/dL (0.70-1.30); Chloride 102 mmol/L (98-107); Glucose 96 mg/dL (74-106); Potassium 4.3 mmol/L (3.5-5.1); Sodium 140 mmol/L (136-145)
== END 2020-01-29 21:39 ==
LOC: NCHCN 21:19
PROVIDERS: PCP Family Medicine; Visit Provider Family Medicine
DX: E11.9 Type 2 diabetes mellitus without complications (principal); I50.9 Heart failure, unspecified; L97.911 Non-pressure chronic ulcer of unspecified part of right lower leg limited to breakdown of skin
CPT/HCPCS: 80048; 87077; 83036; 87070; 87186; 87205

== ENCOUNTER 2020-05-21 18:12 | Outpatient (REF) | payer OTHER, MEDICAID, SELFPAY ==
[2020-05-28 11:15] LABS: Amphetamine Negative ng/mL (Cutoff: 25); Amphetamines Interpretation Negative.; MDA (Ecstasy Metabolite) Negative ng/mL (Cutoff: 25); MDMA (Ecstasy) Negative ng/mL (Cutoff: 25); Methamphetamine Negative ng/mL (Cutoff: 25); Phentermine Negative ng/mL (Cutoff: 25); Pseudoephedrine/Ephedrine Negative ng/mL (Cutoff: 25)
== END 2020-05-21 18:32 ==
LOC: NCHCN 18:12
PROVIDERS: PCP Family Medicine; Visit Provider Family Medicine
DX: Z79.899 Other long term (current) drug therapy (principal); Z51.81 Encounter for therapeutic drug level monitoring; I25.5 Ischemic cardiomyopathy
CPT/HCPCS: 80324

== ENCOUNTER 2020-06-17 12:10 | Outpatient (REF) | payer OTHER, MEDICAID, SELFPAY ==
[2020-06-22 12:38] LABS: Amphetamine Negative ng/mL (Cutoff: 25); Amphetamines Interpretation Negative.; MDA (Ecstasy Metabolite) Negative ng/mL (Cutoff: 25); MDMA (Ecstasy) Negative ng/mL (Cutoff: 25); Methamphetamine Negative ng/mL (Cutoff: 25); Phentermine Negative ng/mL (Cutoff: 25); Pseudoephedrine/Ephedrine Negative ng/mL (Cutoff: 25)
[2020-06-23 11:14] LABS: Codeine Negative ng/mL (Cutoff: 25); Dihydrocodeine Negative ng/mL (Cutoff: 25); Hydrocodone Negative ng/mL (Cutoff: 25); Hydromorphone Negative ng/mL (Cutoff: 25); Morphine Negative ng/mL (Cutoff: 25); Naloxone Negative ng/mL (Cutoff: 25); Norhydrocodone Negative ng/mL (Cutoff: 25); Noroxycodone Negative ng/mL (Cutoff: 25); Noroxymorphone Negative ng/mL (Cutoff: 25); Opiates Interpretation Negative.
[2020-06-23 16:15] LABS: Buprenorphine Negative; Norbuprenorphine Negative
[2020-06-24 13:21] LABS: Lorazepam Negative ng/mL (Cutoff: 10); Temazepam 110 ng/mL
[2020-06-24 13:23] LABS: Alpha-OH-Triazolam Negative ng/mL (Cutoff: 10)
[2020-06-24 13:24] LABS: Alpha OH-Alprazolam Negative ng/mL (Cutoff: 10)
[2020-06-24 13:25] LABS: 7-NH-Flunitrazepam Negative ng/mL (Cutoff: 10)
[2020-06-24 13:26] LABS: 2-OH-Ethyl-Flurazepam Negative ng/mL (Cutoff: 10); 7-NH-Clonazepam 302 ng/mL (Cutoff: 10)
[2020-06-24 13:38] LABS: Benzodiazepines Interpretation See Comments
== END 2020-06-17 12:30 ==
LOC: NCHCN 12:10
PROVIDERS: PCP Family Medicine; Visit Provider Family Medicine
DX: R82.5 Elevated urine levels of drugs, medicaments and biological substances (principal)
CPT/HCPCS: 80307; 80324; 80361; 80362; 80346

== ENCOUNTER 2020-07-08 | Outpatient (REF) | payer OTHER, MEDICAID, SELFPAY ==
[2020-07-15 06:12] LABS: Amphetamine Negative ng/mL (Cutoff: 25); Amphetamines Interpretation Negative.; MDA (Ecstasy Metabolite) Negative ng/mL (Cutoff: 25); MDMA (Ecstasy) Negative ng/mL (Cutoff: 25); Methamphetamine Negative ng/mL (Cutoff: 25); Phentermine Negative ng/mL (Cutoff: 25); Pseudoephedrine/Ephedrine Negative ng/mL (Cutoff: 25)
== END 2020-07-09 00:41 | disposition home or self-care (01) ==
LOC: NCHCN
PROVIDERS: PCP Family Medicine; Visit Provider Family Medicine
DX: R82.5 Elevated urine levels of drugs, medicaments and biological substances (principal)
CPT/HCPCS: 80324

== ENCOUNTER 2020-08-12 15:18 | Outpatient (REF) | payer OTHER, MEDICAID, SELFPAY ==
[2020-08-12 17:29] LABS: HGB 12.1 g/dL (13.5-17.5); MCH 28.1 pg (27.0-33.0); MCV 90.7 fL (80-95); MPV 10.8 fL (8.0-11.0); Platelet Count 216 10^3/uL (130-400); RDW 15.7 % (11.8-14.1); RDW-SD 52.8 fL; WBC 4.79 10^3/uL (4.4-10.8)
[2020-08-12 18:14] LABS: Hemoglobin A1C 5.5 % (<5.7)
[2020-08-12 18:26] LABS: ALT 27 U/L (16-63); AST 24 U/L (15-37); Anion Gap 8.6 mmol/L (3-11); BUN 13 mg/dL (7-18); CO2 27.4 mmol/L (21.0-32.0); Calcium 8.8 mg/dL (8.5-10.1); Chloride 105 mmol/L (98-107); Glucose 126 mg/dL (74-106); HDL Cholesterol 47 mg/dL (40-60); LDL CHOLESTEROL 96 mg/dL (<100); Potassium 3.9 mmol/L (3.5-5.1); Sodium 141 mmol/L (136-145)
[2020-08-12 18:36] LABS: Vitamin D 25 Total 14.8 ng/ml (30-100)
[2020-08-12 18:57] LABS: Creatine Kinase 130 U/L (39-308)
[2020-08-17 12:37] LABS: Amphetamines Interpretation Positive.; MDA (Ecstasy Metabolite) Negative ng/mL (Cutoff: 25); MDMA (Ecstasy) Negative ng/mL (Cutoff: 25); Methamphetamine 124 ng/mL (Cutoff: 25); Phentermine Negative ng/mL (Cutoff: 25); Pseudoephedrine/Ephedrine Negative ng/mL (Cutoff: 25)
[2020-08-18 16:42] LABS: 2-OH-Ethyl-Flurazepam Negative ng/mL (Cutoff: 10); 7-NH-Clonazepam 1794 ng/mL (Cutoff: 10); 7-NH-Flunitrazepam Negative ng/mL (Cutoff: 10); Alpha OH-Alprazolam Negative ng/mL (Cutoff: 10); Alpha-OH Midazolam Negative ng/mL (Cutoff: 10); Alpha-OH-Triazolam Negative ng/mL (Cutoff: 10); Alprazolam Negative ng/mL (Cutoff: 10); Benzodiazepines Interpretation Positive.; Chlordiazepoxide Negative ng/mL (Cutoff: 10); Clobazam Negative ng/mL (Cutoff: 10); Diazepam Negative ng/mL (Cutoff: 10); Flurazepam Negative ng/mL (Cutoff: 10); Lorazepam Negative ng/mL (Cutoff: 10); Midazolam Negative ng/mL (Cutoff: 10); N-Desmethylclobazam Negative ng/mL (Cutoff: 10); Prazepam Negative ng/mL (Cutoff: 10); Temazepam 60 ng/mL (Cutoff: 10); Triazolam Negative ng/mL (Cutoff: 10); Zolpidem Carboxylic acid Negative ng/mL (Cutoff: 10)
== END 2020-08-12 15:19 | disposition home or self-care (01) ==
LOC: NCHCN 15:18
PROVIDERS: PCP Family Medicine; Visit Provider Nurse Practitioner Family
DX: I25.10 Atherosclerotic heart disease of native coronary artery without angina pectoris (principal); I48.0 Paroxysmal atrial fibrillation; N50.811 Right testicular pain; M54.89 Other dorsalgia; G89.29 Other chronic pain; E11.9 Type 2 diabetes mellitus without complications; D64.9 Anemia, unspecified; Z79.899 Other long term (current) drug therapy; M25.571 Pain in right ankle and joints of right foot
CPT/HCPCS: 80048; 80324; 82306; 82550; 83721; 85027; 80346; 83036; 83718; 84443; 84450; 84460

== ENCOUNTER 2020-08-17 01:11 | Outpatient (CLI) | payer OTHER, MEDICAID, SELFPAY ==
--- NOTE | 2020-08-17 | DI.RAD_ITS ---
EXAM: XR ANKLE RT COMPLETE CLINICAL HISTORY: RT ANKLE PAIN, M25.571, FELL, SLIGHT SWELLING,H/O ANKLE SURGERY TECHNIQUE: COMPARISON: No exams were available for comparison FINDINGS: Three views were obtained. There is a fixation screw transfixing the distal tibia. The ankle mortis e appears well maintained. There are degenerative changes at the tibiotalar and talofibular joints w ith associated flattening of the contour of the articular surface of the distal tibia the talus. Mod erate marginal osteophytes noted. Subtalar joints appear fairly well maintained. No evidence of acute fracture. IMPRESSION: RADIATION DOSE DELIVERED: Total DLP
--- NOTE | 2020-08-17 | DI.CT_ITS ---
EXAM: CT LOWER EXTREMITY RT WO CLINICAL HISTORY: CHRONIC BACK PAIN, M54.89,PREV MRI SHOWED FLUID COLLECTION RT HIP JOINT CAP TECHNIQUE: COMPARISON: CR LUMBAR SPINE COMPLETE from 02/01/2017 CT CHEST FOR PULMONARY EMBOLUS from 05/04/2017 CR XR TIB/FIB RT from 12/12/2019 FINDINGS: CT examination of the right hip was performed. The urinary bladder appears distended. No gross pelv ic or inguinal adenopathy. Note is made deformity of the right iliac wing which is chronic, no duval e from prior radiographs January 2017. The right hip joint shows mildly narrowed cartilaginous joint space. Mild subchondral cyst formation of the acetabulum noted. Mild marginal osteophytes the aceta bulum. Subcortical cysts are also noted at the anterior aspect of femoral neck. No gross soft tissu e fluid collection identified. IMPRESSION: Moderate degenerative changes of right hip. RADIATION DOSE DELIVERED: 306.08mGy.cm Total DLP
== END 2020-08-17 01:31 ==
PROVIDERS: PCP Family Medicine; Visit Provider Nurse Practitioner Family
DX: M25.571 Pain in right ankle and joints of right foot (principal); M16.11 Unilateral primary osteoarthritis, right hip
CPT/HCPCS: 73610; 73700

== ENCOUNTER 2020-08-27 10:53 | Outpatient (REF) | payer OTHER, MEDICAID, SELFPAY ==
[2020-09-01 11:23] LABS: Codeine Negative ng/mL (Cutoff: 25); Dihydrocodeine Negative ng/mL (Cutoff: 25); Hydrocodone Negative ng/mL (Cutoff: 25); Hydromorphone Negative ng/mL (Cutoff: 25); Morphine Negative ng/mL (Cutoff: 25); Naloxone Negative ng/mL (Cutoff: 25); Norhydrocodone Negative ng/mL (Cutoff: 25); Noroxycodone 586 ng/mL (Cutoff: 25); Noroxymorphone Negative ng/mL (Cutoff: 25); Opiates Interpretation Positive.
[2020-09-01 11:51] LABS: MDA (Ecstasy Metabolite) Negative ng/mL (Cutoff: 25); MDMA (Ecstasy) Negative ng/mL (Cutoff: 25); Methamphetamine Negative ng/mL (Cutoff: 25); Phentermine Negative ng/mL (Cutoff: 25); Pseudoephedrine/Ephedrine Negative ng/mL (Cutoff: 25)
[2020-09-02 20:15] LABS: 2-OH-Ethyl-Flurazepam Negative ng/mL (Cutoff: 10); 7-NH-Clonazepam 6107 ng/mL (Cutoff: 10); 7-NH-Flunitrazepam Negative ng/mL (Cutoff: 10); Alpha OH-Alprazolam Negative ng/mL (Cutoff: 10); Alpha-OH Midazolam Negative ng/mL (Cutoff: 10); Alpha-OH-Triazolam Negative ng/mL (Cutoff: 10); Alprazolam Negative ng/mL (Cutoff: 10); Benzodiazepines Interpretation Positive.; Chlordiazepoxide Negative ng/mL (Cutoff: 10); Clobazam Negative ng/mL (Cutoff: 10); Clonazepam 31 ng/mL (Cutoff: 10); Diazepam Negative ng/mL (Cutoff: 10); Flurazepam Negative ng/mL (Cutoff: 10); Lorazepam Negative ng/mL (Cutoff: 10); Midazolam Negative ng/mL (Cutoff: 10); N-Desmethylclobazam Negative ng/mL (Cutoff: 10); Prazepam Negative ng/mL (Cutoff: 10); Temazepam 23 ng/mL (Cutoff: 10); Triazolam Negative ng/mL (Cutoff: 10); Zolpidem Carboxylic acid Negative ng/mL (Cutoff: 10)
[2020-09-04 04:24] LABS: EDDP-by GC-MS 33660 ng/mL (Cutoff: 100); Methadone Interpretation Positive.; Methadone-by GC-MS 11183 ng/mL (Cutoff: 100)
== END 2020-08-27 10:54 | disposition home or self-care (01) ==
LOC: NCHCN 10:53
PROVIDERS: PCP Family Medicine; Visit Provider Family Medicine
DX: M54.89 Other dorsalgia (principal); G89.29 Other chronic pain; Z79.899 Other long term (current) drug therapy
CPT/HCPCS: 80324; 80361; 80362; 80346; 80358

== ENCOUNTER 2020-09-03 09:47 | Emergency (ER) | payer OTHER, MEDICAID, SELFPAY ==
[2020-09-03] VITALS (63 sets, daily range): BP systolic 101–137; BP diastolic 56–113; PULSE 52–102; RESP 0–34; TEMP 36.5; O2SAT 80–96
--- NOTE | 2020-09-03 09:45 | RT.EKG_ITS ---
APPROVED REPORT Exam: Resting ECG Patient Location: E HR:95 bpm ECG Measurements Heart Rate 95 AXIS GA 176 P 96 QRSd 147 QRS -72 QT 427 T 110 QTc 537 Conclusion Sinus rhythm..non diagnostic due to poor baseline
--- NOTE | 2020-09-03 09:45 | RT.EKG_ITS ---
APPROVED REPORT Exam: Resting ECG Patient Location: E HR:91 bpm ECG Measurements Heart Rate 91 AXIS TN 162 P 58 QRSd 129 QRS -43 QT 367 T 137 QTc 450 Conclusion Sinus rhythm. Nonspecific IVCD with LAD. Nonspecific T abnormalities, lateral leads.
--- NOTE | 2020-09-03 10:00 | DI.RAD_ITS ---
EXAM: XR PORTABLE CHEST AP CLINICAL HISTORY: SOB, hx CAD TECHNIQUE: COMPARISON: CT CHEST FOR PULMONARY EMBOLUS from 05/04/2017 CR XR CHEST 2V PA LATERAL from 02/18/2019 CR,XR XR CHEST 2V PA LATERAL from 04/16/2019 FINDINGS: Portable AP chest at 1100 hours. Heart is mildly enlarged. There is apparent right pleural effusion . Left mid lung calcified granulomas again noted as seen on multiple prior studies. No focal acute consolidation. No gross pulmonary edema. IMPRESSION: Cardiomegaly and right pleural effusion, little interval change in appearance from prior chest film o f April 2019. RADIATION DOSE DELIVERED: Total DLP
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
[2020-09-03] MEDS: Aspirin 81 MG CHEW 162 MG PO (10:22)
[2020-09-03] MEDS: Furosemide 100 MG/10 ML VIAL 80 MG IVP (10:29)
[2020-09-03] MEDS: Normal Saline Flush 10 ML SYR IVP (10:31)
[2020-09-03 10:42] LABS: Abs Immature Grans 0.04 10^3/uL (0.0-0.06); Absolute Basophil Count 0.02 10^3/uL (0.0-0.2); Absolute Eosinophil Count 0.02 10^3/uL (0.0-0.7); Absolute Monocyte Count 0.85 10^3/uL (0.1-0.8); Absolute Neutrophil Count 8.26 10^3/uL (1.2-6.7); Basophils % 0.2; Eosinophils % 0.2; HCT 39.1 % (40.0-50.0); Immature Grans % 0.4; Lymphocytes % 6.1; MCH 28.1 pg (27.0-33.0); MCHC 30.7 % (32.0-36.0); MCV 91.6 fL (80-95); MPV 10.3 fL (8.0-11.0); Monocytes % 8.7; Neutrophils % 84.4; Nucleated RBC 0 %; Platelet Count 305 10^3/uL (130-400); RBC 4.27 10^6/uL (4.36-5.78); RDW 15.9 % (11.8-14.1); RDW-SD 52.7 fL; WBC 9.79 10^3/uL (4.4-10.8)
[2020-09-03 11:03] LABS: INR 1.2 (0.9-1.1); PTT Activated 24.9 sec (21.0-27.5); Prothrombin Time 11.9 sec (9.3-11.0)
[2020-09-03 11:11] LABS: ALT 21 U/L (16-63); AST 31 U/L (15-37); Albumin 3.1 g/dL (3.4-5.0); Alkaline Phosphatase 134 U/L (46-116); Anion Gap 6.2 mmol/L (3-11); BUN 16 mg/dL (7-18); Bilirubin, Total 1.4 mg/dL (0.2-1.0); CO2 26.8 mmol/L (21.0-32.0); Calcium 8.9 mg/dL (8.5-10.1); Chloride 104 mmol/L (98-107); Glucose 153 mg/dL (74-106); NT-proBNP 7698 pg/mL (<300); Sodium 137 mmol/L (136-145); Troponin I < 0.05 ng/mL (<0.06)
[2020-09-03 11:17] LABS: Potassium 5.2 mmol/L (3.5-5.1)
[2020-09-03 13:44] LABS: Potassium 3.8 mmol/L (3.5-5.1)
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
[2020-09-03 13:57] LABS: Troponin I < 0.05 ng/mL (<0.06)
--- NOTE | 2020-09-03 14:00 | RT.EKG_ITS ---
APPROVED REPORT Exam: Resting ECG Patient Location: E HR:66 bpm ECG Measurements Heart Rate 66 AXIS IL 164 P 36 QRSd 133 QRS -34 QT 446 T 136 QTc 467 Conclusion Sinus rhythm. Nonspecific intraventricular conduction delay Nonspecific T abnrm, anterolateral leads.
[2020-09-03 14:31] LABS: COVID-19 PCR Negative (Negative)
== END 2020-09-03 16:25 | disposition home or self-care (01) ==
PROVIDERS: Emergency Provider Emergency Medicine; PCP Family Medicine
DX: I50.23 Acute on chronic systolic (congestive) heart failure (principal); R06.02 Shortness of breath; E87.5 Hyperkalemia; I25.2 Old myocardial infarction; Z03.818 Encounter for observation for suspected exposure to other biological agents ruled out
CPT/HCPCS: 36415; 80053; 87635; 93005; 96374; 99285; 71045; 83735; 83880; 84132; 84484; 85025; 85610; 85730; 93010; J1940

== ENCOUNTER 2020-09-03 16:48 | Inpatient (IN) | payer OTHER, MEDICAID, SELFPAY ==
[2020-09-03] VITALS (8 sets, daily range): BP systolic 106–113; BP diastolic 65–80; PULSE 59–95; RESP 14–18; TEMP 36.4–36.8; O2SAT 92–96
--- NOTE | 2020-09-03 16:45 | RT.EKG_ITS ---
APPROVED REPORT Exam: Resting ECG Patient Location: E HR:90 bpm ECG Measurements Heart Rate 90 AXIS DC 162 P 54 QRSd 134 QRS -36 QT 426 T 126 QTc 521 Conclusion Sinus rhythm...normal P axis, V-rate 60- 99 Probable left atrial enlargement...P >50mS, <-0.10mV V1 LVH with secondary repolarization abnormality...multi-LVH criteria, abnrm ST-T I have reviewed and interpreted ECG and agree with software generated interpretation.
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
[2020-09-03] MEDS: Methadone Liquid 10 MG/ML 25 MG PO (17:50)
[2020-09-03 17:56] LABS: Abs Immature Grans 0.02 10^3/uL (0.0-0.06); Absolute Basophil Count 0.04 10^3/uL (0.0-0.2); Absolute Eosinophil Count 0.03 10^3/uL (0.0-0.7); Absolute Lymphocyte Count 0.96 10^3/uL (1.2-3.4); Absolute Monocyte Count 0.77 10^3/uL (0.1-0.8); Absolute Neutrophil Count 6.16 10^3/uL (1.2-6.7); Basophils % 0.5; Eosinophils % 0.4; HCT 38.5 % (40.0-50.0); Immature Grans % 0.3; MCHC 31.2 % (32.0-36.0); MPV 9.9 fL (8.0-11.0); Monocytes % 9.6; Neutrophils % 77.2; Nucleated RBC 0 %; Platelet Count 320 10^3/uL (130-400); RBC 4.28 10^6/uL (4.36-5.78); RDW 15.9 % (11.8-14.1); RDW-SD 51.5 fL; WBC 7.98 10^3/uL (4.4-10.8)
[2020-09-03 18:15] LABS: ALT 22 U/L (16-63); AST 24 U/L (15-37); Albumin 3.2 g/dL (3.4-5.0); Alkaline Phosphatase 135 U/L (46-116); BUN 15 mg/dL (7-18); Bilirubin, Total 1.4 mg/dL (0.2-1.0); CREATININE 1.1 mg/dL (0.70-1.30); Chloride 102 mmol/L (98-107); Glucose 107 mg/dL (74-106); Magnesium 1.9 mg/dL (1.8-2.4); NT-proBNP 9943 pg/mL (<300); Potassium 3.7 mmol/L (3.5-5.1); Sodium 139 mmol/L (136-145); Total Protein 8.1 g/dL (6.4-8.2); Troponin I < 0.05 ng/mL (<0.06)
[2020-09-03] MEDS: Potassium Chloride 20 MEQ TABCR 40 MEQ PO (19:53)
[2020-09-03] MEDS: Furosemide 100 MG/10 ML VIAL 80 MG IVP (19:53)
[2020-09-03] MEDS: Gabapentin 600 MG TAB 1200 MG PO (19:53)
[2020-09-03] MEDS: Enoxaparin 40 MG/0.4 ML SYR SC (19:54)
[2020-09-03] MEDS: Normal Saline Flush 10 ML SYR IVP (19:54)
[2020-09-03] MEDS: clonazePAM 0.5 MG TAB PO (20:33)
[2020-09-03] MEDS: Ferrous Gluconate 324 MG TAB PO (20:33)
[2020-09-03] MEDS: Cephalexin 500 MG CAP PO (22:24)
[2020-09-03] MEDS: Metoprolol CR 100 MG TABCR PO (22:24)
[2020-09-03] MEDS: Methadone 10 MG TAB PO (22:48)
[2020-09-04] VITALS (18 sets, daily range): BP systolic 75–116; BP diastolic 39–79; PULSE 29–90; RESP 14–18; TEMP 36–36.4; O2SAT 81–99
--- NOTE | 2020-09-04 | DI.RAD_ITS ---
EXAM: XR PORTABLE CHEST AP CLINICAL HISTORY: new hypoxia TECHNIQUE: COMPARISON: CR XR PORTABLE CHEST AP from 09/03/2020 FINDINGS: Portable upright chest at 1745 hours. Heart is mildly enlarged. Right pleural effusion noted. Prev iously noted left mid lung calcified pulmonary granuloma again seen. No focal consolidation. No adina nge from prior radiographs of September 03. IMPRESSION: No acute change. Right pleural effusion and cardiomegaly. RADIATION DOSE DELIVERED: Total DLP
[2020-09-04] MEDS: Aspirin E.C. 81 MG TABEC PO (04:48)
[2020-09-04] MEDS: Cephalexin 500 MG CAP PO ×3 (04:48→21:23)
[2020-09-04 07:06] LABS: Anion Gap 9.4 mmol/L (3-11); BUN 19 mg/dL (7-18); CO2 29.6 mmol/L (21.0-32.0); CREATININE 1.1 mg/dL (0.70-1.30); Calcium 8.6 mg/dL (8.5-10.1); Calculated LDL 96 mg/dL (<100); Chloride 103 mmol/L (98-107); Cholesterol 145 mg/dL (<200); Glucose 101 mg/dL (74-106); HDL Cholesterol 30 mg/dL (40-60); Magnesium 1.9 mg/dL (1.8-2.4); Potassium 3.7 mmol/L (3.5-5.1); Sodium 142 mmol/L (136-145); Triglyceride 95 mg/dL (<150)
[2020-09-04 07:08] LABS: Hemoglobin A1C 5.3 % (<5.7)
[2020-09-04] MEDS: Spironolactone 25 MG TAB 12.5 MG PO (08:19)
[2020-09-04] MEDS: Acetaminophen 325 MG TAB PO ×2 (08:19→15:18)
[2020-09-04] MEDS: Omeprazole 20 MG CAPCR PO (08:19)
[2020-09-04] MEDS: Furosemide 100 MG/10 ML VIAL 80 MG IVP (08:20)
[2020-09-04] MEDS: Lisinopril 5 MG TAB PO (08:20)
[2020-09-04] MEDS: Methadone 10 MG TAB 30 MG PO (08:20)
[2020-09-04] MEDS: Ferrous Gluconate 324 MG TAB PO ×2 (08:20→20:00)
[2020-09-04] MEDS: Gabapentin 600 MG TAB 1200 MG PO ×2 (08:20→19:59)
[2020-09-04] MEDS: Atorvastatin 40 MG TAB PO (08:20)
[2020-09-04] MEDS: Normal Saline Flush 10 ML SYR IVP (08:21)
--- NOTE | 2020-09-04 09:17 | NUR.NOTE ---
Nursing Note: At 0910 on 09/04/20, this RN asked the pt. if there was anyone who may be available to bring in two of his medications from home (mexiletine and prasugrel). Pt. stated, My driveway is a mess. If it wasn't so torn up maybe someone would be able to get in and get them for me. But that's not going to happen. Pt. has agreed to take the mexiletine that the hospital has available (150 mg PO BID), instead of what he takes at home (200 mg PO BID). Charge nurse to be notified. RN will reassess as necessary.
[2020-09-04] MEDS: Methadone 10 MG TAB PO ×2 (11:27→21:23)
[2020-09-04] MEDS: oxyCODONE 10 MG TAB 40 MG PO ×2 (12:25→21:23)
[2020-09-04] MEDS: Clopidogrel 75 MG TAB PO (15:03)
[2020-09-04] MEDS: Normal Saline 500 ML IV (15:10)
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
[2020-09-04] MEDS: Enoxaparin 120 MG/0.8 ML SYR 110 MG SC (15:18)
--- NOTE | 2020-09-04 18:09 | DI.VRAD_ITS ---
PROCEDURE INFORMATION: Exam: XR Chest Exam date and time: 09/04/2020 5:01 PM Age: 60 years old Clinical indication: Other: New hypoxia TECHNIQUE: Imaging protocol: XR of the chest Views: 1 view. COMPARISON: CR XR PORTABLE CHEST AP 09/03/2020 10:53 AM FINDINGS: Lungs: Similar appearance both lungs. Pleural spaces: similar small right-sided pleural effusion. Heart/Mediastinum: similar cardiomediastinal silhouette. Bones/joints: similar/stable bony structures. IMPRESSION: Similar/stable exam to prior without new acute cardiopulmonary findings. Dictated and Authenticated by: Erlin Nelson MD. Ordering:CLINTON Maciel MD
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
[2020-09-04] MEDS: clonazePAM 0.5 MG TAB PO (19:59)
[2020-09-05] VITALS (10 sets, daily range): BP systolic 103–116; BP diastolic 56–70; PULSE 54–74; RESP 18; TEMP 36.3–36.6; O2SAT 91–97
[2020-09-05] MEDS: Cephalexin 500 MG CAP PO (03:11)
[2020-09-05] MEDS: Enoxaparin 120 MG/0.8 ML SYR 110 MG SC ×2 (03:11→14:15)
[2020-09-05] MEDS: oxyCODONE 10 MG TAB 40 MG PO ×4 (03:11→15:49)
[2020-09-05] MEDS: Aspirin E.C. 81 MG TABEC PO (06:57)
[2020-09-05 07:26] LABS: Abs Immature Grans 0.03 10^3/uL (0.0-0.06); Absolute Basophil Count 0.07 10^3/uL (0.0-0.2); Absolute Eosinophil Count 0.28 10^3/uL (0.0-0.7); Absolute Lymphocyte Count 1.74 10^3/uL (1.2-3.4); Absolute Monocyte Count 0.99 10^3/uL (0.1-0.8); Absolute Neutrophil Count 4.74 10^3/uL (1.2-6.7); Basophils % 0.9; Eosinophils % 3.6; HCT 40.9 % (40.0-50.0); HGB 12.6 g/dL (13.5-17.5); Immature Grans % 0.4; Lymphocytes % 22.2; MCH 27.9 pg (27.0-33.0); MCHC 30.8 % (32.0-36.0); MCV 90.5 fL (80-95); MPV 10.7 fL (8.0-11.0); Monocytes % 12.6; Neutrophils % 60.3; Nucleated RBC 0 %; Platelet Count 347 10^3/uL (130-400); RBC 4.52 10^6/uL (4.36-5.78); RDW 15.5 % (11.8-14.1); RDW-SD 51.3 fL; WBC 7.85 10^3/uL (4.4-10.8)
[2020-09-05 07:44] LABS: Anion Gap 5.6 mmol/L (3-11); BUN 30 mg/dL (7-18); CO2 32.4 mmol/L (21.0-32.0); CREATININE 1.2 mg/dL (0.70-1.30); Calcium 8.8 mg/dL (8.5-10.1); Chloride 103 mmol/L (98-107); Glucose 97 mg/dL (74-106); Magnesium 2.1 mg/dL (1.8-2.4); Potassium 3.8 mmol/L (3.5-5.1); Sodium 141 mmol/L (136-145)
[2020-09-05] MEDS: Atorvastatin 40 MG TAB PO (07:50)
[2020-09-05] MEDS: Methadone 10 MG TAB 30 MG PO (07:50)
[2020-09-05] MEDS: Lisinopril 5 MG TAB PO (07:51)
[2020-09-05] MEDS: Gabapentin 600 MG TAB 1200 MG PO ×2 (07:51→19:52)
[2020-09-05] MEDS: Spironolactone 25 MG TAB 12.5 MG PO (07:51)
[2020-09-05] MEDS: Pantoprazole 40 MG TABCR PO (07:51)
[2020-09-05] MEDS: Clopidogrel 75 MG TAB PO (07:51)
[2020-09-05] MEDS: Torsemide 20 MG TAB 40 MG PO (07:51)
[2020-09-05] MEDS: Ferrous Gluconate 324 MG TAB PO ×2 (07:51→19:52)
[2020-09-05] MEDS: clonazePAM 0.5 MG TAB PO ×2 (11:54→21:26)
[2020-09-05] MEDS: Methadone 10 MG TAB PO ×2 (11:54→21:27)
--- NOTE | 2020-09-05 15:18 | WOUNDCONS_ITS ---
- If Service Date Differs Date of service: 09/05/20 Time of Service: 15:00 Wound Initial Evaluation Narrative: Patient is a 60 YOM, he is seen here for acute on chronic CHF and /car diomyopathy. While here a chronic wound was discovered on his lower right leg. Patient stated that the wound has been present for 3-4 years. He is currently being seen at the wound clinic at [facility]. He admitted that he has not been fully compliant with his appointments. His H&P, labs, allergies, and other pertinent information were reviewed. - Wound Right Lower Tib/Fib(lower leg) Wound Type: Diabetic Ulcer Wound General Appearance: Reddened, Unapproximated Wound Bed Greatest Portion: Pale [place] Wound Bed Lesser Portion: Red (Granulation) Wound Surrounding Tissue Appearance: [place] Percent of Wound Bed Granulated/Red: 40 Percent of Wound Bed Slough/Yellow: 60 Wound Length: 6.9 cm Wound Width: 1.4 cm Wound Depth: 0.3 cm Wound Drainage Amount: Minimal Wound Drainage Odor: None/Absent Wound Drainage Description: Brown Wound Topical Solution/Irrigant: Antibiotic Irrigant Wound Debridement Method: Mechanical Wound Debridement Result: Healthy Tissue Revealed Wound Debridement Amount of Tissue Removed: Minimal (tannish color exudate removed) - Circulation, Sensation, Motion Edema Degree: 1+ Peripheral Pulse Strength: Normal Capillary Refill: Less than 3 seconds Sensation Description: Numbness, Tingling Skin Temperature: Cool Skin Color: Normal - HARLAN Comment:: N/A - Pain Pain Level: 0 Chronic wound, wound would benefit from collagen in the wound bed to help develop granulation tissue. Will suggest promagran applied to the wound bed - Treatment/Dressing Change Topicals/Ointments: None, Anasept Gel Cleanse With: Anasept, Debrisoft Dressing Types: Collagen (Promagran Prism, Mepilex (contact layer) - Recomendation Recomendation:: Cleanse wound with Anasept spray, and a Debrisoft sponge, then pat dry. Apply promagran to the base of the wound. Cover with Mepilex. Change every three days or PRN. Physcian/Nurse Practioner Notified: Yes (Dr. Marmolejo) Treatment Time - Time Total Time Spent with Patient: 30 minutes - For: For:: 1 week
--- NOTE | 2020-09-05 15:54 | W.PM.PROGNOT ---
Date of Service Date of service: 09/05/20 Time of Service: 15:54 Assessment and Plan Assessment and plan (1) Acute on chronic congestive heart failure: Status: Resolved Assessment and plan: Euvolemic. Continue torsemid, aldactone. Continue mixelitine. Attempt to interrogate AICD due to reports of dizziness - tomorrow vs close follow up with EP clinic at [facility]. Split up metoprolol to 25 mg of lopressor BID with holding parameters due to low blood pressure. Since we do not have prasugrel in house, will overlap plavix with therapeutic lovenox until we get this in-house. Qualifiers: Heart failure type: combined systolic and diastolic Qualified Code(s): I50.43 - Acute on chronic combined systolic (congestive) and diastolic (congestive) heart failure (2) Cardiomyopathy: Status: Chronic Assessment and plan: As above Qualifiers: Cardiomyopathy type: ischemic Qualified Code(s): I25.5 - Ischemic cardiomyopathy (3) Cellulitis of left forearm: Status: Acute Assessment and plan: Continue PO keflex. If spikes a fever, start vancomycin. h/o chronic osteomyelitis (4) Wound of right lower extremity: Status: Acute Assessment and plan: Not infected. Seen by wound care - defer to their recommendations. (5) Hyperglycemia: Status: Ruled-out Assessment and plan: A1C of 5.3 At this point, the patient is not diabetic. Will monitor blood sugars here. (6) DVT prophylaxis: Status: Acute Assessment and plan: On therapeutic lovenox while awaiting arrival of prasugrel (7) Discharge planning issues: Status: Acute Assessment and plan: Full code Continues to require hospitalization Anticipate discharge home tomorrow Subjective Subjective Interval history since last seen: Mr Zuluaga did not want to take the morning dose of metoprolol, despite explanation for why we split his long acting dose into two and decreased the dose by half. He states he normally takes toprol XL 50 mg at night, not 100, because 100 mg lowered his blood pressure too much. I explained to him that I would be giving him a half of that dose in short acting form, which he now is in agreement with. He denies dizziness, chest pain, shortness of breath, nausea. He feels better today. He realizes that he cannot go home today yet due to his outpatient prescription medications not being figured out (outpatient pharmacy states he does not have refills and he spilled all his medications on the floor) and his heart rate medications being adjusted. Exam Narrative Exam Narrative: General: Argumentative Middle-aged male, laying in bed, looks better than yesterday; on room air HEENT: EOMI, MMM Heart: RRR Lungs: Diminshed breath sounds B Abdomen: soft, nontender, nondistended Extremities: no edema BLE's, RLE tibial surface wound dressed - c/d/i Objective Last Vital Signs Temp 36.5 C 09/05/20 11:39 Pulse 64 09/05/20 11:39 Resp 18 09/05/20 11:39 BP 103/56 L 09/05/20 11:39 Pulse Ox 91 L 09/05/20 11:39 Laboratory Results - last 24 hr 09/05/20 09/05/20 06:35 06:35 WBC 7.85 RBC 4.52 Hgb 12.6 L Hct 40.9 MCV 90.5 MCH 27.9 MCHC 30.8 L RDW 15.5 H Plt Count 347 MPV 10.7 Immature Gran % 0.4 Neutrophils % 60.3 Lymphocytes % 22.2 Monocytes % 12.6 Eosinophils % 3.6 Basophils % 0.9 Nucleated RBC % 0 Absolute Neutrophils 4.74 Absolute Lymphocytes 1.74 Absolute Monocytes 0.99 H Absolute Eosinophils 0.28 Absolute Basophils 0.07 Sodium 141 Potassium 3.8 Chloride 103 Carbon Dioxide 32.4 H Anion Gap 5.6 BUN 30 H D Creatinine 1.2 Estimated GFR/1.73 m2 >= 60.00 Glucose 97 Calcium 8.8 Magnesium 2.1
--- NOTE | 2020-09-05 18:27 | CMPROGNOTE_ITS ---
- If Service Date Differs Date of service: 09/05/20 Time of Service: 18:27 Care Management Progress Note S/O: Ahmet was sitting up in bed when CM met with him. He was pleasant and agreeable to conversation. Ahmet was concerned because he missed his appointment at the wound center at [facility] in [place] last week because he was ill. He requested that CM contact them to let them know why he missed the appointment. Ahmet also shard that he has just moved to [facility] from [facility]. He stated that he is glad to be back but has a lot of work to do. 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 Ahmet acknowledged that he is feeling better than when he was first admitted. A: Ahmet is a 60 myear old man admitted on 09/03/20 with CHF P: Anticipate Kareem will discharge home with no services when medically cleared by provider. He will follow up with his crown blocker, PCP, and plan of care as directed. A friend will drive him home via private vehicle when ready. CM will continue to follow.
[2020-09-05] MEDS: Metoprolol 25 MG TAB PO (18:50)
[2020-09-06] MEDS: oxyCODONE 10 MG TAB 40 MG PO (02:34)
[2020-09-06] MEDS: Enoxaparin 120 MG/0.8 ML SYR 110 MG SC (02:34)
[2020-09-06 05:35] VITALS: BP 121/75; PULSE 62; RESP 18; TEMP 35.8; O2SAT 93
[2020-09-06] MEDS: Aspirin E.C. 81 MG TABEC PO (05:37)
[2020-09-06] MEDS: Acetaminophen 325 MG TAB PO (05:37)
[2020-09-06 07:38] VITALS: PULSE 55
[2020-09-06 07:41] VITALS: PULSE 66
[2020-09-06 07:52] VITALS: BP 109/64; PULSE 47; RESP 19; TEMP 35.5; O2SAT 94
[2020-09-06] MEDS: Ferrous Gluconate 324 MG TAB PO (08:02)
[2020-09-06] MEDS: Atorvastatin 40 MG TAB PO (08:02)
[2020-09-06] MEDS: Lisinopril 5 MG TAB PO (08:02)
[2020-09-06] MEDS: Gabapentin 600 MG TAB 1200 MG PO (08:03)
[2020-09-06] MEDS: Torsemide 20 MG TAB 40 MG PO (08:04)
[2020-09-06] MEDS: Clopidogrel 75 MG TAB PO (08:04)
[2020-09-06] MEDS: Spironolactone 25 MG TAB 12.5 MG PO (08:05)
[2020-09-06] MEDS: Methadone 10 MG TAB 30 MG PO (08:05)
[2020-09-06] MEDS: Cephalexin 500 MG CAP PO (10:44)
[2020-09-06 11:04] VITALS: BP 94/62; PULSE 70; RESP 18; TEMP 36.2; O2SAT 94
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
[2020-09-06] MEDS: Methadone 10 MG TAB PO (11:40)
--- NOTE | 2020-09-06 18:50 | PDOC.CMDIS ---
- If Service Date Differs Date of service: 09/06/20 Time of Service: 18:50 LACE Index Scoring Tool - Questions: Length of Stay (in days): 3 Acuity (Admit via E.D.?): Yes Comorbidities: Diabetes w/o Complication, Congestive Heart Failure, Chronic Pulmonary Disease E.D. Visits: 4 - Answers: Total Score: 15 Risk of Readmission: High Risk Care Management Discharge Reason for Hospitalization: Acute on chronic CHF. Discharge Plan: Kareem will discharge home today with no additional services. He will be driven home via private vehicle by a friend. He will follow up with his associate professor of literature, PCP and discharge plan of care. He is happy to be going home. Patient/Family Education Needs: Review discharge instructions regarding activity levels and medications, discussion of self care needs including ask me three.
== END 2020-09-06 11:59 | disposition home or self-care (01) | DRG 292 ==
LOC: ER 18:22 → MS 18:49
PROVIDERS: Internal Medicine; Admitting Provider Internal Medicine; Emergency Provider Physician Assistant; PCP Family Medicine; Visit Provider Internal Medicine
DX: I50.43 Acute on chronic combined systolic (congestive) and diastolic (congestive) heart failure (principal); L03.114 Cellulitis of left upper limb; I47.2 Ventricular tachycardia; L97.818 Non-pressure chronic ulcer of other part of right lower leg with other specified severity; I25.5 Ischemic cardiomyopathy; Z20.822 Contact with and (suspected) exposure to COVID-19; E87.5 Hyperkalemia; I25.10 Atherosclerotic heart disease of native coronary artery without angina pectoris; Z95.5 Presence of coronary angioplasty implant and graft; J44.9 Chronic obstructive pulmonary disease, unspecified; Z86.711 Personal history of pulmonary embolism; Z95.810 Presence of automatic (implantable) cardiac defibrillator; F43.10 Post-traumatic stress disorder, unspecified; G47.33 Obstructive sleep apnea (adult) (pediatric); R00.1 Bradycardia, unspecified; T50.1X6A Underdosing of loop [high-ceiling] diuretics, initial encounter; E11.65 Type 2 diabetes mellitus with hyperglycemia; M54.2 Cervicalgia; G89.29 Other chronic pain; I25.2 Old myocardial infarction; E11.42 Type 2 diabetes mellitus with diabetic polyneuropathy; E11.622 Type 2 diabetes mellitus with other skin ulcer
CPT/HCPCS: 36415; 36416; 80048; 80053; 80061; 82962; 87635; 93005; 99223; 99232; 99239; 99285; J1650; 71045; 83036; 83735; 83880; 84484; 85025; 93010; 94667; J1940

== ENCOUNTER 2020-09-10 16:06 | Outpatient (REF) | payer OTHER, MEDICAID, SELFPAY ==
[2020-09-14 11:33] LABS: Codeine Negative ng/mL (Cutoff: 25); Dihydrocodeine Negative ng/mL (Cutoff: 25); Hydrocodone Negative ng/mL (Cutoff: 25); Hydromorphone Negative ng/mL (Cutoff: 25); Morphine Negative ng/mL (Cutoff: 25); Naloxone Negative ng/mL (Cutoff: 25); Norhydrocodone Negative ng/mL (Cutoff: 25); Noroxycodone 29 ng/mL (Cutoff: 25); Noroxymorphone Negative ng/mL (Cutoff: 25); Opiates Interpretation Positive.
== END 2020-09-10 16:07 | disposition home or self-care (01) ==
LOC: NCHCN 16:06
PROVIDERS: PCP Family Medicine; Visit Provider Family Medicine
DX: M54.89 Other dorsalgia (principal); F19.21 Other psychoactive substance dependence, in remission
CPT/HCPCS: 80361; 80362

== ENCOUNTER 2020-09-24 15:16 | Outpatient (REF) | payer OTHER, MEDICAID, SELFPAY ==
[2020-09-28 11:04] LABS: Codeine Negative ng/mL (Cutoff: 25); Dihydrocodeine Negative ng/mL (Cutoff: 25); Hydrocodone Negative ng/mL (Cutoff: 25); Hydromorphone Negative ng/mL (Cutoff: 25); Morphine Negative ng/mL (Cutoff: 25); Naloxone Negative ng/mL (Cutoff: 25); Norhydrocodone Negative ng/mL (Cutoff: 25); Noroxycodone Negative ng/mL (Cutoff: 25); Noroxymorphone Negative ng/mL (Cutoff: 25); Opiates Interpretation Negative.
== END 2020-09-24 15:17 | disposition home or self-care (01) ==
LOC: NCHCN 15:16
PROVIDERS: PCP Family Medicine; Visit Provider Family Medicine
DX: M54.89 Other dorsalgia (principal); G89.29 Other chronic pain; Z79.891 Long term (current) use of opiate analgesic
CPT/HCPCS: 80361; 80362

== ENCOUNTER 2020-09-30 14:34 | Outpatient (REF) | payer OTHER, MEDICAID, SELFPAY ==
[2020-10-05 05:31] LABS: Codeine Negative ng/mL (Cutoff: 25); Dihydrocodeine Negative ng/mL (Cutoff: 25); Hydrocodone Negative ng/mL (Cutoff: 25); Hydromorphone Negative ng/mL (Cutoff: 25); Morphine Negative ng/mL (Cutoff: 25); Naloxone Negative ng/mL (Cutoff: 25); Norhydrocodone Negative ng/mL (Cutoff: 25); Noroxycodone Negative ng/mL (Cutoff: 25); Noroxymorphone Negative ng/mL (Cutoff: 25); Opiates Interpretation Negative.
[2020-10-05 21:42] LABS: 2-OH-Ethyl-Flurazepam Negative ng/mL (Cutoff: 10); 7-NH-Clonazepam 496 ng/mL (Cutoff: 10); Alpha OH-Alprazolam Negative ng/mL (Cutoff: 10); Alpha-OH Midazolam Negative ng/mL (Cutoff: 10); Alpha-OH-Triazolam Negative ng/mL (Cutoff: 10); Alprazolam Negative ng/mL (Cutoff: 10); Benzodiazepines Interpretation Positive.; Chlordiazepoxide Negative ng/mL (Cutoff: 10); Clobazam Negative ng/mL (Cutoff: 10); Clonazepam Negative ng/mL (Cutoff: 10); Diazepam Negative ng/mL (Cutoff: 10); Flurazepam Negative ng/mL (Cutoff: 10); Lorazepam Negative ng/mL (Cutoff: 10); Midazolam Negative ng/mL (Cutoff: 10); N-Desmethylclobazam Negative ng/mL (Cutoff: 10); Prazepam Negative ng/mL (Cutoff: 10); Temazepam Negative ng/mL (Cutoff: 10); Triazolam Negative ng/mL (Cutoff: 10); Zolpidem Carboxylic acid Negative ng/mL (Cutoff: 10)
== END 2020-09-30 14:35 | disposition home or self-care (01) ==
LOC: NCHCN 14:34
PROVIDERS: PCP Family Medicine; Visit Provider Family Medicine
DX: M54.89 Other dorsalgia (principal); F19.21 Other psychoactive substance dependence, in remission; Z79.891 Long term (current) use of opiate analgesic
CPT/HCPCS: 80361; 80362; 80346

== ENCOUNTER 2020-11-04 00:52 | Outpatient (CLI) | payer OTHER, MEDICAID, SELFPAY ==
--- NOTE | 2020-11-04 | DI.CT_ITS ---
Exam(s) CT LUMBAR SPINE WO EXAM: CT LUMBAR SPINE WO CLINICAL HISTORY: CHRONIC BACK PAIN, M54.89. TECHNIQUE: Imaging Protocol: Axial computed tomography images with coronal and sagittal reformatted images were created and reviewed COMPARISON: No exams were available for comparison FINDINGS: Bones: The last intervertebral disc space is designated the L5/S1 level for the numbering purpose of this examination. There is fusion of the L4 and L5 vertebral bodies. The vertebral body heights are otherwise well maintained. Alignment is satisfactory. No fracture is seen. Endplate osteophytes are seen at all levels of the lumbar spine. There is disc space narrowing at L5-S1. T12-L1: There is a vacuum disc present. No disc herniations or bulges are present. No significant c entral spinal canal or neural foraminal stenosis. L1-2: No disc herniations or bulges are present. No significant central spinal canal or neural jomar inal stenosis. L2-3: There is a vacuum disc present. No disc herniations or bulges are present. There are degenera tive changes of the facets. No significant central spinal canal stenosis is seen. There is moderate bilateral neural foraminal stenosis. L3-4: There is a diffuse disc bulge. There are degenerative changes of the facets. These 2 combine to form moderate central spinal canal stenosis. There is moderately severe bilateral neural foramin al stenosis. L4-5: No disc herniations or bulges are present. No significant central spinal canal stenosis. Mild right neural foraminal stenosis is seen no significant left neural foraminal stenosis. L5-S1: There is a vacuum disc present. There are endplate osteophytes. There are degenerative beckett ges of the facets. There is a mild diffuse disc bulge. No significant central spinal canal stenosis is seen moderately severe bilateral neural foraminal stenosis is present. Soft Tissues: The visualized SI joints and sacrum are will maintained. The paraspinal soft tissues a re unremarkable. Atherosclerosis. IMPRESSION: Multilevel degenerative changes in the lumbar spine resulting in central spinal canal and neural fora brit stenosis as described. RADIATION DOSE DELIVERED: 867.41mGy.cm Total DLP 867.41mGy.cm Total DLP DATA REPOSITORY: All CT scans at this facility are submitted to the National Radiology Data Registry (NRDR) Dose Index Registry (DIR) with the [employer] (A[employer]). RADIATION OPTIMIZATION: All CT scans at this facility use at least one of these dose optimization te chniques: automated exposure control; mA and/or kV adjustment per patient size (includes targeted exa ms where dose is matched to clinical indication); or iterative reconstruction.
== END 2020-11-04 01:12 ==
PROVIDERS: PCP Family Medicine; Visit Provider Family Medicine
DX: M54.5 Low back pain (principal); G89.29 Other chronic pain; M47.817 Spondylosis without myelopathy or radiculopathy, lumbosacral region
CPT/HCPCS: 72131

== ENCOUNTER 2020-12-16 17:25 | Outpatient (REF) | payer OTHER, MEDICAID, SELFPAY ==
[2020-12-16 19:33] LABS: HCT 39.2 % (40.0-50.0); HGB 12.2 g/dL (13.5-17.5)
[2020-12-16 19:43] LABS: ESR 73 mm/hr (0-20)
[2020-12-16 20:14] LABS: C-Reactive Protein 2.91 mg/dL (0.0-0.3)
[2020-12-17 11:22] LABS: Anion Gap 9.6 mmol/L (3-11); BUN 16 mg/dL (7-18); CO2 29.4 mmol/L (21.0-32.0); CREATININE 1.4 mg/dL (0.70-1.30); Calcium 9.2 mg/dL (8.5-10.1); Chloride 103 mmol/L (98-107); Estimated GFR 51.87 (mL/min/1.73m2); Glucose 102 mg/dL (74-106); Potassium 3.9 mmol/L (3.5-5.1); Sodium 142 mmol/L (136-145)
[2020-12-17 11:31] LABS: Abs Immature Grans 0.02 10^3/uL (0.0-0.06); Absolute Basophil Count 0.06 10^3/uL (0.0-0.2); Absolute Eosinophil Count 0.18 10^3/uL (0.0-0.7); Absolute Lymphocyte Count 1.09 10^3/uL (1.2-3.4); Absolute Monocyte Count 0.79 10^3/uL (0.1-0.8); Absolute Neutrophil Count 5.28 10^3/uL (1.2-6.7); Basophils % 0.8; Eosinophils % 2.4; Immature Grans % 0.3; Lymphocytes % 14.7; MCH 27.6 pg (27.0-33.0); MCV 88.9 fL (80-95); MPV 10.9 fL (8.0-11.0); Monocytes % 10.6; Neutrophils % 71.2; Nucleated RBC 0 %; Platelet Count 301 10^3/uL (130-400); RBC 4.42 10^6/uL (4.36-5.78); RDW 14.8 % (11.8-14.1); RDW-SD 48.2 fL; WBC 7.42 10^3/uL (4.4-10.8)
[2020-12-17 21:26] LABS: Calculated LDL 117 mg/dL (<100); Cholesterol 169 mg/dL (<200); HDL Cholesterol 37 mg/dL (40-60); Triglyceride 77 mg/dL (<150)
[2020-12-22 17:42] LABS: Amphetamine Negative ng/mL (Cutoff: 25); Amphetamines Interpretation Negative.; MDA (Ecstasy Metabolite) Negative ng/mL (Cutoff: 25); MDMA (Ecstasy) Negative ng/mL (Cutoff: 25); Methamphetamine Negative ng/mL (Cutoff: 25); Phentermine Negative ng/mL (Cutoff: 25); Pseudoephedrine/Ephedrine Negative ng/mL (Cutoff: 25)
== END 2020-12-16 17:26 | disposition home or self-care (01) ==
LOC: NCHCN 17:25
PROVIDERS: PCP Family Medicine; Visit Provider Family Medicine
DX: Z51.81 Encounter for therapeutic drug level monitoring (principal); D64.9 Anemia, unspecified; L03.039 Cellulitis of unspecified toe; I25.5 Ischemic cardiomyopathy
CPT/HCPCS: 80048; 80061; 80324; 85652; 87077; 85014; 85018; 85025; 86140; 87070; 87186; 87205

== ENCOUNTER 2020-12-24 15:49 | Outpatient (CLI) | payer OTHER, MEDICAID, SELFPAY ==
--- NOTE | 2020-12-24 | DI.RAD_ITS ---
Exam(s) XR TOE RT GREAT EXAM: XR TOE RT GREAT CLINICAL HISTORY: TOENAIL INFECTION, L03.039. TECHNIQUE: 2D digital imaging was performed. COMPARISON: No exams were available for comparison FINDINGS: BONES: No acute fracture is present. No bony destructive lesion is seen. JOINTS: No dislocation present. SOFT TISSUE: Normal. No foreign body or gas collection. IMPRESSION: No acute abnormality.. DATA REPOSITORY: RADIATION DOSE DELIVERED:
== END 2020-12-24 16:09 ==
PROVIDERS: PCP Family Medicine; Visit Provider Family Medicine
DX: L03.031 Cellulitis of right toe (principal)
CPT/HCPCS: 73660

== ENCOUNTER 2021-01-04 20:14 | Outpatient (REF) | payer OTHER, MEDICAID, SELFPAY ==
[2021-01-04 19:17] LABS: HCT 38.2 % (40.0-50.0); HGB 11.7 g/dL (13.5-17.5); MCH 26.6 pg (27.0-33.0); MCHC 30.6 % (32.0-36.0); MCV 86.8 fL (80-95); Platelet Count 296 10^3/uL (130-400); RDW 15.2 % (11.8-14.1); RDW-SD 47.9 fL; WBC 8.26 10^3/uL (4.4-10.8)
[2021-01-04 19:23] LABS: ESR 93 mm/hr (0-20)
[2021-01-04 19:56] LABS: ALT 39 U/L (16-63); AST 50 U/L (15-37); Albumin 2.8 g/dL (3.4-5.0); Alkaline Phosphatase 111 U/L (46-116); Anion Gap 5.6 mmol/L (3-11); BUN 15 mg/dL (7-18); Bilirubin, Total 0.9 mg/dL (0.2-1.0); C-Reactive Protein 6.47 mg/dL (0.0-0.3); CO2 31.4 mmol/L (21.0-32.0); CREATININE 1.1 mg/dL (0.70-1.30); Calcium 8.6 mg/dL (8.5-10.1); Chloride 102 mmol/L (98-107); Glucose 85 mg/dL (74-106); NT-proBNP 5779 pg/mL (<300); Potassium 4.6 mmol/L (3.5-5.1); Sodium 139 mmol/L (136-145); Total Protein 7.7 g/dL (6.4-8.2)
== END 2021-01-04 20:15 | disposition home or self-care (01) ==
LOC: NCHCN 20:14
PROVIDERS: PCP Family Medicine; Visit Provider Family Medicine
DX: R05 Cough (principal); R06.09 Other forms of dyspnea; I48.0 Paroxysmal atrial fibrillation; I50.9 Heart failure, unspecified
CPT/HCPCS: 80053; 85027; 85652; 83880; 86140

== ENCOUNTER 2021-01-06 11:17 | Outpatient (CLI) | payer OTHER, MEDICAID, SELFPAY ==
[2021-01-06 13:13] LABS: D-Dimer 7410 ng/mlFEU (<500)
== END 2021-01-06 11:18 | disposition home or self-care (01) ==
LOC: LBO 11:19
PROVIDERS: PCP Family Medicine; Visit Provider Family Medicine
DX: R06.00 Dyspnea, unspecified (principal); R05 Cough
CPT/HCPCS: 36415; 85379

== ENCOUNTER 2021-01-06 12:38 | Outpatient (CLI) | payer OTHER, MEDICAID, SELFPAY ==
--- NOTE | 2021-01-06 | DI.RAD_ITS ---
Exam(s) XR CHEST 2V PA LATERAL EXAM: XR CHEST 2V PA LATERAL CLINICAL HISTORY: COUGH, R05. TECHNIQUE: 2D digital imaging was performed. COMPARISON: CR CHEST 2 VIEWS PA,LAT from 05/04/2012 CR CHEST 2 VIEWS PA,LAT from 05/04/2012 CR CHEST 2 VIEWS PA,LAT from 10/16/2012 CR CHEST 2 VIEWS PA,LAT from 10/16/2012 CR XR PORTABLE CHEST AP from 09/03/2020 CR XR PORTABLE CHEST AP from 09/03/2020 CR,XR XR PORTABLE CHEST AP from 09/04/2020 FINDINGS: Cardiomegaly again noted. A left-sided subcutaneous stimulator device is noted with lead tip in the subcutaneous anterior chest wall again noted over the heart area. Mediastinum is not widened. Size of the right pleural effusion is unchanged. There is no obvious pleural effusion on the left si de. Nodular density in the mid left lung is again noted, unchanged. Also unchanged from chest x-ray 09/03/2020. Indeed, this finding is also unchanged from chest x-ray May 2012 and therefore joe ign. There is a pulmonary venous hypertension pattern but no airspace pulmonary edema at this time. IMPRESSION: Unchanged appearance/size of the small-moderate size right pleural effusion. There is no obvious ple ural effusion on the left side. Unchanged left lung nodule which is benign given that it is unchanged from at least 2011. Mild pulmonary venous hypertension pattern but no airspace pulmonary edema evident at this time. DATA REPOSITORY: RADIATION DOSE DELIVERED:
== END 2021-01-06 12:58 ==
PROVIDERS: PCP Family Medicine; Visit Provider Family Medicine
DX: J90 Pleural effusion, not elsewhere classified (principal); R91.1 Solitary pulmonary nodule; I27.20 Pulmonary hypertension, unspecified
CPT/HCPCS: 71046

== ENCOUNTER 2021-01-06 18:06 | Inpatient (IN) | payer OTHER, MEDICAID, SELFPAY ==
[2021-01-06] VITALS (28 sets, daily range): BP systolic 93–137; BP diastolic 72–101; PULSE 103–115; RESP 9–28; TEMP 36.6–37.2; O2SAT 89–97
--- NOTE | 2021-01-06 18:00 | RT.EKG_ITS ---
APPROVED REPORT Exam: Resting ECG Reason for Exam: sob Patient Location: E HR:114 bpm ECG Measurements Heart Rate 114 AXIS MN 160 P 147 QRSd 130 QRS -45 QT 336 T 157 QTc 462 Conclusion Sinus tachycardia.. Probable left atrial enlargement.. Nonspecific IVCD with LAD.. LVH with secondary repolarization abnormality. Lateral Q waves Anterior ST elevation, probably due to LVH.
--- NOTE | 2021-01-06 18:15 | DI.CT_ITS ---
Exam(s) CT CHEST PE CTA EXAM: CT CHEST PE CTA CLINICAL HISTORY: cOUGH, sob, ELEV ddIMER TECHNIQUE: COMPARISON: CT CHEST FOR PULMONARY EMBOLUS from 05/04/2017 CT CHEST FOR PULMONARY EMBOLUS from 05/04/2017 CR,XR XR PORTABLE CHEST AP from 09/04/2020 CR,XR XR PORTABLE CHEST AP from 09/04/2020 FINDINGS: CT angiography the chest was performed with bolus infusion cc of Omnipaque 3. Images obtained throug h the upper abdomen show nonobstructing right renal calcification. Visualized portions of liver, spl een, pancreas, adrenals, and gallbladder appear normal. There are multiple pulmonary emboli, most marked involving right lower lobe lobar segmental and subse gmental vessels. There is moderate size right pleural effusion. There are focal areas of ground-gla ss opacity both lungs anteriorly in the upper lobes which are associated with focal pulmonary emboli in supplying vessels, these may represent areas of pulmonary infarction, versus infectious process. Diffuse central lobular and subpleural emphysematous changes noted. Complex calcified mass in left u pper lobe grossly unchanged from 2017 CT. Tracheobronchial tree appears intact. No mediastinal valeria opathy. No evidence of right heart strain. IMPRESSION: Pulmonary embolic disease with moderate clot burden. No evidence of right heart strain. Suspect juan ateral upper lobe pulmonary infarcts, infectious process not excluded. RADIATION DOSE DELIVERED: 578.15mGy.cm Total DLP CTDIvol RADIATION OPTIMIZATION: All CT scans at this facility use at least one of these dose optimization te chniques: automated exposure control; mA and/or kV adjustment per patient size (includes targeted exa ms where dose is matched to clinical indication); or iterative reconstruction.
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
[2021-01-06] MEDS: Normal Saline Flush 10 ML SYR IVP (19:15)
[2021-01-06] MEDS: LORazepam 2 MG/ML VIAL 0.5 MG IVP (19:15)
[2021-01-06 19:16] LABS: Troponin I 0.05 ng/mL (<0.06)
[2021-01-06 19:20] LABS: NT-proBNP 10237 pg/mL (<300)
[2021-01-06] MEDS: Normal Saline - Diluent 50 ML VIAL IV (20:36)
[2021-01-06] MEDS: Omnipaque 350 MG/ML 100 ML BTL IJ (20:37)
--- NOTE | 2021-01-06 21:13 | DI.VRAD_ITS ---
PROCEDURE INFORMATION: Exam: CTA Chest With Contrast Exam date and time: 01/06/2021 6:33 PM Age: 60 years old Clinical indication: Pain; Other: Cough, SOB, elev ddimer; Prior surgery TECHNIQUE: Imaging protocol: Computed tomographic angiography of the chest with contrast. 3D rendering (Not supervised by radiologist): MIP and/or 3D reconstructed images were created by the technologist. Contrast material: OMNIPAQUE 350; Contrast volume: 100 ml; Contrast route: INTRAVENOUS (IV); COMPARISON: CT CHEST FOR PULMONARY EMBOLUS 05/04/2017 1:48 PM FINDINGS: Tubes, catheters and devices: Implanted device noted on the left, with a long lead extending anterior to the sternum. Pulmonary arteries: Positive for pulmonary embolism. Moderate clot burden. Thrombus observed in the right lower lobe pulmonary arteries and left lower lobe segmental arteries. Pulmonary artery trunk is clear. No evidence of right ventricular strain. Aorta: Thoracic aorta is minimally opacified with contrast. Negative for aneurysm. Lungs: Moderate areas of ground-glass opacity and consolidation are present in both upper lobes. Areas of consolidation are present in the right lower lobe. Complex calcified nodules and lucent areas of the lung in the left upper lobe are unchanged. Paraseptal emphysema noted. Pleural spaces: Mild right pleural effusion. Negative for left pleural effusion. No evidence of pneumothorax. Heart: Left ventricular and left atrial enlargement noted. Lymph nodes: Mild bilateral hilar and subcarinal lymphadenopathy noted. Negative for calcified lymph nodes. Gallbladder and bile ducts: Mild calcified stones noted in the gallbladder. No evidence of cholecystitis. Bones/joints: Compression deformities are noted at T3, T6, T7, T8, T9, and L2, similar to previous. Additional mild degenerative changes present in the thoracic spine. Soft tissues: Severe bilateral gynecomastia. IMPRESSION: 1. Positive for pulmonary embolism. 2. Moderate clot burden. 3. Negative for right ventricular strain. 4. Multifocal ground-glass opacity and consolidation. Atypical pneumonia favored. Areas of pulmonary infarct not excluded. 5. Chronic lung disease. Paraseptal emphysema. Focal calcified granulomas left upper lobe. 6. Cardiomegaly. 7. Mild right pleural effusion. 8. Cholelithiasis. THIS REPORT CONTAINS FINDINGS THAT MAY BE CRITICAL TO PATIENT CARE. The findings were verbally communicated via telephone conference with Dr. Vargas at 9:05 PM EDT on 01/06/2021. The findings were acknowledged and understood. Dictated and Authenticated by: Tyrone Murray MD. Ordering:COLUMBA Hinkle MD
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
[2021-01-06 22:25] LABS: Abs Immature Grans 0.04 10^3/uL (0.0-0.06); Absolute Basophil Count 0.04 10^3/uL (0.0-0.2); Absolute Eosinophil Count 0.08 10^3/uL (0.0-0.7); Absolute Lymphocyte Count 0.99 10^3/uL (1.2-3.4); Absolute Monocyte Count 1.22 10^3/uL (0.1-0.8); Absolute Neutrophil Count 8.83 10^3/uL (1.2-6.7); Basophils % 0.4; Eosinophils % 0.7; HCT 36.8 % (40.0-50.0); HGB 11.4 g/dL (13.5-17.5); Immature Grans % 0.4; Lymphocytes % 8.8; MCH 26.4 pg (27.0-33.0); MCV 85.2 fL (80-95); MPV 10.3 fL (8.0-11.0); Monocytes % 10.9; Neutrophils % 78.8; Nucleated RBC 0 %; Platelet Count 350 10^3/uL (130-400); RBC 4.32 10^6/uL (4.36-5.78); RDW-SD 46.3 fL
[2021-01-06] MEDS: DOXYCYCLINE 100 MG in Normal Saline 100 ML IVPB (22:32)
[2021-01-06] MEDS: cefTRIAXone 1 GM/50 ML BAG IVPB (22:32)
[2021-01-06 22:41] LABS: COVID-19 PCR Negative (Negative)
[2021-01-06 22:41] LABS: ALT 47 U/L (16-63); AST 72 U/L (15-37); Albumin 2.8 g/dL (3.4-5.0); Alkaline Phosphatase 107 U/L (46-116); Anion Gap 6.7 mmol/L (3-11); BUN 17 mg/dL (7-18); Bilirubin, Total 1.8 mg/dL (0.2-1.0); C-Reactive Protein 11.67 mg/dL (0.0-0.3); CO2 28.3 mmol/L (21.0-32.0); CREATININE 1.4 mg/dL (0.70-1.30); Calcium 8.6 mg/dL (8.5-10.1); Chloride 99 mmol/L (98-107); Estimated GFR 51.87 (mL/min/1.73m2); Glucose 98 mg/dL (74-106); LDH 288 U/L (85-227); Potassium 4.5 mmol/L (3.5-5.1); Sodium 134 mmol/L (136-145); Total Protein 8.1 g/dL (6.4-8.2)
[2021-01-06 22:46] LABS: Troponin I < 0.05 ng/mL (<0.06)
[2021-01-06 23:05] LABS: Ferritin 78 ng/mL (26-388)
[2021-01-06 23:06] LABS: Procalcitonin 0.2 ng/mL
[2021-01-07] VITALS (48 sets, daily range): BP systolic 81–110; BP diastolic 47–81; PULSE 59–153; RESP 9–28; TEMP 35.1–36.5; O2SAT 87–98
[2021-01-07] MEDS: Gabapentin 400 MG CAP 1200 MG PO (01:36)
[2021-01-07] MEDS: Apixaban 5 MG TAB 10 MG PO ×3 (01:36→19:20)
[2021-01-07] MEDS: Dronabinol 2.5 MG CAP 5 MG PO (01:36)
[2021-01-07] MEDS: Methadone 10 MG TAB 20 MG PO ×2 (01:36→19:19)
[2021-01-07 06:52] LABS: Abs Immature Grans 0.03 10^3/uL (0.0-0.06); Absolute Basophil Count 0.05 10^3/uL (0.0-0.2); Absolute Eosinophil Count 0.12 10^3/uL (0.0-0.7); Absolute Lymphocyte Count 1.18 10^3/uL (1.2-3.4); Absolute Monocyte Count 1.24 10^3/uL (0.1-0.8); Absolute Neutrophil Count 6.75 10^3/uL (1.2-6.7); Basophils % 0.5; Eosinophils % 1.3; HCT 35.5 % (40.0-50.0); HGB 10.9 g/dL (13.5-17.5); Immature Grans % 0.3; Lymphocytes % 12.6; MCH 26.7 pg (27.0-33.0); MCHC 30.7 % (32.0-36.0); MCV 86.8 fL (80-95); Monocytes % 13.2; Neutrophils % 72.1; Nucleated RBC 0 %; Platelet Count 298 10^3/uL (130-400); RBC 4.09 10^6/uL (4.36-5.78); RDW-SD 47.5 fL; WBC 9.37 10^3/uL (4.4-10.8)
[2021-01-07 07:03] LABS: Anion Gap 4.3 mmol/L (3-11); BUN 15 mg/dL (7-18); CO2 31.7 mmol/L (21.0-32.0); CREATININE 1.2 mg/dL (0.70-1.30); Calcium 8.6 mg/dL (8.5-10.1); Chloride 101 mmol/L (98-107); Glucose 83 mg/dL (74-106); Potassium 3.9 mmol/L (3.5-5.1); Sodium 137 mmol/L (136-145)
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
[2021-01-07] MEDS: Gabapentin 600 MG TAB 1200 MG PO ×2 (08:56→19:20)
[2021-01-07] MEDS: Metoprolol CR 100 MG TABCR PO (08:57)
[2021-01-07] MEDS: Atorvastatin 40 MG TAB PO (08:57)
[2021-01-07] MEDS: Methadone 10 MG TAB 30 MG PO (08:57)
[2021-01-07] MEDS: Lisinopril 5 MG TAB PO (08:57)
[2021-01-07] MEDS: Aspirin E.C. 81 MG TABEC PO (08:57)
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
--- NOTE | 2021-01-07 12:30 | RT.EKG_ITS ---
APPROVED REPORT Exam: Resting ECG Reason for Exam: chest pain Patient Location: I HR:76 bpm ECG Measurements Heart Rate 76 AXIS WV 160 P 62 QRSd 128 QRS -67 QT 445 T 92 QTc 500 Conclusion Sinus rhythm...normal P axis, V-rate 60- 99 Consider anterolateral infarct...Q >30mS, I aVL V3-V6,I,aVL
[2021-01-07] MEDS: Normal Saline 250 ML 500 ML IV (12:46)
[2021-01-07 13:32] LABS: Troponin I < 0.05 ng/mL (<0.06)
[2021-01-07] MEDS: Ketorolac 30 MG/ML VIAL IVP (14:01)
[2021-01-07] MEDS: Normal Saline 500 ML IV (15:14)
--- NOTE | 2021-01-07 15:27 | NUR.NOTE ---
AT 12:15 pm, patient was having SOB, chest pain/ tightness- vitals: 85/57, hr 79 r 20 and SPO2:87 on room air. patient was placed on 2L of o2 sating 94-95%. MD,TOLL TEST WORKER and Charge Nurse aware. TOLL TEST WORKER ordered 250 mls of normal saline bolus, EKG and troponin. Patient is be be transferred back into the ICU.13:35 BP: 87/60 hr 80 and spo2 95% on 2L. 13:45: Nursing report given to JAMIL Siu in the ICU unit. patient transferred at this time.
[2021-01-07 15:31] LABS: Troponin I < 0.05 ng/mL (<0.06)
[2021-01-07] MEDS: Furosemide 40 MG/4 ML VIAL IVP (16:01)
--- NOTE | 2021-01-07 16:03 | W.PULMCC ---
General Date of Service Date of service: 01/07/21 Time of Service: 15:00 Reason for Admission to ICU: Hypoxic respiratory failure and chest pain Assessment and Plan Assessment and plan (1) Bilateral pulmonary embolism: Status: Acute (2) Multilobar lung infiltrate: Status: Acute (3) Pleural effusion, right: Status: Acute (4) Acute on chronic congestive heart failure: Status: Resolved Qualifiers: Heart failure type: combined systolic and diastolic Qualified Code(s): I50.43 - Acute on chronic combined systolic (congestive) and diastolic (congestive) heart failure (5) COPD (chronic obstructive pulmonary disease): Status: Chronic Qualifiers: COPD type: emphysema Emphysema type: centrilobular Qualified Code(s): J43.2 - Centrilobular emphysema (6) Hemidiaphragm paralysis: Status: Acute Assessment and plan: This is a 60-year-old gentleman with a significant cardiac history of HFrEF with an EF of 30% who was admitted to the ICU for hypoxic respiratory failure in the setting of bilateral subsegmental pulmonary embolism. I am unsure as to what caused his acute decompensation today however the patient is doing clinically much better. He has several etiologies for his hypoxia including multi lobar infiltrates that are concerning for pneumonia, clinically a heart failure exacerbation as well as presumed right-sided hemidiaphragm paralysis. Recommendations Pulmonary: Hypoxic Respiratory Failure - supplemental O2 to maintain sats between 88-92% Multilobar infiltrates In the absence of a large fully obstructing blood clot that may result in pulmonary infarction, the assumption is that these are infectious in etiology however this patient has a completely negative procalcitonin and no prodromal symptoms of infection. I do believe it is appropriate to hold off on antibiotic therapy at this time given the clinical picture, however to have a relatively low threshold for starting basic CAP coverage. - outpatient follow up and re-imaging of these infiltrates COPD -Agree with continuing home Spiriva -recommend DuoNebs every 4 hours as needed Likely right diaphragm paralysis Can be worked up as an outpatient with SNIFF test and seated vs supine spirometry to assess need for CPAP at night. Typically patients with only 1 hemidiaphragm paralyzed to not require any intervention of this. Cardiac: HFrEF exacerbation His bedside echo today showed an approximate EF of around 30% and a plump IVC without any respiratory variation. This matched with bilateral B-lines and a right-sided pleural effusion as well as some pedal edema is concerning for CHF exacerbation. - Would recommend gentle diuresis as blood pressure tolerates. - agree with continuing home cardiac meds as tolerated - if his hypoxia were worsen or his blood pressure drops and stays low you could consider starting dobutamine -with the understanding that dobutamine will also cause peripheral vasodilation dropping afterload to improve cardiac output however this may result in furthered hypotension if he is unable to generate enough of the stroke-volume. If this is the case I would add some low-dose Levophed to dobutamine to maintain his maps but still optimize his cardiac output Renal: No acute concerns I&O: Intake & Output 01/04/21 01/05/21 01/06/21 01/07/21 23:59 23:59 23:59 23:59 Intake Total 70 / 70 691.667 / 691.667 Output Total 775 / 775 Balance 70 / 70 -83.333 / -83.333 Weight 109.9 kg 107.5 kg Daily Fluid Goal:: -500 to -1L in 24 hours GI Nutrition: Ok for diet from my perspective Date of Last Bowel Movement: 01/05/21 Infectious Disease: no acute concerns Hematologic: Bilateral subsegmental pulmonary embolisms - agree with Eliquis therapy - no sign of right heart strain on CT scan or on my bedside POCUS (and no clot in transit) - No indications for lytic therapy at this time Neurologic: Although the patient does seem to have a slightly unusual affect there are no acute concerns during the Endocrine: No acute concerns Prophylaxis: On Eliquis, no indication for GI prophylaxis at this time Code Status: Resuscitation Status Full Code Subjective Critical and life-threatening events over the past 24 hours: This is a 60-year-old gentleman with a past medical history of HFrEF (EF: 30%) who is admitted for hypoxic respiratory failure found to have small bilateral pulmonary emboli with no CT evidence of right heart strain. He was initially doing well this morning on room air and satting appropriately however this afternoon he experienced approximately a 20-minute episode of significant chest pain associated with desaturations and a slight drop in his already baseline low blood pressure. He had a repeat EKG that was done that was nonischemic. On review of his CT PE from January 06, 2021 there are small subsegmental bilateral pulmonary embolism present without evidence of right heart strain. There is also a calcified left lingular nodule present. There is a small right sided pleural effusion that is at least partially chronic in nature due to some small calcifications seen at the pleura. There is also a very large elevation of his right hemidiaphragm that may represent right-sided diaphragm paralysis. On lung windows he has a background of emphysema with significant groundglass present bilaterally as well as a right anterior upper lobe infiltrate and a left anterior upper lobe infiltrate. The patient states he is not sure what happened earlier this afternoon however does say that he is feeling much better. He is no longer having any chest pain and states his shortness of breath is significantly better. Of note the patient does have COPD. His last PFT that I can see is from 2013 showing an FEV1?FVC ratio of 65 with a lower limit of normal being 64 and an FEV1 percent predicted of 61. Although his ratio was over the limit of normal based on the flow volume loop there is certainly obstruction present. Exam Narrative Exam Narrative: Bedside POCUS: Views: parasternal long and short axis, apical 4 chambed, subxyphoid, bilateral lung windows Findings: RV is of normal size and appears to have relatively preserved function. The left ventricle appears to have significantly reduced systolic function at approximately 30%. I did not see any clot in transit. The IVC was plump and over 2 cm with no respiratory variation. There were B-lines in bilateral lungs. There was a small right-sided pleural effusion with simple appearing fluid. Const General: no acute distress Nutritional Appearance: well nourished [facility] Head: normocephalic Ears: external ears normal and no periauricular adenopathy General nose exam: nasal mucous membranes and turbinates normal Face and sinus: sinuses nontender Mouth: oropharynx normal and moist mucous membranes Teeth and gingiva: dentition normal Eyes General: appearance normal, both eyes and all related structures Pupils: PERRL Neck Neck: normal visual inspection and no lymphadenopathy Chest Chest: normal inspection of the chest Resp Effort & Inspection: normal respiratory effort Auscultation: rales (basilar) on the right, no rhonchi and no wheezes Cardio Rate: regular rate Rhythm: regular rhythm Heart Sounds: S1 normal, S2 normal and no murmurs Pulses: radial pulses present bilaterally GI Inspection: normal to inspection Palpation: soft Skin General skin exam: no rashes or lesions noted Neuro General: patient alert, patient awake and patient oriented x3 Extrem General: no clubbing, no cyanosis and edema (ankle, 1+) Laterality: bilateral Psych Mental Status: mental status grossly normal Affect: normal affect Attitude: cooperative Most Recent VS/Results Last Vital Signs Temp 35.1 C L 01/07/21 13:50 Pulse 71 01/07/21 13:50 Resp 17 01/07/21 13:50 BP 98/53 L 01/07/21 13:50 Pulse Ox 98 01/07/21 13:50 Laboratory Results - last 24 hr 01/06/21 01/06/21 01/06/21 18:55 18:55 21:50 WBC RBC Hgb Hct MCV MCH MCHC RDW Plt Count MPV Immature Gran % Neutrophils % Lymphocytes % Monocytes % Eosinophils % Basophils % Nucleated RBC % Absolute Neutrophils Absolute Lymphocytes Absolute Monocytes Absolute Eosinophils Absolute Basophils Sodium Potassium Chloride Carbon Dioxide Anion Gap BUN Creatinine Estimated GFR/1.73 m2 Glucose Calcium Ferritin Total Bilirubin AST ALT Alkaline Phosphatase Lactate Dehydrogenase Troponin I 0.05 C-Reactive Protein NT-Pro-B Natriuret Pep 45983 H Total Protein Albumin Procalcitonin COVID-19 Source NASOPHARYX SARS-CoV-2 (PCR) Negative 01/06/21 01/06/21 01/06/21 22:00 22:00 22:00 WBC RBC Hgb Hct MCV MCH MCHC RDW Plt Count MPV Immature Gran % Neutrophils % Lymphocytes % Monocytes % Eosinophils % Basophils % Nucleated RBC % Absolute Neutrophils Absolute Lymphocytes Absolute Monocytes Absolute Eosinophils Absolute Basophils Sodium 134 L Potassium 4.5 Chloride 99 Carbon Dioxide 28.3 Anion Gap 6.7 BUN 17 Creatinine 1.4 H Estimated GFR/1.73 m2 51.87 Glucose 98 Calcium 8.6 Ferritin 78 Total Bilirubin 1.8 H AST 72 H ALT 47 Alkaline Phosphatase 107 Lactate Dehydrogenase 288 H Troponin I < 0.05 C-Reactive Protein 11.67 H NT-Pro-B Natriuret Pep Total Protein 8.1 Albumin 2.8 L Procalcitonin 0.2 COVID-19 Source SARS-CoV-2 (PCR) 01/06/21 01/07/21 01/07/21 22:12 06:19 06:19 WBC 11.20 H 9.37 RBC 4.32 L 4.09 L Hgb 11.4 L 10.9 L Hct 36.8 L 35.5 L MCV 85.2 86.8 MCH 26.4 L 26.7 L MCHC 31.0 L 30.7 L RDW 15.0 H 15.0 H Plt Count 350 298 MPV 10.3 10.0 Immature Gran % 0.4 0.3 Neutrophils % 78.8 72.1 Lymphocytes % 8.8 12.6 Monocytes % 10.9 13.2 Eosinophils % 0.7 1.3 Basophils % 0.4 0.5 Nucleated RBC % 0 0 Absolute Neutrophils 8.83 H 6.75 H Absolute Lymphocytes 0.99 L 1.18 L Absolute Monocytes 1.22 H 1.24 H Absolute Eosinophils 0.08 0.12 Absolute Basophils 0.04 0.05 Sodium 137 Potassium 3.9 Chloride 101 Carbon Dioxide 31.7 Anion Gap 4.3 BUN 15 Creatinine 1.2 Estimated GFR/1.73 m2 >= 60.00 Glucose 83 Calcium 8.6 Ferritin Total Bilirubin AST ALT Alkaline Phosphatase Lactate Dehydrogenase Troponin I C-Reactive Protein NT-Pro-B Natriuret Pep Total Protein Albumin Procalcitonin COVID-19 Source SARS-CoV-2 (PCR) 01/07/21 01/07/21 13:05 15:12 WBC RBC Hgb Hct MCV MCH MCHC RDW Plt Count MPV Immature Gran % Neutrophils % Lymphocytes % Monocytes % Eosinophils % Basophils % Nucleated RBC % Absolute Neutrophils Absolute Lymphocytes Absolute Monocytes Absolute Eosinophils Absolute Basophils Sodium Potassium Chloride Carbon Dioxide Anion Gap BUN Creatinine Estimated GFR/1.73 m2 Glucose Calcium Ferritin Total Bilirubin AST ALT Alkaline Phosphatase Lactate Dehydrogenase Troponin I < 0.05 < 0.05 C-Reactive Protein NT-Pro-B Natriuret Pep Total Protein Albumin Procalcitonin COVID-19 Source SARS-CoV-2 (PCR) Review of Systems All systems reviewed & are unremarkable except as noted in HPI and below
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
[2021-01-07] MEDS: clonazePAM 0.5 MG TAB PO ×2 (19:20→21:04)
[2021-01-07] MEDS: Normal Saline Flush 10 ML SYR IVP (19:34)
--- NOTE | 2021-01-07 20:12 | W.PM.PROGNOT ---
Date of Service Date of service: 01/07/21 Time of Service: 20:13 Assessment and Plan Assessment and plan (1) Bilateral pulmonary embolism: Status: Acute Assessment and plan: CTA with the patient at time of admission. He was started on heparin intravenously initially in the ED, then placed on a apixaban. He will be monitored in the hospital for the pulmonary embolism and determine if he needs oxygen therapy. This is unprovoked pulmonary embolism and he has a history of pulmonary emboli in the past by his history. He may need further evaluation for hypercoagulable state as an outpt. (2) Multilobar lung infiltrate: Status: Acute Assessment and plan: Etiology of this is unclear. Will not treat with antibiotics at the present time. (3) Pleural effusion, right: Status: Acute Assessment and plan: Seen on bedside US performed by Dr Ramírez, chief airline radio operator. No plan to drain at this time. Follow if clinically indicated. (4) Acute on chronic congestive heart failure: Status: Resolved Assessment and plan: His bedside echo today showed an approximate EF of around 30% and a plump IVC without any respiratory variation. EF one year ago was also 30%. This matched with bilateral B-lines and a right-sided pleural effusion as well as some pedal edema is concerning for CHF exacerbation. - Lasix 40mg IV administered and ordered daily. Qualifiers: Heart failure type: combined systolic and diastolic Qualified Code(s): I50.43 - Acute on chronic combined systolic (congestive) and diastolic (congestive) heart failure (5) COPD (chronic obstructive pulmonary disease): Status: Chronic Assessment and plan: Appears stable on Spiriva. Qualifiers: COPD type: emphysema Emphysema type: centrilobular Qualified Code(s): J43.2 - Centrilobular emphysema (6) Hemidiaphragm paralysis: Status: Acute Assessment and plan: Plan outpt w/u. (7) Diabetes mellitus: Status: Chronic Assessment and plan: A1c 5.3 in September of this year. Diet controlled. AM glucose on blood draw this AM was 86. (8) CAD (coronary artery disease): Status: Chronic Assessment and plan: On BB, Prasugrel. CP today w/o troponin elevation or EKG changes. Subjective Subjective Interval history since last seen: Pt was doing well initially this AM and was transferred out of the ICU. He developed 10/10 left lower chest pain; tightness. + SOA. Was hypotensive; SBP of 87. However, SBP runs low routinely in the 90's. No nitro given d/t low BP. He refused a dose of morphine. Given Toradol and his pain did subside. EKG w/o changes. Troponin negative. Moved back to the ICU. Exam Narrative Exam Narrative: Examed at time of CP and then after CP resolved. Note reflects the later. Const General: cooperative and no acute distress Nutritional Appearance: overweight Orientation: alert and oriented x3 Eyes Sclera: sclerae normal Pupils: PERRL Neck Neck: full ROM and no JVD Chest Chest: normal palpation of entire chest wall Resp Effort & Inspection: normal respiratory effort Auscultation: clear to auscultation bilaterally Cardio Rate: regular rate Rhythm: regular rhythm Heart Sounds: S1 normal and S2 normal GI Palpation: soft and nontender Skin General skin exam: no rashes or lesions noted Rashes: no rashes Extrem General: no pedal edema and no calf tenderness Objective Last Vital Signs Temp 35.8 C L 01/07/21 19:21 Pulse 67 01/07/21 17:31 Resp 19 01/07/21 17:31 BP 92/62 L 01/07/21 17:31 Pulse Ox 92 01/07/21 17:01 Laboratory Results - last 24 hr 01/06/21 01/06/21 01/06/21 21:50 22:00 22:00 WBC RBC Hgb Hct MCV MCH MCHC RDW Plt Count MPV Immature Gran % Neutrophils % Lymphocytes % Monocytes % Eosinophils % Basophils % Nucleated RBC % Absolute Neutrophils Absolute Lymphocytes Absolute Monocytes Absolute Eosinophils Absolute Basophils Sodium 134 L Potassium 4.5 Chloride 99 Carbon Dioxide 28.3 Anion Gap 6.7 BUN 17 Creatinine 1.4 H Estimated GFR/1.73 m2 51.87 Glucose 98 Calcium 8.6 Ferritin 78 Total Bilirubin 1.8 H AST 72 H ALT 47 Alkaline Phosphatase 107 Lactate Dehydrogenase 288 H Troponin I < 0.05 C-Reactive Protein 11.67 H Total Protein 8.1 Albumin 2.8 L Procalcitonin COVID-19 Source NASOPHARYX SARS-CoV-2 (PCR) Negative 01/06/21 01/06/21 01/07/21 22:00 22:12 06:19 WBC 11.20 H RBC 4.32 L Hgb 11.4 L Hct 36.8 L MCV 85.2 MCH 26.4 L MCHC 31.0 L RDW 15.0 H Plt Count 350 MPV 10.3 Immature Gran % 0.4 Neutrophils % 78.8 Lymphocytes % 8.8 Monocytes % 10.9 Eosinophils % 0.7 Basophils % 0.4 Nucleated RBC % 0 Absolute Neutrophils 8.83 H Absolute Lymphocytes 0.99 L Absolute Monocytes 1.22 H Absolute Eosinophils 0.08 Absolute Basophils 0.04 Sodium 137 Potassium 3.9 Chloride 101 Carbon Dioxide 31.7 Anion Gap 4.3 BUN 15 Creatinine 1.2 Estimated GFR/1.73 m2 >= 60.00 Glucose 83 Calcium 8.6 Ferritin Total Bilirubin AST ALT Alkaline Phosphatase Lactate Dehydrogenase Troponin I C-Reactive Protein Total Protein Albumin Procalcitonin 0.2 COVID-19 Source SARS-CoV-2 (PCR) 01/07/21 01/07/21 01/07/21 06:19 13:05 15:12 WBC 9.37 RBC 4.09 L Hgb 10.9 L Hct 35.5 L MCV 86.8 MCH 26.7 L MCHC 30.7 L RDW 15.0 H Plt Count 298 MPV 10.0 Immature Gran % 0.3 Neutrophils % 72.1 Lymphocytes % 12.6 Monocytes % 13.2 Eosinophils % 1.3 Basophils % 0.5 Nucleated RBC % 0 Absolute Neutrophils 6.75 H Absolute Lymphocytes 1.18 L Absolute Monocytes 1.24 H Absolute Eosinophils 0.12 Absolute Basophils 0.05 Sodium Potassium Chloride Carbon Dioxide Anion Gap BUN Creatinine Estimated GFR/1.73 m2 Glucose Calcium Ferritin Total Bilirubin AST ALT Alkaline Phosphatase Lactate Dehydrogenase Troponin I < 0.05 < 0.05 C-Reactive Protein Total Protein Albumin Procalcitonin COVID-19 Source SARS-CoV-2 (PCR)
[2021-01-08] VITALS (28 sets, daily range): BP systolic 84–117; BP diastolic 53–82; PULSE 32–78; RESP 11–22; TEMP 35.7–37.2; O2SAT 80–99
--- NOTE | 2021-01-08 | DI.US_ITS ---
Exam(s) US RENAL EXAM: US RENAL CLINICAL HISTORY: MORA TECHNIQUE: Ultrasound performed using standard protocol. COMPARISON: US US EXTREMITY VENOUS BI from 01/08/2021 FINDINGS: The kidneys are normal in size and shape. Right kidney measures 8.9 x 5.4 x 6.00 cm and left kidney measures 9.9 x 5.8 x 5.1 cm. There is no evidence of hydronephrosis, nephrolithiasis, or solid renal mass. There are incidental s imple small right renal cysts noted, the largest measuring about 10 millimeters in diameter. Urinary bladder is empty. Ureteral jets were nonvisualized. IMPRESSION: No evidence of urinary tract obstruction. DATA REPOSITORY:
--- NOTE | 2021-01-08 | DI.RAD_ITS ---
Exam(s) XR PORTABLE CHEST AP EXAM: XR PORTABLE CHEST AP CLINICAL HISTORY: new hypoxia TECHNIQUE: COMPARISON: CR XR CHEST 2V PA LATERAL from 01/06/2021 FINDINGS: Portable AP chest was obtained. Heart is enlarged. Previously described right pleural effusion appe ars decreased in size from prior study. No gross new intrapulmonary consolidation. IMPRESSION: Improvement in right pleural effusion, no other significant change seen. RADIATION DOSE DELIVERED: Total DLP
--- NOTE | 2021-01-08 07:30 | RT.EKG_ITS ---
APPROVED REPORT Exam: Resting ECG Reason for Exam: LOC Patient Location: I HR:69 bpm ECG Measurements Heart Rate 69 AXIS IA 176 P 67 QRSd 135 QRS -78 QT 446 T 114 QTc 478 Conclusion Sinus rhythm...normal P axis, V-rate 60- 99 Left ventricular hypertrophy...multiple LVH criteria Probable lateral infarct, age indeterminate...Q >35mS, T neg, V5-V6 I aVL Nonspecific T abnormalities, lateral leads...T <-0.10mV, I aVL V5 V6
[2021-01-08 07:35] LABS: BUN 34 mg/dL (7-18); CREATININE 1.9 mg/dL (0.70-1.30); Calcium 8.8 mg/dL (8.5-10.1); Chloride 99 mmol/L (98-107); Estimated GFR 36.47 (mL/min/1.73m2); Glucose 138 mg/dL (74-106); Potassium 4.8 mmol/L (3.5-5.1); Sodium 135 mmol/L (136-145)
--- NOTE | 2021-01-08 08:11 | PGE_ITS ---
Date of Service Date of service: 01/08/21 Time of Service: 07:45 Assessment and Plan Assessment and plan (1) Syncope: Status: Chronic Assessment and plan: ?vagal episode The patient did describe nausea as part of his sx. Also concern for another PE. Unfortunatley, due to MORA and it being the weekend, we will not be able to obtain imaging to confirm this. Obtain venous dopplers to see if there is any residual clot. Continue to monitor in the ICU. Trending troponins, EKG. Gentle IVF. Control nausea. Start PPI in case GERD is a component of this. No evidence of ACS so far by troponins, but EKG does look a little different, though it could be lead placement issue. (2) Bilateral pulmonary embolism: Status: Acute Assessment and plan: With hypoxia. Continue apixaban. Concern for recurrent PE given new oxygen requirement since yesterday. Obtain venous doppler of BLEs to see if there is any residual DVT. Continue to monitor in the ICU. Encourage IS. Check CXR (3) Multilobar lung infiltrate: Status: Acute Assessment and plan: The patient's O2 requirement persists. Repeat CXR. Will start empiric abx. COVID-19 negative. (4) Pleural effusion, right: Status: Acute Assessment and plan: Per POCUS by Dr Ramírez, beam saw operator. Check CXR. (5) Uteut-wz-iprnfwp renal failure: Status: Acute Assessment and plan: ?Contrast nephropathy vs cardiorenal. Did not respond to diuretic challenge. Will trial fluids very gently and for 500 cc only. May require higher dose of diuretic if above is not successful. (6) Acute on chronic congestive heart failure: Status: Ruled-out Assessment and plan: EF 30%. UOP poor. Trial gentle IVF while monitoring respiratory status in the ICU. Qualifiers: Heart failure type: combined systolic and diastolic Qualified Code(s): I50.43 - Acute on chronic combined systolic (congestive) and diastolic (congestive) heart failure (7) COPD (chronic obstructive pulmonary disease): Status: Chronic Assessment and plan: Worsening O2 requirement. Check CXR. prn albuterol. Qualifiers: COPD type: emphysema Emphysema type: centrilobular Qualified Code(s): J43.2 - Centrilobular emphysema (8) Hemidiaphragm paralysis: Status: Chronic Assessment and plan: Encourage IS. Check CXR. Will need outpt w/u. (9) Diabetes mellitus: Status: Chronic Assessment and plan: Diet controlled. A1c 5.3 09/22. Change diet to carb consistent heart healthy. (10) CAD (coronary artery disease): Status: Chronic Assessment and plan: On BB, Prasugrel. Continue beta sanchez with holding parameter Ruled out for ACS, including today. (11) Discharge planning issues: Status: Acute Assessment and plan: Full code Continue to monitor in the ICU. Total Critical Care Time 60 minutes. Subjective Subjective Interval history since last seen: Mr Zuluaga became [place], diaphoretic, disoriented, c/o not having a lot of time left and I'm going. HR went down to 30s from 70s, sinus, 1 PVC during the episode. Complained of nausea. He did actually become unresponsive, responded to sternal rubs and regained consciousness. Solomon harriet called. Arrived at scene. By the time of arrival, HR back to 70s. BG was 138 on this am's labs. Denies CP, denied abdominal pain. Continued to report dizziness. Did have a BM last night. UOP was 300 cc over 16 hrs. Narayanan inserted - 0 cc came out. Desaturated to 67 % just on 3L of O2 while nodding off. Never had a sleep study/does not use CPAP. Nursing noted an apneic episode. At 11 am, the patient denies dizziness, chest pain, nausea, shortness of breath. Exam Narrative Exam Narrative: General: Pleasant middle-aged male who looks better on recheck at 11 am, but does appear diaphoretic, asleep, easily arounsable, does appear to have an KYLE breathing pattern HEENT: EOMI, MMM Heart: RRR, +KIM Lungs: rales at B bases Abdomen: soft, nontender, nondistended Extremities: Wound R tibial surface - dressed - c/d/i Objective Last Vital Signs Temp 36.0 C L 01/08/21 07:29 Pulse 70 01/08/21 07:29 Resp 13 01/08/21 07:29 BP 98/60 L 01/08/21 07:29 Pulse Ox 99 01/08/21 07:29 Laboratory Results - last 24 hr 01/07/21 01/07/21 01/08/21 13:05 15:12 06:35 Sodium 135 L Potassium 4.8 D Chloride 99 Carbon Dioxide 28.0 Anion Gap 8.0 BUN 34 H D Creatinine 1.9 H D Estimated GFR/1.73 m2 36.47 Glucose 138 H Calcium 8.8 Troponin I < 0.05 < 0.05 EKG: HR 75, NSR, prior EKG of poor quality, question of lead placement as voltages do appear quite different on this EKG. CXR pending
[2021-01-08] MEDS: Lidocaine 2% Jelly 11 ML SYR (08:32)
[2021-01-08] MEDS: Lidocaine 2% Jelly 11 ML SYR UR (08:32)
[2021-01-08] MEDS: Ondansetron 4 MG/2 ML VIAL (08:33)
[2021-01-08 08:57] LABS: Magnesium 2.5 mg/dL (1.8-2.4); Troponin I < 0.05 ng/mL (<0.06)
[2021-01-08] MEDS: Pantoprazole 40 MG VIAL IVP (09:08)
[2021-01-08] MEDS: Normal Saline 250 ML IV (09:08)
[2021-01-08] MEDS: Lisinopril 5 MG TAB PO (09:09)
[2021-01-08] MEDS: Metoprolol CR 100 MG TABCR PO (09:09)
[2021-01-08] MEDS: Atorvastatin 40 MG TAB PO (09:09)
[2021-01-08] MEDS: Gabapentin 600 MG TAB 1200 MG PO ×2 (09:09→19:54)
[2021-01-08] MEDS: Apixaban 5 MG TAB 10 MG PO ×2 (09:09→19:51)
[2021-01-08] MEDS: Methadone 10 MG TAB 30 MG PO (09:09)
[2021-01-08] MEDS: Aspirin E.C. 81 MG TABEC PO (09:09)
[2021-01-08] MEDS: Normal Saline Flush 10 ML SYR IVP ×2 (09:10→21:36)
[2021-01-08 10:31] LABS: Troponin I < 0.05 ng/mL (<0.06)
[2021-01-08] MEDS: Normal Saline 1,000 ML 75 ML IV (11:00)
--- NOTE | 2021-01-08 11:00 | DI.US_ITS ---
Exam(s) US EXTREMITY VENOUS BI EXAM: US EXTREMITY VENOUS BI CLINICAL HISTORY: Possible recurrent PE, concern for residual DVT TECHNIQUE: Ultrasound performed using standard protocol. COMPARISON: US US ECHOCARDIOGRAM from 12/09/2019 FINDINGS: Duplex venous ultrasound of the lower extremities was performed according to the usual protocol. On the left, there is thrombus of the proximal femoral vein and the distal femoral vein, nonocclusive . There is thrombosis of the greater saphenous vein throughout its entire course which is probably o cclusive. On the right, there is deep venous thrombosis noted in a posterior tibial vein in the calf about 8 cm in length. The right greater saphenous vein shows thrombosis in the mid thigh, remote from the orig in of the GSV period IMPRESSION: Bilateral DVT as described above. DATA REPOSITORY:
--- NOTE | 2021-01-08 11:19 | WOUNDCONS_ITS ---
- If Service Date Differs Date of service: 01/08/21 Time of Service: 10:35 Wound Initial Evaluation Narrative: Patient is a 60 yom ,who presents here from his PCP office after 10 days of left sided chest pain and a non- productive cough. Patient has an elevated D-dimer, and is taken to the ICU with bilateral PE's. 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 Patient stated he has been seen weekly at [facility] wound clinic weekly for an undetermined amount of time. He stated they clean it with something, put the stuff in it that is in your finger nails. Then cover with that bandage that is on my leg.(mepilex border). Then he describes a covering that sounds like compression. Discussing this with Dr. Marmolejo, based on presentation and condition, she agrees to avoid conmpression. [facility] is contacted for verification, and there is no one in the clinic. This is discussed with the patient he agrees to the wound consult and he signs consent form. Patient's H&P, progress notes, labs, and other pertinent data were reviewed prior to speaking to the patient. - Wound Right Anterior Tib/Fib(lower leg) Wound Type: Statis Ulcer Wound General Appearance: Reddened, Draining, Unapproximated Wound Bed Greatest Portion: Pale [place] Wound Bed Lesser Portion: Yellow (Slough) Wound Surrounding Tissue Appearance: [place], Edges Rolled Percent of Wound Bed Granulated/Red: 0 Percent of Wound Bed Slough/Yellow: 0 Percent of Wound Bed Eschar/Black: 0 Wound Length: 4.3 cm Wound Width: 0.9 cm Wound Depth: 0.3 cm Wound Drainage Amount: Minimal Wound Drainage Odor: None/Absent Wound Drainage Description: Other (yellow) Wound Topical Solution/Irrigant: Saline Irrigant Wound Debridement Method: Mechanical Wound Debridement Result: Other (pink and pale) Wound Debridement Amount of Tissue Removed: Minimal (slight amount of yellow slough from the distal portion of the wound) - Circulation, Sensation, Motion Peripheral Pulse Strength: Normal Capillary Refill: Less than 3 seconds Sensation Description: Numbness (at the distal portion of the foot) Skin Temperature: Cool Skin Color: Pale Additional Other Comments: patient has a general pallor to the entire body - HARLAN Comment:: compression is contraindicated - Pain Pain Level: 0 (denied pain at the site) Patient who has a chronic stasis wound that in his words goes back 5 years,and is [facility]. He performs dressing changes himself in between visits at the clinic. Patient denied pain at the site of the wound but says the wound closes and opens. - Treatment/Dressing Change Topicals/Ointments: None Cleanse With: Cleanser with Surfactant Dressing Types: Collagen (Promagran Prism, Mepilex (contact layer) - Recomendation Recomendation:: Cleanse wound with Skintegrity and gauze. Then Pat dry. Apply a slightly moistened piece of [place] prism to the wound bed. Secure with Mepilex border. Change every 3 days or prn. Physcian/Nurse Practioner Notified: Yes (Dr. Marmolejo) Treatment Time - Time Total Time Spent with Patient: 1 hour - Patient Will be Seen Weekly Treatment: 2x/wk - For: For:: 1 week
--- NOTE | 2021-01-08 12:01 | DI.VRAD_ITS ---
PROCEDURE INFORMATION: Exam: XR Chest Exam date and time: 01/08/2021 10:56 AM Age: 60 years old Clinical indication: Other: New hypoxia TECHNIQUE: Imaging protocol: XR of the chest. Views: 1 view. COMPARISON: CR XR CHEST 2V PA LATERAL 01/06/2021 11:47 AM FINDINGS: Limitations: Evaluation is somewhat limited due to low lung volumes and exclusion of the right costophrenic sulcus. Lungs: Mild prominence of the central pulmonary vasculature. There is an approximately 1.6 cm calcified nodule in the left midlung. Mild patchy airspace consolidation in the medial aspect of the right upper lobe may was better seen on CT, and demonstrates suggestion of interval improvement. . Pleural spaces: Trace left pleural effusion. No definite right pleural effusion. Heart/Mediastinum: Mild cardiomegaly. Diaphragm: Mildly elevated right hemidiaphragm. Bones/joints: Unremarkable. IMPRESSION: 1. Mild pulmonary vascular congestion. 2. Trace left pleural effusion. 3. Probable improvement in mild patchy right upper lobe airspace consolidation which may represent resolving pneumonia. Dictated and Authenticated by: Erica Webb MD. Ordering:CLINTON Maciel MD
[2021-01-08] MEDS: PIPERACILLIN/TAZO 3.375 GM in Normal Saline 50 ML IVPB ×2 (13:11→17:40)
[2021-01-08 15:23] LABS: BUN 41 mg/dL (7-18); Calcium 8.6 mg/dL (8.5-10.1); Chloride 100 mmol/L (98-107); Estimated GFR 34.37 (mL/min/1.73m2); Glucose 165 mg/dL (74-106); Potassium 4.8 mmol/L (3.5-5.1); Sodium 134 mmol/L (136-145)
[2021-01-08] MEDS: Methadone 10 MG TAB 20 MG PO (19:51)
[2021-01-08] MEDS: clonazePAM 1 MG TAB PO (19:54)
[2021-01-08] MEDS: Docusate Sodium 100 MG CAP PO (19:54)
[2021-01-09] VITALS (35 sets, daily range): BP systolic 74–106; BP diastolic 28–76; PULSE 58–135; RESP 10–30; TEMP 35.7–36.7; O2SAT 86–95
[2021-01-09] MEDS: PIPERACILLIN/TAZO 3.375 GM in Normal Saline 50 ML IVPB ×4 (02:50→20:14)
[2021-01-09] MEDS: Pantoprazole 40 MG VIAL IVP (07:33)
[2021-01-09] MEDS: Apixaban 5 MG TAB 10 MG PO ×2 (07:33→20:21)
[2021-01-09] MEDS: Aspirin E.C. 81 MG TABEC PO (07:33)
[2021-01-09] MEDS: Methadone 10 MG TAB 30 MG PO (07:34)
[2021-01-09] MEDS: Atorvastatin 40 MG TAB PO (07:34)
[2021-01-09] MEDS: Docusate Sodium 100 MG CAP PO ×2 (07:34→20:20)
[2021-01-09] MEDS: Gabapentin 600 MG TAB 1200 MG PO (07:34)
[2021-01-09 07:36] LABS: Abs Immature Grans 0.04 10^3/uL (0.0-0.06); Absolute Basophil Count 0.04 10^3/uL (0.0-0.2); Absolute Eosinophil Count 0.02 10^3/uL (0.0-0.7); Absolute Lymphocyte Count 0.91 10^3/uL (1.2-3.4); Absolute Monocyte Count 1.17 10^3/uL (0.1-0.8); Basophils % 0.3; Eosinophils % 0.2; HCT 34.4 % (40.0-50.0); HGB 10.7 g/dL (13.5-17.5); Immature Grans % 0.3; Lymphocytes % 7.6; MCH 26.6 pg (27.0-33.0); MCHC 31.1 % (32.0-36.0); MCV 85.4 fL (80-95); MPV 10.4 fL (8.0-11.0); Monocytes % 9.8; Neutrophils % 81.8; Nucleated RBC 0 %; Platelet Count 341 10^3/uL (130-400); RBC 4.03 10^6/uL (4.36-5.78); RDW 15.4 % (11.8-14.1); RDW-SD 47.8 fL; WBC 11.92 10^3/uL (4.4-10.8)
[2021-01-09 07:40] LABS: Absolute Neutrophil Count 9.75 10^3/uL (1.2-6.7)
[2021-01-09 07:51] LABS: Anion Gap 7.8 mmol/L (3-11); BUN 48 mg/dL (7-18); CO2 27.2 mmol/L (21.0-32.0); CREATININE 2.1 mg/dL (0.70-1.30); Calcium 8.3 mg/dL (8.5-10.1); Chloride 100 mmol/L (98-107); Estimated GFR 32.49 (mL/min/1.73m2); Glucose 87 mg/dL (74-106); Magnesium 2.3 mg/dL (1.8-2.4); Potassium 4.5 mmol/L (3.5-5.1); Sodium 135 mmol/L (136-145)
--- NOTE | 2021-01-09 08:21 | PGE_ITS ---
Date of Service Date of service: 01/09/21 Time of Service: 11:10 Assessment and Plan Assessment and plan (1) Bilateral pulmonary embolism: Status: Acute Assessment and plan: With hypoxia. Continue apixaban. Obtain echo. Will speak with PE team at [facility] re need to change anticoagulation given event yesterday and presence of BLE DVTs. Concern for recurrent PE. Continue to monitor in the ICU. Encourage IS. (2) Acute on chronic congestive heart failure: Status: Ruled-out Assessment and plan: EF 30%. UOP poor and was minimally responsive to IVF. D/c IVF and start lasix gtt. Trial gentle IVF while monitoring respiratory status in the ICU. Qualifiers: Heart failure type: combined systolic and diastolic Qualified Code(s): I50.43 - Acute on chronic combined systolic (congestive) and diastolic (congestive) heart failure (3) Wajkq-fl-ntpmypt renal failure: Status: Acute Assessment and plan: ?Contrast nephropathy vs cardiorenal. Cr not better with IVF. D/c IVF as O2 requirement was worse on them May require higher dose of diuretic if above is not successful. (4) DVT, bilateral lower limbs: Status: Acute (5) Syncope: Status: Chronic Assessment and plan: Likely a vagal episode, but there is a concern for a recurrent PE. The patient did describe nausea as part of his sx and did have just a large BM before the episode. Cannot repeat CTA due to Yoly. Continue to monitor in the ICU. Prevent constipation and nausea - PPI, bowel regimen. No evidence of ACS so far by troponins. (6) Multilobar lung infiltrate: Status: Acute Assessment and plan: Initiated on zosyn empirically - continue. Better clinically. Off O2. Encourage IS. COVID-19 negative. (7) Pleural effusion, right: Status: Acute Assessment and plan: Per POCUS by Dr Ramírez, transcription specialist. Improved on repeat CXR. Diuresing gently. (8) COPD (chronic obstructive pulmonary disease): Status: Chronic Assessment and plan: On room air. No need for steroids - not in acut exacerbation. Continue prn albuterol. Qualifiers: COPD type: emphysema Emphysema type: centrilobular Qualified Code(s): J43.2 - Centrilobular emphysema (9) Hemidiaphragm paralysis: Status: Chronic Assessment and plan: Encourage IS. (10) Diabetes mellitus: Status: Chronic Assessment and plan: Diet controlled. A1c 5.3 09/22. Patient requested diet be changed to regular. (11) CAD (coronary artery disease): Status: Chronic Assessment and plan: On BB, Prasugrel as outpatinet. Prasugrel is not currently being given due to being on anticoagulation and asa. Will check with cardiology if he needs to be on it. Continue beta sanchez with holding parameter No ACS. (12) Discharge planning issues: Status: Acute Assessment and plan: Full code Continue to monitor in the ICU. Total Critical Care Time 60 minutes. Subjective Subjective Interval history since last seen: Mr Zuluaga states he is feeling better today. I don't feel like I am going to . Denies dizziness, chest pain, shortness of breath, nausea. On Room air this morning. Metoprolol held this am due to BP (84/60), manual BP matches that, HR in the 60s. Got mexilitine. MAP of 65. odd this morning, mental status jean baptiste, per nurse. UOP 425 cc in 17 hrs. Exam Narrative Exam Narrative: General: Pleasant middle-aged male who looks much better today HEENT: EOMI, MMM Heart: RRR, +KIM Lungs: rales at B bases, improved Abdomen: soft, nontender, nondistended Extremities: Wound R tibial surface - dressed - c/d/i, no edema BLE's Objective Last Vital Signs Temp 35.7 C L 01/09/21 07:52 Pulse 65 01/09/21 07:52 Resp 15 01/09/21 07:52 BP 83/52 L 01/09/21 07:52 Pulse Ox 95 01/09/21 07:52 Laboratory Results - last 24 hr 01/08/21 01/08/21 01/08/21 08:20 10:10 15:08 WBC RBC Hgb Hct MCV MCH MCHC RDW Plt Count MPV Immature Gran % Neutrophils % Lymphocytes % Monocytes % Eosinophils % Basophils % Nucleated RBC % Absolute Neutrophils Absolute Lymphocytes Absolute Monocytes Absolute Eosinophils Absolute Basophils Sodium 134 L Potassium 4.8 Chloride 100 Carbon Dioxide 28.0 Anion Gap 6.0 BUN 41 H Creatinine 2.0 H Estimated GFR/1.73 m2 34.37 Glucose 165 H Calcium 8.6 Magnesium 2.5 H Troponin I < 0.05 < 0.05 01/09/21 01/09/21 06:15 06:15 WBC 11.92 H RBC 4.03 L Hgb 10.7 L Hct 34.4 L MCV 85.4 MCH 26.6 L MCHC 31.1 L RDW 15.4 H Plt Count 341 MPV 10.4 Immature Gran % 0.3 Neutrophils % 81.8 Lymphocytes % 7.6 Monocytes % 9.8 Eosinophils % 0.2 Basophils % 0.3 Nucleated RBC % 0 Absolute Neutrophils 9.75 H Absolute Lymphocytes 0.91 L Absolute Monocytes 1.17 H Absolute Eosinophils 0.02 Absolute Basophils 0.04 Sodium 135 L Potassium 4.5 Chloride 100 Carbon Dioxide 27.2 Anion Gap 7.8 BUN 48 H Creatinine 2.1 H Estimated GFR/1.73 m2 32.49 Glucose 87 D Calcium 8.3 L Magnesium 2.3 Troponin I Objective Narrative Objective Narrative: CXR 01/08/21: Improvement in right pleural effusion, no other significant change seen. US renal: No evidence of urinary tract obstruction. Venous doppler BLE's: On the left, there is thrombus of the proximal femoral vein and the distal femoral vein, nonocclusive. There is thrombosis of the greater saphenous vein throughout its entire course which is probably occlusive. On the right, there is deep venous thrombosis noted in a posterior tibial vein in the calf about 8 cm in length. The right greater saphenous vein shows thrombosis in the mid thigh, remote from the origin of the GSV period
--- NOTE | 2021-01-09 10:34 | PHACLINREV_ITS ---
Pharmacy Admission Review - Admission Clinical Review (Last Reviewed 01/06/21 @ 18:34 by Manan Payton MD) [id number]-[id number]-ahuugoe renal failure (Acute) Discharge planning issues (Acute) Bilateral pulmonary embolism (Acute) Multilobar lung infiltrate (Acute) Pleural effusion, right (Acute) ticagrelor [From Brilinta] Adverse Reaction (Severe, Unverified 01/06/21 18:19) fluoxetine HCl [From Prozac] Adverse Reaction (Intermediate, Unverified 01/06/21 18:19) FELT AWFUL duloxetine Adverse Reaction (Mild, Unverified 01/06/21 18:19) DOESN'T FEEL WELL Resuscitation Status Full Code Height 6 ft 2 in Weight 107.4 kg Pulmonary Embolism and DVT-Bilateral - Comments Comments/Follow Ups: Bilateral DVTin addition to PE. BP's soft, syncope/vasal episode possibly. Pending order for Mexelitine 200mg Q8h (Pharmacy stocks the 150mg, which is being used as inpatient) ?patient unable to bring in home meds. Zosyn empirically for lung infiltrates, slight improvement by repeat chest xray. Blood cultures no growth x48h. Slight fluid overload, so low dose Lasix infusion due to MORA. EF 30%. MD aware patient's own Prasugrel is also not available. Consulting w/[facility] cardiology - Renal Dosing Renal Dosing: BUN 48 mg/dL (7-18) H 01/09/21 06:15 Creatinine 2.1 mg/dL (0.70-1.30) H 01/09/21 06:15 Medications needing adjustments: Intervened (CrCl~44ml/min, worsening since admission, Gabapentin dose decreased from 2400mg/day to 900mg/day-MDAware of significant decrease) List of meds needing interventions: watch Zosyn dosing if CrCl<40ml/min - Anticoagulation Anticoagulation: Hgb 10.7 g/dL (13.5-17.5) L 01/09/21 06:15 Hct 34.4 % (40.0-50.0) L 01/09/21 06:15 Plt Count 341 10^3/uL (130-400) 01/09/21 06:15 Creatinine 2.1 mg/dL (0.70-1.30) H 01/09/21 06:15 Therapeutic Anticoagulation: Reviewed (Full dose Apixiban 10mg po BID x14 doses...then taper) Medications: Apixaban - Opiate Usage Evaluate Pain Scale/Pains Meds: Reviewed (Methadone home dose for chronic pain, currently zero pain) Scheduled Bowel Reg ordered if on Opiates?: Yes (no BM since admission) - Relevant Labs Sodium 135 mmol/L (136-145) L 01/09/21 06:15 Potassium 4.5 mmol/L (3.5-5.1) 01/09/21 06:15 Chloride 100 mmol/L (98-107) 01/09/21 06:15 Magnesium 2.3 mg/dL (1.8-2.4) 01/09/21 06:15 C-Reactive Protein 11.67 mg/dL (0.0-0.3) H 01/06/21 22:00 Electrolytes, C-Reactive P, ESR: Reviewed (C-reactive 11.67 on 01/06/21, not re- drawn, Procal 0.2 also on 01/06/21, Pro-Bnp elevated) - DM Control DM Control: Glucose 87 mg/dL (74-106) D 01/09/21 06:15 Insulin Dosing: N/A - Heart Failure/DC Heart Failure/DC: Troponin I < 0.05 ng/mL (<0.06) 01/08/21 10:10 NT-Pro-B Natriuret Pep 84134 pg/mL (<300) H 01/06/21 18:55 EF%, DAVID's, B-Blockers, Diuretics: Reviewed (Lasix infusion, Toprol with hold parameters) - BP Control BP Control: Blood Pressure [Left Arm] 83/52 Blood Pressure 83/52 Blood Pressure 90/62 Blood Pressure 93/59 Blood Pressure 104/76 Blood Pressure 84/45 If elevated: Reviewed (low, hold parameters on Toprol) - Qtc Review If Elevated: Reviewed (QTC 452) - IV to PO Switch IV Medications: Reviewed (Protonix, Zofran are IVP) - Home Meds Home Med List reviewed: Reviewed (Methadone for chronic pain) Relevent Home Meds Not ordered & why?: Lisinopril dc'd for low BP, Spironolactone not ordered - Current meds Current Medication Order Review: Reviewed (Clonazepam home dose changed to HS only) - Comments Comments/Follow Ups: Wound care nurse evaluated for open martinez wound Antibiotic Activity - Pharmacy Antibiotic Review Pharmacy Antibiotic Activity: 48 hour review - Antibiotic Information Antibiotic Review Info: Zosyn for bilateral infiltrates
--- NOTE | 2021-01-09 10:52 | RT.EKG_ITS ---
APPROVED REPORT Exam: Resting ECG Reason for Exam: rhythm change Patient Location: I HR:65 bpm ECG Measurements Heart Rate 65 AXIS [place] 183 P 57 QRSd 143 QRS -28 QT 477 T 88 QTc 497 Conclusion Sinus rhythm...normal P axis, V-rate 60- 99 IVCD, consider LBBB...QRSd>120, notch/slur R I aVL V5-6
--- NOTE | 2021-01-09 11:28 | RESPIRATORY ---
Pt says he does not take any inhalers at home, and has never taken spiriva. Will follow up with pulmonary on Sunday01/10/21
[2021-01-09] MEDS: Gabapentin 300 MG CAP PO (20:19)
[2021-01-09] MEDS: clonazePAM 1 MG TAB PO (20:20)
[2021-01-09] MEDS: Methadone 10 MG TAB 20 MG PO (20:20)
[2021-01-10] VITALS (20 sets, daily range): BP systolic 90–130; BP diastolic 47–97; PULSE 66–75; RESP 13–24; TEMP 35.9–36; O2SAT 90–99
[2021-01-10] MEDS: PIPERACILLIN/TAZO 3.375 GM in Normal Saline 50 ML IVPB (01:14)
--- NOTE | 2021-01-10 07:27 | PUCC_ITS ---
General Date of Service Date of service: 01/10/21 Time of Service: 08:00 Reason for Admission to ICU: Pulmonary embolism Assessment and Plan Assessment and plan (1) Bilateral pulmonary embolism: Status: Acute (2) Multilobar lung infiltrate: Status: Acute (3) Pleural effusion, right: Status: Acute (4) Acute on chronic congestive heart failure: Status: Ruled-out Qualifiers: Heart failure type: combined systolic and diastolic Qualified Code(s): I50.43 - Acute on chronic combined systolic (congestive) and diastolic (congestive) heart failure (5) COPD (chronic obstructive pulmonary disease): Status: Chronic Qualifiers: COPD type: emphysema Emphysema type: centrilobular Qualified Code(s): J43.2 - Centrilobular emphysema (6) Hemidiaphragm paralysis: Status: Chronic Assessment and plan: This is a 60-year-old gentleman with a significant cardiac history of HFrEF with an EF of 30% who was admitted to the ICU for hypoxic respiratory failure in the setting of bilateral subsegmental pulmonary embolism. I am unsure as to what caused his acute decompensation today however the patient is doing clinically much better. He has several etiologies for his hypoxia including multi lobar infiltrates that are concerning for pneumonia, clinically a heart failure exacerbation as well as presumed right-sided hemidiaphragm paralysis. Recommendations Pulmonary: Hypoxic Respiratory Failure - resolved Multilobar infiltrates Likely non-infectious - outpatient follow up and re-imaging of these infiltrates COPD -patient has apparently neve taken Spiriva, so fine to hold off -recommend DuoNebs every 4 hours as needed Likely right diaphragm paralysis Can be worked up as an outpatient with SNIFF test and seated vs supine spirometry to assess need for CPAP at night. Typically patients with only 1 hemidiaphragm paralyzed to not require any intervention of this. Cardiac: HFrEF exacerbation His bedside echo today showed an approximate EF of around 30% and a plump IVC without any respiratory variation. This matched with bilateral B-lines and a right-sided pleural effusion as well as some pedal edema is concerning for CHF exacerbation. - improved -outpatient f/u Renal: No acute concerns I&O: Intake & Output 01/07/21 01/08/21 01/09/21 01/10/21 23:59 23:59 23:59 23:59 Intake Total 1031.667 / 4547.098 9760.000 / 2995.000 706.542 / 706.542 50 / 50 Output Total 775 / 775 625 / 625 1075 / 1075 575 / 575 Balance 256.667 / 908.885 5773.000 / 2370.000 -368.458 / -368.458 -525 / -525 Weight 107.5 kg 107.4 kg Daily Fluid Goal:: even to slightly negative GI Nutrition: OK for diet as tolerated Date of Last Bowel Movement: 01/08/21 Infectious Disease: No acute concerns Hematologic: Bilateral subsegmental pulmonary emboli - agree with Eliquis therapy - no sign of right heart strain on CT scan or on my bedside POCUS (and no clot in transit) - No indications for lytic therapy at this time Neurologic: No acute concerns Endocrine: No acute concerns Prophylaxis: On Eliquis, no GI ppx needed Code Status: Resuscitation Status Full Code Subjective Critical and life-threatening events over the past 24 hours: Over the weekend he had a vagal episode that caused him to experience bradycardia that self resolved. He is feeling well today and anxious to go home. Exam Narrative Exam Narrative: Bedside POCUS 01/07/21: Views: parasternal long and short axis, apical 4 chambed, subxyphoid, bilateral lung windows Findings: RV is of normal size and appears to have relatively preserved function. The left ventricle appears to have significantly reduced systolic function at approximately 30%. I did not see any clot in transit. The IVC was plump and over 2 cm with no respiratory variation. There were B-lines in bilateral lungs. There was a small right-sided pleural effusion with simple appearing fluid. Const General: no acute distress Nutritional Appearance: well nourished [facility] Head: normocephalic Ears: external ears normal and no periauricular adenopathy General nose exam: nasal mucous membranes and turbinates normal Face and sinus: sinuses nontender Mouth: oropharynx normal and moist mucous membranes Teeth and gingiva: dentition normal Eyes General: appearance normal, both eyes and all related structures Pupils: PERRL Neck Neck: normal visual inspection and no lymphadenopathy Chest Chest: normal inspection of the chest Resp Effort & Inspection: normal respiratory effort Auscultation: rales (basilar) on the right, no rhonchi and no wheezes Cardio Rate: regular rate Rhythm: regular rhythm Heart Sounds: S1 normal, S2 normal and no murmurs Pulses: radial pulses present bilaterally GI Inspection: normal to inspection Palpation: soft Skin General skin exam: no rashes or lesions noted Neuro General: patient alert, patient awake and patient oriented x3 Extrem General: no clubbing, no cyanosis and edema (ankle, 1+) Laterality: bilateral Psych Mental Status: mental status grossly normal Affect: normal affect Attitude: cooperative Most Recent VS/Results Last Vital Signs Temp 36.0 C L 01/10/21 03:45 Pulse 70 01/10/21 06:46 Resp 19 01/10/21 07:00 BP 107/47 L 01/10/21 06:46 Pulse Ox 90 L 01/10/21 06:46 Laboratory Results - last 24 hr 01/09/21 01/09/21 06:15 06:15 WBC 11.92 H RBC 4.03 L Hgb 10.7 L Hct 34.4 L MCV 85.4 MCH 26.6 L MCHC 31.1 L RDW 15.4 H Plt Count 341 MPV 10.4 Immature Gran % 0.3 Neutrophils % 81.8 Lymphocytes % 7.6 Monocytes % 9.8 Eosinophils % 0.2 Basophils % 0.3 Nucleated RBC % 0 Absolute Neutrophils 9.75 H Absolute Lymphocytes 0.91 L Absolute Monocytes 1.17 H Absolute Eosinophils 0.02 Absolute Basophils 0.04 Sodium 135 L Potassium 4.5 Chloride 100 Carbon Dioxide 27.2 Anion Gap 7.8 BUN 48 H Creatinine 2.1 H Estimated GFR/1.73 m2 32.49 Glucose 87 D Calcium 8.3 L Magnesium 2.3 Review of Systems All systems reviewed & are unremarkable except as noted in HPI and below Constitutional Constitutional: Denies fever(s) Cardiovascular Cardiovascular: Denies chest pain and Denies dyspnea Respiratory Respiratory: Denies dyspnea
[2021-01-10 07:33] LABS: BUN 47 mg/dL (7-18); CREATININE 1.6 mg/dL (0.70-1.30); Calcium 8.6 mg/dL (8.5-10.1); Chloride 99 mmol/L (98-107); Estimated GFR 44.46 (mL/min/1.73m2); Glucose 97 mg/dL (74-106); Magnesium 2.3 mg/dL (1.8-2.4); Potassium 4.5 mmol/L (3.5-5.1); Sodium 134 mmol/L (136-145)
--- NOTE | 2021-01-10 08:00 | DI.US_ITS ---
APPROVED REPORT EXAM: Comprehensive 2D, Doppler, and color-flow Echocardiogram Patient Location: In-Patient Room/Bed: [id number] Thermostatic Controls Supervisor: Santa Azevedo RDCS (AE) Indications: Acute PE, COPD, CAD Echo Enhancing Agent Comments: Patient terminated exam before definity could be administered. Other Information Study Quality: Technically Difficult. Technically limited study due to inability to position patient, body habitus, uncooperative patient. Conclusion Left Ventricle : Left ventricle is moderately dilated. Left ventricle apex is not well visualized. Le ft ventricular systolic function is severely decreased. There is normal left ventricular wall thickne ss. Regional wall motion abnormalities cannot be excluded. LVEF is 19%. Cannot rule out apical thro mbus. Echo contrast was recommended but the patient refused. Right Ventricle : Right ventricle is not well visualized. Right ventricular systolic function could n ot be assessed. The RVSP is 50.3 mmHg. Atria : Left atrium is moderately dilated. Right atrium is moderately dilated. Mitral Valve : Moderate mitral annular calcification. Moderate to severe mitral regurgitation No evid ence of mitral valve stenosis. Please see remainder of study for further details. Compared to echocardiogram from 12/09/2019, the patient's ejection fraction has decreased from 30% now down to 20%. Mitral regurgitation remains moderate to severe. Wall motion Left Ventricle Left ventricle is moderately dilated. Left ventricle apex is not well visualized. Left ventricular sy stolic function is severely decreased. There is normal left ventricular wall thickness. Regional wall motion abnormalities cannot be excluded. There is no ventricular septal defect visualized. LVEF is 1 9%. Right Ventricle Right ventricle is not well visualized. Right ventricular systolic function could not be assessed. Th e RVSP is 50.3 mmHg. Atria Left atrium is moderately dilated. Right atrium is moderately dilated. The interatrial septum is inta ct with no evidence for an atrial septal defect. Aortic Valve The Aortic valve is sclerotic. Aortic valve is trileaflet. There is no aortic valvular stenosis. No a ortic regurgitation is present. Mitral Valve Moderate mitral annular calcification. No evidence of mitral valve stenosis. Moderate to severe abdulkadir l regurgitation Tricuspid Valve The tricuspid valve is normal in structure. There is no tricuspid valve stenosis. Moderate tricuspid regurgitation. Pulmonic Valve The pulmonary valve is normal in structure. There is no pulmonic valvular stenosis. There is no pulmo el valvular regurgitation. Great Vessels The aortic root is normal in size. The ascending aorta is normal in size. The IVC collapses <50% with inspiration. Pericardium There is no pericardial effusion. 2D Dimensions IVSD d PLAX 0.87 cm M: 0.6-1.2 LV Vol A2C d MOD 217.7 mL LVPW d PLAX 0.92 cm M: 0.6 - 1.2 LV Vol A4C d MOD 217.7 mL LVID d PLAX 7.17 cm M: 4.2 - 5.8 LA vol/ BSA A2C s A-L 37.8 mL/m2 LVDs 6.50 cm M: 2.5 - 4.0 LA vol/ BSA A4C s A-L 53.5 mL/m2 Ao Root d 2.87 cm M: 3.1 - 3.7 LA Vol/ BSA Biplane s A-L 48.0 mL/m2 RA Area A4C 25.69 cm2 LA Area A4C s MOD 32.16 cm2 RA Vol/ BSA A4C s A-L 35.4 mL/m2 LA Area A2C s MOD 25.34 cm2 Ao Asc Diam d 3.17 cm M: 2.6 - 3.4 LV EF A4C MOD 17.9 % LV EF Teichholz 18.9 % LV EF A2C MOD 20.0 % LVEF (Bell's) 19.41 % M: 52 - 72 LV EF Biplane MOD 19.4 % LV Volume 159.37 mL M: 62 - 150 SV 43.30 mL LV Volume Index 68.39 mL/m2 M: 34 - 74 SV Index 18.57 mL/m2 LV Vol Biplane MOD 223.1 mL FS 8.85 % M-Mode TAPSE 2.07 cm (M/F) >1.7 LV Diastology MV E' medial 0.067 (>0.07 m/s) E/A Ratio 1.9 LV E/e MED 15.80 (<14) MV E Vmax 1.06 (0.4-1.3 m/s) MV E' lateral 0.170 (>0.1 m/s) MV A Vmax 0.55 (0.4-1.3 m/s) LV E/e LAT 6.20 (<14) MV E/A Ratio 1.89 MV E/E' medial 15.80 MV E/E' lateral 6.22 Aortic Valve LVOT Area 2.92 cm2 AoV Area Vmax 2.77 cm2 LVOT Vmax 1.00 m/s AoV Area/ BSA (Vmax) 1.19 cm2/m2 LVOT Mean Elvis. 0.66 m/s PAYTON Mean Elvis. 2.52 cm2 LVOT Peak Grad 4.0 mmHg PAYTON Mean Elvis. Index 1.08 cm2/m2 LVOT Mean Grad 2.0 mmHg LVOT VTI 0.154 m LVOT Diam s 1.90 cm AoV Vmax 1.06 m/s Velocity Ratio 0.94 AoV Mean Elvis. 0.76 m/s AoV Peak Grad 4.5 mmHg LVOT SV 44.95 mL AoV Mean Grad 2.5 mmHg AoV VTI 0.157 m AoV Area VTI 2.87 cm2 AoV Area/ BSA (VTI) 1.23 cm/m2 Mitral Valve MV DT 160 (160-240 msec) MR Vmax 3.81 m/s MV PHT 46 msec MR VTI 1.068 m MV Area PHT 4.74 cm2 MR Peak Grad 58.2 mmHg MV VTI 0.296 m MR Mean Grad 40.3 mmHg MV VTI Annulus 0.266 m MR PISA Radius 0.60 cm MV Area VTI 1.38 (4.0-6.0 cm2) MR EROA 0.21 cm2 MR Aliasing Velocity 0.35 m/s MR PISA 2.26 cm2 Pulmonary Valve PV Vmax 0.61 (0.5-1.5 m/s) RVOT Peak Gr. 0.85 mmHg PV Peak Grad 1.5 mmHg RVOT Mean Gr. 0.35 mmHg PV Mean Grad 0.7 mmHg RVOT VTI 0.054 m PV VTI 0.097 m RVOT Vmax 0.46 m/s Tricuspid Valve TR Peak Grad 42.3 mmHg TR Vmax 3.25 m/s RA Pressure 8.00 mmHg RVSP (TR) 50.3 mmHg
--- NOTE | 2021-01-10 08:08 | W.PM.PROGNOT ---
Subjective Subjective Interval history since last seen: Threatening to leave AMA. Agrees to have echo. On room air. VSS. Refused meds this morning. Wants to leave. negative 1 L over 24 hrs. Objective Last Vital Signs Temp 36.0 C L 01/10/21 03:45 Pulse 70 01/10/21 06:46 Resp 19 01/10/21 07:00 BP 107/47 L 01/10/21 06:46 Pulse Ox 90 L 01/10/21 06:46 Laboratory Results - last 24 hr 01/10/21 06:08 Sodium 134 L Potassium 4.5 Chloride 99 Carbon Dioxide 26.0 Anion Gap 9.0 BUN 47 H Creatinine 1.6 H Estimated GFR/1.73 m2 44.46 Glucose 97 Calcium 8.6 Magnesium 2.3
--- NOTE | 2021-01-10 08:51 | PDOC.CMPRO ---
- If Service Date Differs Date of service: 01/10/21 Time of Service: 12:33 Care Management Progress Note S/O: Kareem continues to be closely monitored. He is advocated for returning home, awaiting ECHO at this time. CM continues to follow. A: 60 year old male admitted to [facility] 01/06/21 for PE P: Anticipate Kareem will return home when medically cleared. He will drive himself home, if able to do so. He will follow up with his PCP and discharge plan of care. CM will continue to follow. Kareem left against medical advice. CM supported new eliquis prescription [facility] and notified PCP of need for follow up to support further prescription support as needed.
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
== END 2021-01-10 10:30 | disposition left against medical advice (07) | DRG 175 ==
LOC: ER 22:48 → ICU 23:38 → MS 01-07 09:18 → ICU 01-07 13:59
PROVIDERS: Emergency Medicine; Family Medicine; Internal Medicine; Nurse Practitioner Acute Care; Admitting Provider Family Medicine; Emergency Provider Emergency Medicine; PCP Family Medicine; Visit Provider Family Medicine
DX: I26.99 Other pulmonary embolism without acute cor pulmonale (principal); I50.43 Acute on chronic combined systolic (congestive) and diastolic (congestive) heart failure; J96.01 Acute respiratory failure with hypoxia; I47.2 Ventricular tachycardia; N17.9 Acute kidney failure, unspecified; L97.811 Non-pressure chronic ulcer of other part of right lower leg limited to breakdown of skin; I82.412 Acute embolism and thrombosis of left femoral vein; I82.4Z2 Acute embolism and thrombosis of unspecified deep veins of left distal lower extremity; I82.441 Acute embolism and thrombosis of right tibial vein; I82.4Y1 Acute embolism and thrombosis of unspecified deep veins of right proximal lower extremity; I25.5 Ischemic cardiomyopathy; G89.29 Other chronic pain; M54.2 Cervicalgia; M54.9 Dorsalgia, unspecified; Q37.9 Unspecified cleft palate with unilateral cleft lip; I25.2 Old myocardial infarction; Z86.711 Personal history of pulmonary embolism; G47.00 Insomnia, unspecified; I34.0 Nonrheumatic mitral (valve) insufficiency; E11.42 Type 2 diabetes mellitus with diabetic polyneuropathy; F43.10 Post-traumatic stress disorder, unspecified; G47.30 Sleep apnea, unspecified; Z95.810 Presence of automatic (implantable) cardiac defibrillator; F17.290 Nicotine dependence, other tobacco product, uncomplicated; Z20.822 Contact with and (suspected) exposure to COVID-19; J43.2 Centrilobular emphysema; J98.6 Disorders of diaphragm; R55 Syncope and collapse; N18.9 Chronic kidney disease, unspecified; I25.10 Atherosclerotic heart disease of native coronary artery without angina pectoris; I87.2 Venous insufficiency (chronic) (peripheral); I51.3 Intracardiac thrombosis, not elsewhere classified; R91.8 Other nonspecific abnormal finding of lung field
CPT/HCPCS: 36410; 36415; 71275; 76770; 80048; 80053; 84145; 87040; 87635; 93005; 93306; 96365; 96368; 96375; 99285; 71045; 82728; 83615; 83735; 83880; 84484; 85025; 86140; 93010; 93970; 99222; 99233; 99239; 99291; J0696; J1885; J1940; J2060; J2405; J2543; J3490

== ENCOUNTER 2021-01-06 20:04 | Outpatient (REF) | payer OTHER, MEDICAID, SELFPAY ==
[2021-01-08 16:01] LABS: COVID-19 RT-PCR UVMMC Result Negative (Negative)
== END 2021-01-06 20:05 | disposition home or self-care (01) ==
LOC: NCHCN 20:04
PROVIDERS: PCP Family Medicine; Visit Provider Family Medicine
DX: Z20.822 Contact with and (suspected) exposure to COVID-19 (principal)
CPT/HCPCS: U0003